=== PATIENT | male | born 1950 | race African-American/Black ===

== ENCOUNTER 2017-03-19 19:44 | Inpatient (IN) | payer MEDICARE, MEDICAID ==
[~2017-03-19] VITALS: Ht 185.4 cm; Wt 70.6 kg
[~2017-03-19 19:44] MED LIST: ASPI-498 OR; B-CO-5 OR; CARV6.25 PO; CINA60TA PO; CLON0.1T PO; CLON0.3T PO; CLOP75TA41 PO; CYCL25CA7 PO; FURO40TA4 PO; LOS50T PO; MYCO180T PO; NIFE10CA3 PO; NIFEDIPINE ER PO; OMEP20CA74 PO; SEVE800T8 PO; SIMV-8 PO; SPIR25TA89 PO
[2017-03-19 21:15] LABS: Basophils # (auto) 0.1 uL; Basophils % (auto) 1.1 % (0.0-2.0); Eosinophils # (auto) 0.2 uL; Eosinophils % (auto) 2.2 % (0.0-7.0); Hematocrit 33.4 % (41.0-53.0); Hemoglobin 11.1 g/dL (13.5-17.5); Lymphocytes # (auto) 1.1 uL; Mean Corpuscular Hemoglobin 30.2 pg (28.0-32.0); Mean Corpuscular Hgb Conc. 33.1 g/dL (32.0-36.0); Mean Corpuscular Volume 91.1 fL (80.0-100.0); Monocytes # (auto) 0.9 uL; Neutrophils # (auto) 7.6 uL; Neutrophils % (auto) 76.7 % (37.0-80.0); Platelet Count (auto) 142 10^3/uL (140-450); Red Blood Cells 3.67 10^6/uL (4.5-5.90); Red Cell Distribution Width 13.4 % (11.8-14.3); White Blood Cell 9.9 10^3/uL (4.4-10.8)
[2017-03-19 21:26] LABS: Alanine Aminotransferase 10 U/L (16-61); Albumin 3.1 g/dL (3.4-5.0); Alkaline Phosphatase 244 U/L (45-117); Anion Gap 13 (5-15); Aspartate Aminotransferase 6 U/L (15-37); Bilirubin, Total 0.4 mg/dL (0.2-1.0); Blood Urea Nitrogen 24 mg/dL (7-18); Calcium 8.2 mg/dL (8.5-10.1); Carbon Dioxide 30 mmol/L (21-32); Chloride 95 mmol/L (98-107); GFR African American 9 mL/min; GFR Non-African American 7 mL/min; Glucose 93 mg/dL (74-106); Potassium 4.1 mmol/L (3.5-5.1); Sodium 138 mmol/L (136-145); Total Protein 9.3 g/dL (6.4-8.2)
[2017-03-20] VITALS (9 sets, daily range): BP systolic 145–195; BP diastolic 72–86
[2017-03-20] MEDS ORDERED: ONDANSETRON HCL 4 MG/2 ML VIAL IV PRN (00:30)
[2017-03-20] MEDS ORDERED: ACETAMINOPHEN 500 MG TAB PO PRN (00:30)
[2017-03-20] MEDS: HYDROcodone-ACET 5/325MG TAB PO PRN ×2 (01:29→05:30)
[2017-03-20] MEDS ORDERED: cefTRIAXone 1GM/10ml IVPUSH 10 ML IV ONE (02:15)
[2017-03-20] MEDS ORDERED: CLINDAMYCIN 600MG IV 50 ML IV ONE (03:00)
[2017-03-20] MEDS: cloNIDine HCL 0.1 MG TAB PO SCH ×3 (05:29→21:11)
[2017-03-20] MEDS: MORPHINE SULFATE 4 MG/ML SYR/VIAL IV PRN ×2 (06:44→18:24)
[2017-03-20 08:59] LABS: Basophils # (auto) 0.1 uL; Basophils % (auto) 0.6 % (0.0-2.0); Eosinophils # (auto) 0.2 uL; Hematocrit 32.1 % (41.0-53.0); Hemoglobin 10.6 g/dL (13.5-17.5); Lymphocytes # (auto) 1.5 uL; Neutrophils # (auto) 6.6 uL; Neutrophils % (auto) 70.4 % (37.0-80.0); Nucleated Red Blood Cells % 0.1 %; Platelet Count (auto) 132 10^3/uL (140-450); Red Blood Cells 3.53 10^6/uL (4.5-5.90); Red Cell Distribution Width 13.8 % (11.8-14.3); White Blood Cell 9.4 10^3/uL (4.4-10.8)
[2017-03-20 09:08] LABS: BUN/Creatinine Ratio 2.8; Calcium 7.8 mg/dL (8.5-10.1); Potassium 4.3 mmol/L (3.5-5.1)
[2017-03-20] MEDS: SEVELAMER 800 MG TAB PO SCH ×3 (09:18→17:54)
[2017-03-20] MEDS ORDERED: CLOPIDOGREL BISULFATE 75 MG TAB PO SCH (10:00)
[2017-03-20] MEDS: CARVEDILOL 12.5 MG TAB PO SCH ×2 (10:23→21:12)
[2017-03-20] MEDS: ASPirin-EC 81 mg tab PO SCH (10:24)
[2017-03-20] MEDS ORDERED: LACTULOSE 20Gm/30ML SOLN PO ONE (13:00)
[2017-03-20] MEDS: CLINDAMYCIN HCL 150 MG CAP PO SCH ×2 (13:30→21:10)
[2017-03-20] MEDS ORDERED: CLINDAMYCIN 600MG IV 50 ML IV SCH (14:00)
[2017-03-20] MEDS ORDERED: NIFEdipine ER 30 MG TAB PO ONE (17:45)
[2017-03-20] MEDS: ATORVASTATIN 20 MG TAB PO SCH (21:12)
[2017-03-20] MEDS: LACTULOSE 20Gm/30ML SOLN PO SCH (21:24)
[2017-03-20] MEDS ORDERED: cefTRIAXone 1GM/10ml IVPUSH 10 ML IV SCH (22:00)
[2017-03-21] MEDS: HYDROcodone-ACET 5/325MG TAB PO PRN ×2 (02:53→22:39)
[2017-03-21] MEDS: CLINDAMYCIN HCL 150 MG CAP PO SCH ×3 (05:19→22:34)
[2017-03-21] MEDS: cloNIDine HCL 0.1 MG TAB PO SCH ×3 (05:20→22:33)
[2017-03-21 05:39] VITALS: BP 137/70
[2017-03-21 07:07] LABS: Basophils # (auto) 0.1 uL; Basophils % (auto) 0.8 % (0.0-2.0); Eosinophils # (auto) 0.3 uL; Eosinophils % (auto) 3.6 % (0.0-7.0); Hemoglobin 10.1 g/dL (13.5-17.5); Lymphocytes # (auto) 1.3 uL; Lymphocytes % (auto) 17.5 % (10.0-50.0); Mean Corpuscular Hemoglobin 30.8 pg (28.0-32.0); Mean Corpuscular Hgb Conc. 33.6 g/dL (32.0-36.0); Mean Corpuscular Volume 91.5 fL (80.0-100.0); Monocytes % (auto) 13.2 % (0.0-12.0); Neutrophils # (auto) 4.9 uL; Neutrophils % (auto) 64.9 % (37.0-80.0); Nucleated Red Blood Cells % 0.1 %; Platelet Count (auto) 122 10^3/uL (140-450); Red Blood Cells 3.28 10^6/uL (4.5-5.90); Red Cell Distribution Width 13.3 % (11.8-14.3); White Blood Cell 7.5 10^3/uL (4.4-10.8)
[2017-03-21 07:12] LABS: Calcium 8.2 mg/dL (8.5-10.1); Potassium 4.7 mmol/L (3.5-5.1)
[2017-03-21 07:21] LABS: BUN/Creatinine Ratio 3.1
[2017-03-21] MEDS: SEVELAMER 800 MG TAB PO SCH ×3 (08:20→17:13)
[2017-03-21 09:00] VITALS: BP 128/67
[2017-03-21] MEDS: MORPHINE SULFATE 4 MG/ML SYR/VIAL IV PRN ×2 (09:02→18:16)
[2017-03-21] MEDS: LACTULOSE 20Gm/30ML SOLN PO SCH ×2 (09:42→22:36)
[2017-03-21] MEDS: ASPirin-EC 81 mg tab PO SCH (09:44)
[2017-03-21] MEDS: CARVEDILOL 12.5 MG TAB PO SCH ×2 (09:44→22:35)
[2017-03-21] MEDS: NIFEdipine ER 30 MG TAB PO SCH (09:44)
[2017-03-21] MEDS ORDERED: CLOPIDOGREL BISULFATE 75 MG TAB PO SCH (10:00)
[2017-03-21] MEDS ORDERED: EPOETIN ALFA 10,000 UNIT/1 ML VIAL IV ONE (11:15)
[2017-03-21] MEDS ORDERED: SODIUM CHL 0.9% 1000 ML BAG XX ONE (11:15)
[2017-03-21 13:00] VITALS: BP 140/72
[2017-03-21] MEDS ORDERED: LABETALOL HCL 5 MG/ML ML 20ML VIAL IV PRN (15:45)
[2017-03-21 17:00] VITALS: BP 156/71
[2017-03-21] MEDS: Novasource Renal 8 Ounces PO SCH (17:13)
[2017-03-21] MEDS ORDERED: IOHEXOL 300 MG/ML 100ML BOTTLE IJ ONE (17:22)
[2017-03-21 22:00] VITALS: BP 150/72
[2017-03-21 22:24] VITALS: BP 170/78
[2017-03-21] MEDS: ATORVASTATIN 20 MG TAB PO SCH (22:33)
[2017-03-22 05:18] VITALS: BP 150/77
[2017-03-22] MEDS: CLINDAMYCIN HCL 150 MG CAP PO SCH (05:28)
[2017-03-22] MEDS: cloNIDine HCL 0.1 MG TAB PO SCH ×3 (05:29→22:40)
[2017-03-22 05:35] LABS: INR 1.09 (0.9-1.15); Partial Thromboplastin Time 34.5 sec (22.64-33.71); Prothrombin Time 11.9 sec (9.37-12.3)
[2017-03-22] MEDS: SEVELAMER 800 MG TAB PO SCH ×3 (08:00→17:53)
[2017-03-22] MEDS: Novasource Renal 8 Ounces PO SCH ×5 (08:00→22:41)
[2017-03-22 08:49] VITALS: BP 140/71
[2017-03-22] MEDS ORDERED: VANCOMYCIN PER PHARMACY 0 MG IV SCH (09:15)
[2017-03-22] MEDS: LACTULOSE 20Gm/30ML SOLN PO SCH ×2 (10:00→22:00)
[2017-03-22] MEDS: ASPirin-EC 81 mg tab PO SCH (10:00)
[2017-03-22] MEDS: ASCORBIC ACID 500 MG TAB PO SCH ×2 (10:00→22:41)
[2017-03-22] MEDS ORDERED: B-COMPLEX W/ C & FOLIC ACID(NEPHROVITE TAB) PO SCH (10:00)
[2017-03-22 11:36] LABS: BUN/Creatinine Ratio 2.3; Calcium 8.1 mg/dL (8.5-10.1)
[2017-03-22 11:38] LABS: Bilirubin, Total 0.4 mg/dL (0.2-1.0)
[2017-03-22] MEDS ORDERED: VANCOMYCIN 1GM/250ML 250 ML IV ONE (12:00)
[2017-03-22] MEDS: CARVEDILOL 12.5 MG TAB PO SCH ×2 (12:37→22:40)
[2017-03-22] MEDS: NIFEdipine ER 30 MG TAB PO SCH (12:38)
[2017-03-22] MEDS: PIPERACILLIN-TAZOB 2.25GM 50 ML IV SCH ×2 (12:40→22:39)
[2017-03-22 13:00] VITALS: BP 168/84
[2017-03-22] MEDS ORDERED: SODIUM CHL 0.9% 1000 ML BAG XX ONE (13:15)
[2017-03-22] MEDS ORDERED: MIDAZOLAM HCL 1MG/1ML-2 ML VIAL ONE (14:15)
[2017-03-22] MEDS ORDERED: fentaNYL CITRATE 100 MCG/2 ML VL ONE (14:16)
[2017-03-22 17:08] VITALS: BP 130/67
[2017-03-22] MEDS: HYDROcodone-ACET 5/325MG TAB PO PRN (18:44)
[2017-03-22 22:00] VITALS: BP 140/68
[2017-03-22 22:09] VITALS: BP 140/68
[2017-03-22] MEDS: ATORVASTATIN 20 MG TAB PO SCH (22:41)
[2017-03-22] MEDS: MORPHINE SULFATE 4 MG/ML SYR/VIAL IV PRN (22:57)
[2017-03-23 05:32] VITALS: BP 121/63
[2017-03-23 05:43] LABS: Hematocrit 28.8 % (41.0-53.0); Hemoglobin 9.6 g/dL (13.5-17.5); Mean Corpuscular Hemoglobin 30.4 pg (28.0-32.0); Mean Corpuscular Hgb Conc. 33.2 g/dL (32.0-36.0); Mean Corpuscular Volume 91.7 fL (80.0-100.0); Platelet Count (auto) 109 10^3/uL (140-450); Red Blood Cells 3.14 10^6/uL (4.5-5.90); Red Cell Distribution Width 13.8 % (11.8-14.3); White Blood Cell 11.8 10^3/uL (4.4-10.8)
[2017-03-23] MEDS: cloNIDine HCL 0.1 MG TAB PO SCH (05:43)
[2017-03-23 05:51] LABS: Calcium 8.3 mg/dL (8.5-10.1); Potassium 5.4 mmol/L (3.5-5.1)
[2017-03-23 05:57] LABS: Band Neutrophils % (manual) 0; Basophils % (manual) 0 (0.0-2.0); Metamyelocytes % 0; Myelocytes % 0; Promyelocytes % 0; Reactive Lymphocytes 0
[2017-03-23 05:58] LABS: Blast Cells 0
[2017-03-23 06:04] LABS: Albumin 2.8 g/dL (3.4-5.0); BUN/Creatinine Ratio 3.3; Bilirubin, Total 0.5 mg/dL (0.2-1.0); Total Protein 8.2 g/dL (6.4-8.2)
[2017-03-23] MEDS: SEVELAMER 800 MG TAB PO SCH (07:53)
[2017-03-23 09:18] VITALS: BP 135/64
[2017-03-23] MEDS: HYDROcodone-ACET 5/325MG TAB PO PRN ×2 (10:18→18:40)
[2017-03-23 12:11] LABS: Eosinophils % (manual) 1 (0-7); Lymphocytes % (manual) 11 (10.0-50.0); Monocytes % (manual) 7 (0-12)
[2017-03-23 12:18] VITALS: BP 125/68
[2017-03-23] MEDS: MORPHINE SULFATE 4 MG/ML SYR/VIAL IV PRN (14:37)
[2017-03-23 15:05] VITALS: BP 149/73
[2017-03-23 15:48] VITALS: BP 125/68
[2017-03-23] MEDS ORDERED: VANCOMYCIN 1GM/250ML 250 ML IV ONE (18:00)
== END 2017-03-23 18:50 | disposition home health service (06) | DRG 579 ==
LOC: ER 19:44 → EDBD 19:44 → TELE 19:45 → TELE-WESTW 03-20 02:10 → WEST WING 03-23 13:47
PROVIDERS: ADMIT Nurse Practitioner Family; ATTEND Internal Medicine
PROC: 0WBF3ZX Excision of Abdominal Wall, Percutaneous Approach, Diagnostic (ICD-10-PCS; principal; 2017-03-22)
PROC: 0W9G3ZZ Drainage of Peritoneal Cavity, Percutaneous Approach (ICD-10-PCS; 2017-03-22)
DX: S30.1XXA Contusion of abdominal wall, initial encounter (principal); J96.90 Respiratory failure, unspecified, unspecified whether with hypoxia or hypercapnia; N17.9 Acute kidney failure, unspecified; I13.2 Hypertensive heart and chronic kidney disease with heart failure and with stage 5 chronic kidney disease, or end stage renal disease; A41.9 Sepsis, unspecified organism; T86.11 Kidney transplant rejection; N18.6 End stage renal disease; L02.211 Cutaneous abscess of abdominal wall; Z94.0 Kidney transplant status; T86.12 Kidney transplant failure; C76.2 Malignant neoplasm of abdomen; Z99.2 Dependence on renal dialysis; K22.2 Esophageal obstruction; K21.9 Gastro-esophageal reflux disease without esophagitis; I50.9 Heart failure, unspecified; E03.9 Hypothyroidism, unspecified; E78.5 Hyperlipidemia, unspecified; B19.20 Unspecified viral hepatitis C without hepatic coma; M10.9 Gout, unspecified; I25.10 Atherosclerotic heart disease of native coronary artery without angina pectoris; D63.8 Anemia in other chronic diseases classified elsewhere; R19.09 Other intra-abdominal and pelvic swelling, mass and lump; K59.00 Constipation, unspecified; R20.0 Anesthesia of skin; R79.1 Abnormal coagulation profile; Z79.899 Other long term (current) drug therapy; Z82.0 Family history of epilepsy and other diseases of the nervous system; Z82.3 Family history of stroke; Z82.49 Family history of ischemic heart disease and other diseases of the circulatory system; Z86.73 Personal history of transient ischemic attack (TIA), and cerebral infarction without residual deficits; Z95.5 Presence of coronary angioplasty implant and graft; Z90.5 Acquired absence of kidney; I25.2 Old myocardial infarction; Z79.82 Long term (current) use of aspirin; Z88.1 Allergy status to other antibiotic agents; Z88.8 Allergy status to other drugs, medicaments and biological substances; Z71.3 Dietary counseling and surveillance
CPT/HCPCS: 10022; 36415; 72193; 74176; 76942; 80048; 80053; 80202; 82378; 84100; 84484; 85007; 85025; 85027; 85379; 85610; 85730; 87040; 87081; 87205; 90935; 93930; 93971; 94761; C1729; J0885; J1642; J2250; J2543; J3490

== ENCOUNTER 2017-04-15 14:35 | Inpatient (IN) | payer MEDICARE, MEDICAID ==
[~2017-04-15] VITALS: Ht 175.3 cm; Wt 61.1 kg
[~2017-04-15 14:35] MED LIST changes: -CLOP75TA41 PO
[2017-04-15 16:21] LABS: Basophils # (auto) 0.1 uL; Basophils % (auto) 1.2 % (0.0-2.0); Eosinophils # (auto) 0.2 uL; Eosinophils % (auto) 2.5 % (0.0-7.0); Hematocrit 26.8 % (41.0-53.0); Hemoglobin 8.9 g/dL (13.5-17.5); Lymphocytes # (auto) 1.2 uL; Lymphocytes % (auto) 18.7 % (10.0-50.0); Mean Corpuscular Hemoglobin 30.3 pg (28.0-32.0); Mean Corpuscular Hgb Conc. 33.2 g/dL (32.0-36.0); Mean Corpuscular Volume 91.2 fL (80.0-100.0); Monocytes # (auto) 0.6 uL; Monocytes % (auto) 8.7 % (0.0-12.0); Neutrophils # (auto) 4.4 uL; Neutrophils % (auto) 68.9 % (37.0-80.0); Nucleated Red Blood Cells % 0.1 %; Platelet Count (auto) 150 10^3/uL (140-450); Red Blood Cells 2.94 10^6/uL (4.5-5.90); Red Cell Distribution Width 13.7 % (11.8-14.3); White Blood Cell 6.4 10^3/uL (4.4-10.8)
[2017-04-15 16:48] LABS: Alanine Aminotransferase 9 U/L (16-61); Albumin 3.4 g/dL (3.4-5.0); Alkaline Phosphatase 222 U/L (45-117); Anion Gap 12 (5-15); Aspartate Aminotransferase 15 U/L (15-37); BUN/Creatinine Ratio 4.2; Bilirubin, Total 0.5 mg/dL (0.2-1.0); Blood Urea Nitrogen 38 mg/dL (7-18); Calcium 7.8 mg/dL (8.5-10.1); Carbon Dioxide 28 mmol/L (21-32); Chloride 94 mmol/L (98-107); GFR African American 8 mL/min; GFR Non-African American 6 mL/min; Glucose 138 mg/dL (74-106); Magnesium 2.5 mg/dL (1.6-2.6); Potassium 3.7 mmol/L (3.5-5.1); Sodium 134 mmol/L (136-145); Total Protein 10.1 g/dL (6.4-8.2)
[2017-04-15 16:55] LABS: INR 1.05 (0.9-1.15); Partial Thromboplastin Time 32.9 sec (22.64-33.71); Prothrombin Time 11.4 sec (9.37-12.3)
[2017-04-15] MEDS ORDERED: cefTRIAXone 1GM/10ml IVPUSH 10 ML IV ONE ×2 (20:05→20:15)
[2017-04-15] MEDS ORDERED: ACETAMINOPHEN 650 mg PER 20 mL UD PO ONE (21:30)
[2017-04-15] MEDS ORDERED: MORPHINE SULFATE 4 MG/ML SYR/VIAL IV PRN (22:15)
[2017-04-15] MEDS ORDERED: HYDROcodone-ACET 5/325MG TAB PO PRN (22:15)
[2017-04-15] MEDS ORDERED: ACETAMINOPHEN 325 MG TAB PO PRN (22:15)
[2017-04-15] MEDS ORDERED: ONDANSETRON HCL 4 MG/2 ML VIAL IV PRN (22:15)
[2017-04-15] MEDS ORDERED: NITROGLYCERIN 0.4 MG SL TAB SL PRN (22:15)
[2017-04-15 23:00] VITALS: BP 156/83
[2017-04-15 23:15] VITALS: BP 156/83
[2017-04-16] VITALS (8 sets, daily range): BP systolic 134–179; BP diastolic 64–78
[2017-04-16] MEDS ORDERED: CLOP75TA41 PO (04:03)
[2017-04-16] MEDS ORDERED: METO5TAB56 PO (04:03)
[2017-04-16] MEDS ORDERED: SODI650T PO (04:03)
[2017-04-16] MEDS ORDERED: NIFE60TA59 PO (04:03)
[2017-04-16] MEDS: cloNIDine HCL 0.1 MG TAB PO SCH ×3 (04:21→22:11)
[2017-04-16 06:35] LABS: Basophils # (auto) 0.1 uL; Eosinophils # (auto) 0.2 uL; Hematocrit 19.8 % (41.0-53.0); Mean Corpuscular Volume 90.2 fL (80.0-100.0); Monocytes # (auto) 0.8 uL
[2017-04-16 06:38] LABS: Eosinophils % (auto) 2.3 % (0.0-7.0); Lymphocytes # (auto) 1.3 uL; Lymphocytes % (auto) 18.7 % (10.0-50.0); Mean Corpuscular Hemoglobin 30.4 pg (28.0-32.0); Mean Corpuscular Hgb Conc. 33.7 g/dL (32.0-36.0); Monocytes % (auto) 11.8 % (0.0-12.0); Neutrophils # (auto) 4.5 uL; Neutrophils % (auto) 66.2 % (37.0-80.0); Nucleated Red Blood Cells % 0.1 %; Platelet Count (auto) 113 10^3/uL (140-450); Red Blood Cells 2.19 10^6/uL (4.5-5.90); Red Cell Distribution Width 13.6 % (11.8-14.3); White Blood Cell 6.8 10^3/uL (4.4-10.8)
[2017-04-16 06:48] LABS: Hemoglobin 6.7 g/dL (13.5-17.5)
[2017-04-16 06:52] LABS: Albumin 2.8 g/dL (3.4-5.0); Calcium 7.4 mg/dL (8.5-10.1); Potassium 4.1 mmol/L (3.5-5.1)
[2017-04-16 07:00] LABS: BUN/Creatinine Ratio 4.6; Bilirubin, Total 0.4 mg/dL (0.2-1.0)
[2017-04-16] MEDS: SPIRONOLACTONE 25 MG TAB PO SCH (10:00)
[2017-04-16] MEDS: ASPirin 81 mg TAB PO SCH (10:00)
[2017-04-16] MEDS: LOSARTAN POTASSIUM 50 MG TAB PO SCH (10:00)
[2017-04-16] MEDS: MYCOPHENOLATE 500 MG TAB PO SCH ×2 (10:00→22:00)
[2017-04-16] MEDS: ENOXAPARIN SOD 30 MG/0.3 ML SYRINGE SC SCH (10:00)
[2017-04-16] MEDS: CARVEDILOL 3.125 MG TAB PO SCH ×2 (10:00→23:11)
[2017-04-16] MEDS: SEVELAMER 800 MG TAB PO SCH ×3 (10:31→18:39)
[2017-04-16] MEDS: NIFEdipine ER 30 MG TAB PO SCH (10:34)
[2017-04-16] MEDS ORDERED: cloNIDine HCL 0.1 MG TAB PO ONE ×2 (11:30→13:30)
[2017-04-16] MEDS ORDERED: NITROGLYCERIN 0.4 MG SL TAB SL ONE (13:30)
[2017-04-16] MEDS: DOXYCYCLINE 100 MG TAB/CAP PO SCH ×2 (13:57→22:13)
[2017-04-16] MEDS: PRO-STAT 64 30ML PO SCH (18:39)
[2017-04-16] MEDS: Novasource Renal 8 Ounces PO SCH (18:39)
[2017-04-16] MEDS ORDERED: cefTRIAXone 1GM/10ml IVPUSH 10 ML IV SCH (22:00)
[2017-04-16] MEDS: ATORVASTATIN 20 MG TAB PO SCH (22:10)
[2017-04-16] MEDS: ASCORBIC ACID 500 MG TAB PO SCH (22:12)
[2017-04-17] VITALS (10 sets, daily range): BP systolic 141–158; BP diastolic 67–79
[2017-04-17] MEDS: TEMAZEPAM 15 MG CAP PO PRN (00:36)
[2017-04-17] MEDS: cloNIDine HCL 0.1 MG TAB PO SCH ×3 (06:00→22:30)
[2017-04-17 07:03] LABS: Basophils # (auto) 0.1 uL; Basophils % (auto) 1.1 % (0.0-2.0); Eosinophils # (auto) 0.2 uL; Eosinophils % (auto) 3.1 % (0.0-7.0); Lymphocytes # (auto) 1.3 uL; Monocytes # (auto) 0.7 uL; Red Blood Cells 2.46 10^6/uL (4.5-5.90); Red Cell Distribution Width 13.8 % (11.8-14.3)
[2017-04-17 07:06] LABS: Hematocrit 22.1 % (41.0-53.0); Hemoglobin 7.5 g/dL (13.5-17.5); Lymphocytes % (auto) 19.8 % (10.0-50.0); Mean Corpuscular Hemoglobin 30.6 pg (28.0-32.0); Mean Corpuscular Volume 89.8 fL (80.0-100.0); Neutrophils # (auto) 4.3 uL; Platelet Count (auto) 121 10^3/uL (140-450); White Blood Cell 6.6 10^3/uL (4.4-10.8)
[2017-04-17 07:21] LABS: BUN/Creatinine Ratio 4.6; Calcium 7.8 mg/dL (8.5-10.1); Magnesium 2.1 mg/dL (1.6-2.6); Potassium 4.1 mmol/L (3.5-5.1)
[2017-04-17] MEDS: SEVELAMER 800 MG TAB PO SCH ×3 (08:00→18:02)
[2017-04-17] MEDS: PRO-STAT 64 30ML PO SCH ×2 (08:00→18:02)
[2017-04-17] MEDS: Novasource Renal 8 Ounces PO SCH ×2 (08:00→18:02)
[2017-04-17] MEDS ORDERED: EPOETIN ALFA 10,000 UNIT/1 ML VIAL IV ONE (08:15)
[2017-04-17] MEDS ORDERED: LACTULOSE 20Gm/30ML SOLN PO PRN (09:15)
[2017-04-17] MEDS: ASPirin 81 mg TAB PO SCH (10:00)
[2017-04-17] MEDS: SPIRONOLACTONE 25 MG TAB PO SCH (10:00)
[2017-04-17] MEDS: LOSARTAN POTASSIUM 50 MG TAB PO SCH (10:00)
[2017-04-17] MEDS: MYCOPHENOLATE 500 MG TAB PO SCH ×2 (10:00→22:00)
[2017-04-17] MEDS: ENOXAPARIN SOD 30 MG/0.3 ML SYRINGE SC SCH (10:00)
[2017-04-17] MEDS ORDERED: ADENOSINE 59 MG in GIVE UN-DILUTED 0 ML IV STA (11:27)
[2017-04-17] MEDS: B-COMPLEX W/ C & FOLIC ACID(NEPHROVITE TAB) PO SCH (12:39)
[2017-04-17] MEDS: CARVEDILOL 3.125 MG TAB PO SCH ×2 (12:39→22:30)
[2017-04-17] MEDS: NIFEdipine ER 30 MG TAB PO SCH (12:41)
[2017-04-17] MEDS: ASCORBIC ACID 500 MG TAB PO SCH ×2 (12:41→22:28)
[2017-04-17] MEDS: DOXYCYCLINE 100 MG TAB/CAP PO SCH ×2 (12:41→22:28)
[2017-04-17] MEDS ORDERED: SENNA 8.6 MG TAB PO SCH (22:00)
[2017-04-17] MEDS: ATORVASTATIN 20 MG TAB PO SCH (22:28)
[2017-04-18] MEDS: TEMAZEPAM 15 MG CAP PO PRN (02:18)
[2017-04-18 05:00] VITALS: BP 142/73
[2017-04-18] MEDS: cloNIDine HCL 0.1 MG TAB PO SCH (06:00)
[2017-04-18 06:27] LABS: Basophils # (auto) 0.1 uL; Eosinophils # (auto) 0.2 uL; Eosinophils % (auto) 2.4 % (0.0-7.0); Hematocrit 26.5 % (41.0-53.0); Hemoglobin 8.8 g/dL (13.5-17.5); Lymphocytes # (auto) 1.3 uL; Lymphocytes % (auto) 18.6 % (10.0-50.0); Mean Corpuscular Hemoglobin 30.3 pg (28.0-32.0); Mean Corpuscular Hgb Conc. 33.4 g/dL (32.0-36.0); Mean Corpuscular Volume 90.7 fL (80.0-100.0); Monocytes # (auto) 0.8 uL; Monocytes % (auto) 12.1 % (0.0-12.0); Neutrophils # (auto) 4.5 uL; Neutrophils % (auto) 65.9 % (37.0-80.0); Nucleated Red Blood Cells % 0.1 %; Platelet Count (auto) 132 10^3/uL (140-450); Red Blood Cells 2.92 10^6/uL (4.5-5.90); Red Cell Distribution Width 13.8 % (11.8-14.3); White Blood Cell 6.8 10^3/uL (4.4-10.8)
[2017-04-18 07:00] LABS: BUN/Creatinine Ratio 4.6; Magnesium 2.5 mg/dL (1.6-2.6); Potassium 4.9 mmol/L (3.5-5.1)
[2017-04-18 08:00] VITALS: BP 142/73
[2017-04-18] MEDS: ENOXAPARIN SOD 30 MG/0.3 ML SYRINGE SC SCH (09:16)
[2017-04-18] MEDS: DOXYCYCLINE 100 MG TAB/CAP PO SCH (09:17)
[2017-04-18] MEDS: B-COMPLEX W/ C & FOLIC ACID(NEPHROVITE TAB) PO SCH (09:17)
[2017-04-18] MEDS: LOSARTAN POTASSIUM 50 MG TAB PO SCH (09:17)
[2017-04-18] MEDS: PRO-STAT 64 30ML PO SCH (09:18)
[2017-04-18 09:19] VITALS: BP 127/63
[2017-04-18] MEDS: NIFEdipine ER 30 MG TAB PO SCH (09:19)
[2017-04-18] MEDS: ASCORBIC ACID 500 MG TAB PO SCH (09:19)
[2017-04-18] MEDS: ASPirin 81 mg TAB PO SCH (09:20)
[2017-04-18] MEDS: CARVEDILOL 3.125 MG TAB PO SCH (09:20)
[2017-04-18] MEDS: SPIRONOLACTONE 25 MG TAB PO SCH (09:21)
[2017-04-18] MEDS: MYCOPHENOLATE 500 MG TAB PO SCH (09:21)
[2017-04-18] MEDS: Novasource Renal 8 Ounces PO SCH (09:21)
[2017-04-18] MEDS: SEVELAMER 800 MG TAB PO SCH (09:21)
[2017-04-18 12:00] VITALS: BP 148/65
== END 2017-04-18 12:30 | disposition home or self-care (01) | DRG 862 ==
LOC: EDBD 14:35 → ER 14:35 → TELE 14:36 → TELE-EAST 23:20
PROVIDERS: ADMIT Nurse Practitioner; ATTEND Internal Medicine
PROC: 5A1D70Z Performance of Urinary Filtration, Intermittent, Less than 6 Hours Per Day (ICD-10-PCS; principal; 2017-04-17)
PROC: 30233N1 Transfusion of Nonautologous Red Blood Cells into Peripheral Vein, Percutaneous Approach (ICD-10-PCS; 2017-04-17)
DX: T81.4XXA Infection following a procedure, initial encounter (principal); I50.43 Acute on chronic combined systolic (congestive) and diastolic (congestive) heart failure; I13.2 Hypertensive heart and chronic kidney disease with heart failure and with stage 5 chronic kidney disease, or end stage renal disease; Z76.82 Awaiting organ transplant status; N18.6 End stage renal disease; L02.211 Cutaneous abscess of abdominal wall; Z94.0 Kidney transplant status; K22.2 Esophageal obstruction; D63.8 Anemia in other chronic diseases classified elsewhere; E03.9 Hypothyroidism, unspecified; E78.5 Hyperlipidemia, unspecified; I25.10 Atherosclerotic heart disease of native coronary artery without angina pectoris; I35.1 Nonrheumatic aortic (valve) insufficiency; Y83.0 Surgical operation with transplant of whole organ as the cause of abnormal reaction of the patient, or of later complication, without mention of misadventure at the time of the procedure; G47.00 Insomnia, unspecified; M10.9 Gout, unspecified; K21.9 Gastro-esophageal reflux disease without esophagitis; Z82.0 Family history of epilepsy and other diseases of the nervous system; Z82.3 Family history of stroke; Z82.49 Family history of ischemic heart disease and other diseases of the circulatory system; Z86.73 Personal history of transient ischemic attack (TIA), and cerebral infarction without residual deficits; I25.2 Old myocardial infarction; Z99.2 Dependence on renal dialysis; Z99.81 Dependence on supplemental oxygen; Z88.1 Allergy status to other antibiotic agents; Z79.899 Other long term (current) drug therapy; Z88.2 Allergy status to sulfonamides; Z88.8 Allergy status to other drugs, medicaments and biological substances; Z71.3 Dietary counseling and surveillance; Y92.89 Other specified places as the place of occurrence of the external cause
CPT/HCPCS: 36415; 71045; 76705; 80048; 80053; 83605; 83735; 83880; 84484; 85025; 85610; 85730; 86850; 86900; 86901; 86920; 87040; 87081; 90935; 93005; 93306; 94761; 96374; J0153; J0885; J7517

== ENCOUNTER 2018-04-04 18:42 | Emergency (ER) | payer MEDICARE, MEDICAID ==
[~2018-04-04] VITALS: Ht 175.3 cm; Wt 61.2 kg
[~2018-04-04 18:42] MED LIST changes: -CINA60TA PO; -CLON0.3T PO; +CLOP75TA41 PO; -CYCL25CA7 PO; -FURO40TA4 PO; -LOS50T PO; +METO5TAB56 PO; -MYCO180T PO; -NIFE10CA3 PO; +NIFE60TA59 PO; -NIFEDIPINE ER PO; -OMEP20CA74 PO; +SODI650T PO; -SPIR25TA89 PO
[2018-04-04 19:46] LABS: Basophils # (auto) 0.1 uL; Basophils % (auto) 1.2 % (0.0-2.0); Eosinophils # (auto) 0.2 uL; Hematocrit 37.4 % (41.0-53.0); Hemoglobin 12.2 g/dL (13.5-17.5); Lymphocytes # (auto) 1.2 uL; Mean Corpuscular Hgb Conc. 32.6 g/dL (32.0-36.0); Mean Corpuscular Volume 89.1 fL (80.0-100.0); Monocytes # (auto) 0.9 uL; Monocytes % (auto) 15.7 % (0.0-12.0); Neutrophils # (auto) 3.1 uL; Neutrophils % (auto) 57.1 % (37.0-80.0); Nucleated Red Blood Cells % 0.1 %; Platelet Count (auto) 119 10^3/uL (140-450); Red Cell Distribution Width 17.3 % (11.8-14.3); White Blood Cell 5.4 10^3/uL (4.4-10.8)
[2018-04-04 20:02] LABS: Albumin 3.6 g/dL (3.4-5.0); Calcium 9.1 mg/dL (8.5-10.1); Potassium 4.3 mmol/L (3.5-5.1)
[2018-04-04 20:06] LABS: BUN/Creatinine Ratio 3.4; Bilirubin, Total 0.4 mg/dL (0.2-1.0)
[2018-04-05 01:17] VITALS: BP 145/67
== END 2018-04-05 01:24 | disposition home or self-care (01) ==
LOC: ER 18:51
DX: K66.8 Other specified disorders of peritoneum (principal); I25.10 Atherosclerotic heart disease of native coronary artery without angina pectoris; E78.5 Hyperlipidemia, unspecified; I25.2 Old myocardial infarction; I13.2 Hypertensive heart and chronic kidney disease with heart failure and with stage 5 chronic kidney disease, or end stage renal disease; N18.6 End stage renal disease; I50.9 Heart failure, unspecified; Z87.891 Personal history of nicotine dependence; Z88.2 Allergy status to sulfonamides; Z88.1 Allergy status to other antibiotic agents; Z79.01 Long term (current) use of anticoagulants; Z79.82 Long term (current) use of aspirin; Z79.899 Other long term (current) drug therapy
CPT/HCPCS: 36415; 80053; 85025; 87040

== ENCOUNTER 2018-04-18 18:07 | Emergency (ER) | payer MEDICARE, MEDICAID ==
[~2018-04-18] VITALS: Ht 188 cm; Wt 86.2 kg
[2018-04-18] MEDS ORDERED: cloNIDine HCL 0.1 MG TAB PO ONE ×2 (18:45→21:30)
[2018-04-18] MEDS ORDERED: ONDANSETRON HCL 4 MG/2 ML VIAL IV ONE (19:30)
[2018-04-18] MEDS ORDERED: MORPHINE SULFATE 4 MG/ML SYR/VIAL IV ONE (19:30)
[2018-04-18 22:29] VITALS: BP 227/104
== END 2018-04-18 22:37 | disposition home or self-care (01) ==
LOC: EDBD 18:07 → ER 18:07
DX: I16.0 Hypertensive urgency (principal); I13.2 Hypertensive heart and chronic kidney disease with heart failure and with stage 5 chronic kidney disease, or end stage renal disease; N18.6 End stage renal disease; I50.9 Heart failure, unspecified; I25.10 Atherosclerotic heart disease of native coronary artery without angina pectoris; E78.5 Hyperlipidemia, unspecified; I25.2 Old myocardial infarction; Z86.73 Personal history of transient ischemic attack (TIA), and cerebral infarction without residual deficits; Z87.891 Personal history of nicotine dependence
CPT/HCPCS: 70450; 96374; 96375; 99284; J2270; J2405

== ENCOUNTER → 2018-04-22 | Outpatient (CLI) | payer MEDICARE, MEDICAID | END | disposition home or self-care (01) | LOC: LAB 08:34 | PROVIDERS: ATTEND Surgery | DX: N50.1 Vascular disorders of male genital organs (principal) | CPT/HCPCS: 36415; 82565; 84520 ==

== ENCOUNTER 2019-05-31 10:43 | Inpatient (IN) | payer MEDICARE, MEDICAID ==
[~2019-05-31] VITALS: Ht 175.3 cm; Wt 65.1 kg
[~2019-05-31 10:43] MED LIST changes: +NIFE1TAB30 PO; -NIFE60TA59 PO
[2019-05-31] MEDS ORDERED: SODIUM CHLORIDE 0.9% 1,000 ML IV ONE (10:55)
[2019-05-31 11:21] LABS: Basophils # (auto) 0.1 10 ^3/uL (0-0.2); Eosinophils # (auto) 0.2 10 ^3/uL (0-0.8); Eosinophils % (auto) 1.6 % (0.0-7.0); Lymphocytes # (auto) 0.8 10 ^3/uL (0.4-5.4); Mean Corpuscular Hgb Conc. 32.9 g/dL (32.0-36.0); Monocytes # (auto) 0.7 10 ^3/uL (0-1.3); Platelet Count (auto) 205 10^3/uL (140-450)
[2019-05-31 11:22] LABS: Basophils % (auto) 0.9 % (0.0-2.0); Hematocrit 24.4 % (41.0-53.0); Hemoglobin 8.1 g/dL (13.5-17.5); Lymphocytes % (auto) 9.1 % (10.0-50.0); Mean Corpuscular Hemoglobin 28.3 pg (28.0-32.0); Mean Corpuscular Volume 85.9 fL (80.0-100.0); Monocytes % (auto) 7.1 % (0.0-12.0); Neutrophils # (auto) 7.5 10 ^3/uL (1.6-8.6); Neutrophils % (auto) 81.3 % (37.0-80.0); Nucleated Red Blood Cells % 0.1 %; Red Blood Cells 2.85 10^6/uL (4.5-5.90); Red Cell Distribution Width 14.8 % (11.8-14.3); White Blood Cell 9.2 10^3/uL (4.4-10.8)
[2019-05-31 11:35] LABS: Albumin 3.2 g/dL (3.4-5.0); Calcium 8.9 mg/dL (8.5-10.1)
[2019-05-31 11:39] LABS: BUN/Creatinine Ratio 2.8; Bilirubin, Total 0.6 mg/dL (0.2-1.0)
[2019-05-31 11:46] LABS: Potassium 3.7 mmol/L (3.5-5.1)
[2019-05-31 11:56] LABS: Magnesium 2.2 mg/dL (1.6-2.6)
[2019-05-31] MEDS ORDERED: FUROSEMIDE 40 MG/4 ML VIAL IV ONE (12:45)
[2019-05-31] MEDS ORDERED: FUROSEMIDE 100 MG/10ML VIAL IV ONE (13:15)
[2019-05-31] MEDS ORDERED: MORPHINE SULF INJ 2 MG/ML SYRINGE 1ML IV PRN (14:00)
[2019-05-31] MEDS ORDERED: NITROGLYCERIN 0.4 MG SL TAB SL PRN (14:00)
[2019-05-31] MEDS ORDERED: ONDANSETRON HCL 4 MG/2 ML VIAL IV PRN (14:00)
--- NOTE | 2019-05-31 15:10 | NUR ---
PATIENT ARRIVED TO ROOM FROM ER. PATIENT ORIENTED TO ROOM, CALL LIGHT BEDSIDE, BED IN LOCKED AND LOWEST POSITION AND 2X SIDE RAILS UP. NO COMPLAINTS OF PAIN/DISCOMFORT FROM PATIENT. VS 134/67, 98.9, 68HR, 95%RA, 18RR. WILL CONTINUE TO MONITOR Q1HR AND PRN
[2019-05-31 16:00] VITALS: BP 132/67
--- NOTE | 2019-05-31 16:30 | NUR ---
eMAR shows order for 30 ml/hr of NS started in ER. Per patient, he does not want any fluids administered
[2019-05-31 17:32] VITALS: BP 148/69
[2019-05-31] MEDS: SEVELAMER 800 MG TAB PO SCH (17:54)
[2019-05-31] MEDS ORDERED: PANT40TA2 PO (19:03)
[2019-05-31] MEDS ORDERED: DOCU-94 PO (19:03)
--- NOTE | 2019-05-31 19:10 | NUR ---
OPENING SHIFT NOTE: ASSUMED CARE OF PATIENT. PATIENT IS AWAKE, ALERT AND ORIENTED X4. NO S/S OF SOB OR DISTRESS AND PATIENT DENIES PAIN. BED IS LOW, LOCKED, TWO SIDE RAILS RAISED AND CALL ALANIS IS WITHIN REACH. PATIENT CONNECTED TO CONTINUOUS TELEMETRY MONITORING #74 AND CURRENT READING IS 72 BPM. INSTRUCTED PATIENT ON POC AND ENCOURAGED TO USE CALL LIGHT, PATIENT VERBALIZES UNDERSTANDING. WILL CONTINUE TO MONITOR FOR CHANGES Q1 HR AND PRN.
[2019-05-31 20:00] VITALS: BP 161/76
[2019-05-31] MEDS: ATORVASTATIN 20 MG TAB PO SCH (21:40)
[2019-05-31] MEDS: CARVEDILOL 12.5 MG TAB PO SCH (21:41)
[2019-05-31 22:00] VITALS: BP 161/76
[2019-05-31] MEDS ORDERED: CARVEDILOL 12.5 MG PO SCH (22:00)
[2019-06-01] VITALS (7 sets, daily range): BP systolic 143–182; BP diastolic 66–89
[2019-06-01] MEDS: TEMAZEPAM 15 MG CAP PO PRN ×2 (00:36→21:40)
[2019-06-01] MEDS: hydrALAZINE HCL 20 MG/ML VL IV PRN (05:19)
[2019-06-01 05:29] LABS: Basophils # (auto) 0.1 10 ^3/uL (0-0.2); Eosinophils # (auto) 0.2 10 ^3/uL (0-0.8); Hematocrit 23.7 % (41.0-53.0); Hemoglobin 7.8 g/dL (13.5-17.5); Mean Corpuscular Hgb Conc. 32.8 g/dL (32.0-36.0)
[2019-06-01 05:32] LABS: Basophils % (auto) 0.7 % (0.0-2.0); Eosinophils % (auto) 1.9 % (0.0-7.0); Lymphocytes % (auto) 8.4 % (10.0-50.0); Mean Corpuscular Hemoglobin 28.5 pg (28.0-32.0); Mean Corpuscular Volume 86.8 fL (80.0-100.0); Monocytes % (auto) 8.6 % (0.0-12.0); Neutrophils # (auto) 9.3 10 ^3/uL (1.6-8.6); Neutrophils % (auto) 80.4 % (37.0-80.0); Platelet Count (auto) 170 10^3/uL (140-450); Red Blood Cells 2.72 10^6/uL (4.5-5.90); Red Cell Distribution Width 14.9 % (11.8-14.3); White Blood Cell 11.6 10^3/uL (4.4-10.8)
[2019-06-01 05:44] LABS: Albumin 2.5 g/dL (3.4-5.0); BUN/Creatinine Ratio 3.3; Calcium 8.2 mg/dL (8.5-10.1); Potassium 4.2 mmol/L (3.5-5.1)
[2019-06-01 05:46] LABS: Bilirubin, Total 0.5 mg/dL (0.2-1.0); Total Protein 7.8 g/dL (6.4-8.2)
--- NOTE | 2019-06-01 06:30 | NUR ---
PATIENT BLOOD PRESSURE 160/70 AFTER 10 MG IV HYDRALAZINE. PATIENT IS CONCERNED BECAUSE HE STATES HE TAKES CLONIDINE 0.1 MG TID AT HOME AND IS NOT RECEIVING THE SAME MEDICATIONS AT THE HOSPITAL. PATIENT REQUESTS THAT I CALL A DOCTOR TO HAVE HIS CLONIDINE RESUMED WHILE IN THE HOSPITAL. WILL PAGE HOSPITALIST.
--- NOTE | 2019-06-01 06:40 | NUR ---
SPOKE WITH HOSPITALIST MD ECHEVARRIA, RECEIVED ORDER TO RESUME HOME MEDICATION OF CLONIDINE 0.1 MG TID, SEE EMAR FOR DETAILS.
[2019-06-01] MEDS: cloNIDine HCL 0.1 MG TAB PO SCH ×3 (06:48→21:42)
[2019-06-01] MEDS: SEVELAMER 800 MG TAB PO SCH ×3 (08:06→17:52)
[2019-06-01] MEDS: CLOPIDOGREL BISULFATE 75 MG TAB PO SCH (09:12)
[2019-06-01] MEDS: ASPirin-EC 81 mg tab PO SCH (09:12)
[2019-06-01] MEDS: FAMOTIDINE 20 MG TAB PO SCH (09:12)
[2019-06-01] MEDS: CARVEDILOL 12.5 MG TAB PO SCH ×2 (09:12→21:42)
[2019-06-01] MEDS: NIFEdipine ER 30 MG TAB PO SCH (09:13)
[2019-06-01] MEDS: LISINOPRIL 10 MG TAB PO SCH (09:14)
[2019-06-01] MEDS ORDERED: SODIUM CHL 0.9% 1000 ML BAG XX ONE (09:45)
[2019-06-01] MEDS ORDERED: metOLazone 5 MG TAB PO SCH (10:00)
[2019-06-01] MEDS ORDERED: PATIENTS OWN MEDICATION (Nifedipine (Nifedipine Er) 1 TAB) PO SCH (10:00)
--- NOTE | 2019-06-01 12:15 | NUR ---
DR BLACKMAN ON UNIT
--- NOTE | 2019-06-01 13:25 | NUR ---
DR FINCH BEDSIDE WITH PATIENT DISCUSSING PLAN OF CARE. ORDERS RECEIVED AND CARRIED OUT
--- NOTE | 2019-06-01 17:53 | NUR ---
DIALYSIS COMPLETE 4 LITERS REMOVED. PATIENT RESTING IN BED COMFORTABLY. BP 158/73. WILL CONTINUE TO MONITOR Q1H AND PRN
--- NOTE | 2019-06-01 19:10 | NUR ---
OPENING SHIFT NOTE: ASSUMED CARE OF PATIENT. PATIENT IS AWAKE, ALERT AND ORIENTED X4. NO S/S OF SOB OR DISTRESS AND PATIENT DENIES PAIN AT THIS TIME. BED IS LOW, LOCKED, TWO SIDE RAILS RAISED, AND CALL ALANIS IS WITHIN REACH. INSTRUCTED ON POC AND ENCOURAGED PATIENT TO CALL FOR ASSISTANCE, PATIENT VERBALIZED UNDERSTANDING. WILL CONTINUE TO MONITOR FOR CHANGES Q1 HR AND PRN.
[2019-06-01] MEDS ORDERED: EPOETIN ALFA 10,000 UNIT/1 ML VIAL SC ONE (21:00)
[2019-06-01] MEDS: ATORVASTATIN 20 MG TAB PO SCH (21:40)
--- NOTE | 2019-06-01 21:55 | NUR ---
PATIENT COMPLAINS OF PAIN IN BACK, 7/10, WILL MEDICATE FOR PAIN.
[2019-06-01] MEDS: HYDROcodone-ACET 5/325MG TAB PO PRN (21:57)
[2019-06-02 05:00] VITALS: BP 149/74
[2019-06-02] MEDS: ACETAMINOPHEN 500 MG TAB PO PRN ×2 (05:14→23:09)
--- NOTE | 2019-06-02 05:15 | NUR ---
TEMPERATURE OF 101.0, COOLING MEASURES IMPLEMENTED AND TYLENOL GIVEN. WILL CONTINUE TO MONITOR.
[2019-06-02 05:42] LABS: Basophils % (auto) 0.4 % (0.0-2.0); Eosinophils # (auto) 0.1 10 ^3/uL (0-0.8); Eosinophils % (auto) 0.7 % (0.0-7.0); Hemoglobin 7.5 g/dL (13.5-17.5); Lymphocytes # (auto) 0.6 10 ^3/uL (0.4-5.4); Mean Corpuscular Volume 84.9 fL (80.0-100.0); Red Cell Distribution Width 14.7 % (11.8-14.3)
[2019-06-02 05:44] LABS: Basophils # (auto) 0 10 ^3/uL (0-0.2); Hematocrit 22.8 % (41.0-53.0); Mean Corpuscular Hemoglobin 28.1 pg (28.0-32.0); Mean Corpuscular Hgb Conc. 33.1 g/dL (32.0-36.0); Monocytes # (auto) 0.9 10 ^3/uL (0-1.3); Neutrophils # (auto) 10.5 10 ^3/uL (1.6-8.6); Neutrophils % (auto) 86.9 % (37.0-80.0); Platelet Count (auto) 193 10^3/uL (140-450); Red Blood Cells 2.68 10^6/uL (4.5-5.90); White Blood Cell 12.1 10^3/uL (4.4-10.8)
[2019-06-02 05:57] LABS: Calcium 8.6 mg/dL (8.5-10.1); Potassium 4.5 mmol/L (3.5-5.1)
[2019-06-02 06:03] LABS: BUN/Creatinine Ratio 3.2
--- NOTE | 2019-06-02 06:03 | NUR ---
TEMPERATURE IS NOW 98.2. WILL CONTINUE TO MONITOR.
[2019-06-02] MEDS: cloNIDine HCL 0.1 MG TAB PO SCH ×3 (06:11→21:53)
--- NOTE | 2019-06-02 07:30 | NUR ---
Opening Shift Note Assumed care of patient, awake and alert, resting in bed. No S/S of distress/SOB or pain. Updated on POC and instructed to call for assistance PRN, patient verbalized understanding. Bed locked in lowest position, side rails up x2, call light within reach. Will continue to monitor for changes Q1hr and PRN.
[2019-06-02] MEDS: SEVELAMER 800 MG TAB PO SCH ×3 (08:32→17:40)
[2019-06-02 09:11] VITALS: BP 150/62
[2019-06-02] MEDS: NIFEdipine ER 30 MG TAB PO SCH (10:14)
[2019-06-02] MEDS: CLOPIDOGREL BISULFATE 75 MG TAB PO SCH (10:14)
[2019-06-02] MEDS: ASPirin-EC 81 mg tab PO SCH (10:14)
[2019-06-02] MEDS: CARVEDILOL 12.5 MG TAB PO SCH ×2 (10:15→21:53)
[2019-06-02] MEDS: LISINOPRIL 10 MG TAB PO SCH (10:15)
[2019-06-02] MEDS: FAMOTIDINE 20 MG TAB PO SCH (10:15)
[2019-06-02 12:30] VITALS: BP 146/68
--- NOTE | 2019-06-02 16:01 | NUR ---
assessment re: consult for independent living Patient is a 68 year old male who is alert and oriented. Patients cognitive abilities are intact. Prior to admission patient lived home with family and functioned independently. Patient informed me he is able to care for his own ADLs. Per patient he will return home to his prior living arrangements post discharge and family will transport him home. Patient has a fww and a cane for home use, but does not need to use them. Patient informed me his PCP is Dr Parish Azul. I informed patient of consult for independent living resources. Patient wanted to know about local apartment for the future. Patient stated he does not need anything at this time. I informed patient he has a right to speak to a social work professor regarding all care. I informed patient he has a right to participate in any and all discharge planning. Patient does not have a POA and advanced directive. I have offered patient information on POA and advanced directives. I informed the patient the advantages and benefits of having an Advanced Directive. Patient verbalized understanding and agreed to discharge plan. Addendum: 06/02/19 at 1611 by Rebeca Huerta Amended: Links added.
[2019-06-02 17:08] VITALS: BP 122/57
[2019-06-02 18:07] LABS: Hematocrit 24.2 % (41.0-53.0); Hemoglobin 7.9 g/dL (13.5-17.5)
--- NOTE | 2019-06-02 19:50 | NUR ---
Opening Shift Note Assumed care of patient, awake and alert. No S/S of distress/SOB or pain. Instructed on POC and to call for assist PRN, will continue to monitor for changes Q1hr and PRN. Patient stated to be cold, warm measuring taken.
[2019-06-02 20:00] VITALS: BP 139/67
--- NOTE | 2019-06-02 20:30 | NUR ---
Temperature Patient's temperature of 100.1, patients to have to pain but is extremely cold. Cooling measures taken.
[2019-06-02 21:48] VITALS: BP 139/67
[2019-06-02] MEDS: ATORVASTATIN 20 MG TAB PO SCH (21:53)
[2019-06-02] MEDS: TEMAZEPAM 15 MG CAP PO PRN (23:03)
--- NOTE | 2019-06-02 23:11 | NUR ---
Temperature Patient temperature of 102.7, cooling measures taken and Tylenol given.
[2019-06-03] VITALS (9 sets, daily range): BP systolic 133–172; BP diastolic 66–78
--- NOTE | 2019-06-03 00:10 | NUR ---
RE Temperature Temperature reassess 99.5 Patient complains of signs of pain or SOB.
[2019-06-03] MEDS: cloNIDine HCL 0.1 MG TAB PO SCH ×3 (05:38→21:35)
[2019-06-03 06:26] LABS: Basophils # (auto) 0.1 10 ^3/uL (0-0.2); Eosinophils # (auto) 0.1 10 ^3/uL (0-0.8); Lymphocytes # (auto) 0.9 10 ^3/uL (0.4-5.4); Monocytes # (auto) 0.8 10 ^3/uL (0-1.3); Neutrophils % (auto) 83.2 % (37.0-80.0)
[2019-06-03 06:30] LABS: Basophils % (auto) 0.8 % (0.0-2.0); Eosinophils % (auto) 1.1 % (0.0-7.0); Hematocrit 21.4 % (41.0-53.0); Hemoglobin 7.2 g/dL (13.5-17.5); Lymphocytes % (auto) 7.7 % (10.0-50.0); Mean Corpuscular Hemoglobin 28.5 pg (28.0-32.0); Mean Corpuscular Hgb Conc. 33.4 g/dL (32.0-36.0); Mean Corpuscular Volume 85.3 fL (80.0-100.0); Monocytes % (auto) 7.2 % (0.0-12.0); Neutrophils # (auto) 9.3 10 ^3/uL (1.6-8.6); Platelet Count (auto) 174 10^3/uL (140-450); Red Blood Cells 2.51 10^6/uL (4.5-5.90); Red Cell Distribution Width 14.7 % (11.8-14.3); White Blood Cell 11.2 10^3/uL (4.4-10.8)
[2019-06-03 06:49] LABS: Calcium 8.4 mg/dL (8.5-10.1); Potassium 4.9 mmol/L (3.5-5.1)
[2019-06-03 06:56] LABS: BUN/Creatinine Ratio 3.9
--- NOTE | 2019-06-03 06:58 | NUR ---
Critical Lab Creatine 10.40H. Patient is a dialysis patient and will have dialysis today. Page hospitalist, waiting to call back.
--- NOTE | 2019-06-03 07:02 | NUR ---
Patient aware of critical lab, no new orders given, will continue to monitor.
--- NOTE | 2019-06-03 07:04 | NUR ---
Closing Note Endorse care to dayshift nurse, nurse aware of critical lab.
--- NOTE | 2019-06-03 07:20 | NUR ---
Opening Shift Note Assumed care, patient is resting with eyes closed. No S/S of distress/SOB or pain. Bed locked in lowest position, side rails up x2, call light within reach. Will continue to monitor for changes Q1hr and PRN.
[2019-06-03] MEDS: SEVELAMER 800 MG TAB PO SCH ×3 (08:32→17:37)
[2019-06-03] MEDS: cefTRIAXone 1GM/50ML D5W 50 ML IV SCH ×2 (08:38→21:00)
[2019-06-03] MEDS: CLOPIDOGREL BISULFATE 75 MG TAB PO SCH (08:53)
[2019-06-03] MEDS: ASPirin-EC 81 mg tab PO SCH (08:53)
[2019-06-03] MEDS: FAMOTIDINE 20 MG TAB PO SCH (08:53)
[2019-06-03] MEDS: CARVEDILOL 12.5 MG TAB PO SCH ×2 (08:54→21:36)
[2019-06-03] MEDS: NIFEdipine ER 30 MG TAB PO SCH (08:54)
[2019-06-03] MEDS: LISINOPRIL 10 MG TAB PO SCH (08:54)
--- NOTE | 2019-06-03 09:09 | NUR ---
BLOOD PRESSURE MEDICATIONS PATIENT STATES HE DOES NOT TAKE BLOOD PRESSURE MEDICATIONS BEFORE DIALYSIS.
[2019-06-03] MEDS: LACTULOSE 20Gm/30ML SOLN PO SCH ×8 (10:21→23:20)
--- NOTE | 2019-06-03 10:21 | NUR ---
SPOKE WITH DR BLACKMAN RECEIVED NEW ORDERS FOR 2U PRBC TO BE GIVEN BY CARPENTRY TEACHER. ALSO, ADMINISTER LACTULOSE Q2 HOURS UNTIL PATIENT HAS BOWEL MOVEMENT. PATIENT TO PROVIDE STOOL OCCULT TO BE SENT TO LAB.
--- NOTE | 2019-06-03 12:00 | NUR ---
STEWARDESS SUPERVISOR AT BEDSIDE INFORMED RN THAT BLOOD PRODUCTS ARE READY AND ARE TO BE TRANSFUSED DURING DIALYSIS. WILL NOTIFY PRIMARY RN WHEN READY FOR BLOOD TO BE PICKED UP FROM LAB.
--- NOTE | 2019-06-03 12:47 | NUR ---
BLOOD TRANSFUSION BEGUN WITH HEALTH AND SAFETY CONSULTANT.
--- NOTE | 2019-06-03 13:30 | NUR ---
BLOOD TRANSFUSION COMPLETED. 500ML TRANSFUSED. VITALS STABLE. NO REACTION. PATIENT TOLERATED WELL.
--- NOTE | 2019-06-03 14:03 | NUR ---
2ND UNIT OF BLOOD STARTED BY GARBAGE WORKER. SEE TRANSFUSION LOG FOR VITALS.
--- NOTE | 2019-06-03 14:20 | NUR ---
2ND UNIT BLOOD TRANSFUSION COMPLETED. 500ML TRANSFUSED. VITALS STABLE PER INSURANCE REPRESENTATIVE. NO REACTION. PATIENT TOLERATED WELL.
--- NOTE | 2019-06-03 15:42 | NUR ---
DIALYSIS COMPLETED PER ARBORIST, PATIENT TOLERATED WELL, VITALS STABLE. 1.5L REMOVED. WILL CONTINUE CARE.
--- NOTE | 2019-06-03 20:00 | NUR ---
Opening Shift Note Assumed care of patient, awake and alert. No S/S of distress/SOB or pain. Instructed on POC and to call for assist PRN, will continue to monitor for changes Q1hr and PRN.
--- NOTE | 2019-06-03 20:30 | NUR ---
PT HAD BOWEL MOVEMENT PT'S STOOL SAMPLE SENT TO LAB. PATIENT ALSO STATED HAVING HEMORRHOIDS. NO PRIOR INFORMATION PROVIDED REGARDING THAT HISTORY. HISTORY UPDATED. WILL CONTINUE TO MONITOR. Addendum: 06/03/19 at 2051 by CLINT GARCIA RN HISTORY IN CHART.
[2019-06-03] MEDS: ATORVASTATIN 20 MG TAB PO SCH (21:36)
--- NOTE | 2019-06-03 22:00 | NUR ---
HOSPITALIST PAGED LAB CALLED. PATIENT'S BLOOD CULTURE SHOWED GRAM POSITIVE COCCI IN CHAINS. WILL AWAIT CALL BACK OR ORDERS.
[2019-06-03] MEDS ORDERED: VANCOMYCIN PER PHARMACY 0 MG IV SCH (22:15)
[2019-06-03] MEDS ORDERED: VANCOMYCIN 1GM/250ML 250 ML IV ONE (22:15)
--- NOTE | 2019-06-03 22:45 | NUR ---
IV insertion IV access obtained, via clean sterile technique by inserting 22 gauge catheter at RIGHT FOREARM after 2 attempt(s). IV secured properly. No trauma to site. Patient tolerated well. NOTE: []
--- NOTE | 2019-06-03 23:00 | NUR ---
BP MEDICATION REFUSED PATIENT'S RECHECK FOR BP WAS 156/76. MEDICATION ORDERED PRN FOR BP OVER 150. PATIENT AT THIS TIME REFUSING STATING THAT IT DOESN'T HELP AND THAT THEY WANT TO WAIT UNTIL MORNING. PATIENT INFORMED OF RISKS AND PATIENT VERBALIZED UNDERSTANDING. WILL CONTINUE TO MONITOR.
[2019-06-04] MEDS: TEMAZEPAM 15 MG CAP PO PRN ×2 (01:01→22:11)
[2019-06-04] MEDS: LACTULOSE 20Gm/30ML SOLN PO SCH ×11 (01:24→22:00)
[2019-06-04 05:00] VITALS: BP 159/75
[2019-06-04] MEDS: cloNIDine HCL 0.1 MG TAB PO SCH ×3 (05:15→22:04)
[2019-06-04] MEDS: hydrALAZINE HCL 20 MG/ML VL IV PRN (06:52)
[2019-06-04] MEDS ORDERED: SODIUM CHL 0.9% 1000 ML BAG XX ONE (07:00)
--- NOTE | 2019-06-04 07:30 | NUR ---
Opening shift note Care of patient assumed from NOC RN. Patient is AOx4, no s/s of sob, pain, or distress noted at this time. I updated patient on plan of care and patient verbalized understanding. Bed is in lowest locked position, side rails up x2, and call light within reach. I will continue to monitor Q1hr and PRN.
[2019-06-04 09:00] VITALS: BP 156/73
[2019-06-04] MEDS: SEVELAMER 800 MG TAB PO SCH ×3 (10:49→17:43)
[2019-06-04] MEDS: CLOPIDOGREL BISULFATE 75 MG TAB PO SCH (10:49)
[2019-06-04] MEDS: ASPirin-EC 81 mg tab PO SCH (10:49)
[2019-06-04] MEDS: NIFEdipine ER 30 MG TAB PO SCH (10:49)
[2019-06-04] MEDS: FAMOTIDINE 20 MG TAB PO SCH (10:49)
[2019-06-04] MEDS: cefTRIAXone 1GM/50ML D5W 50 ML IV SCH ×2 (10:50→22:02)
[2019-06-04] MEDS: CARVEDILOL 12.5 MG TAB PO SCH ×2 (10:50→22:03)
[2019-06-04] MEDS: LISINOPRIL 10 MG TAB PO SCH (10:50)
--- NOTE | 2019-06-04 10:55 | NUR ---
Physician rounding Dr. Severino at bedside. Updated him on patient status. No new orders at this time.
[2019-06-04 11:40] LABS: Basophils # (auto) 0.1 10 ^3/uL (0-0.2); Basophils % (auto) 0.8 % (0.0-2.0); Eosinophils # (auto) 0.1 10 ^3/uL (0-0.8); Eosinophils % (auto) 1.2 % (0.0-7.0); Hematocrit 25.9 % (41.0-53.0); Hemoglobin 8.7 g/dL (13.5-17.5); Lymphocytes # (auto) 0.9 10 ^3/uL (0.4-5.4); Lymphocytes % (auto) 8.1 % (10.0-50.0); Mean Corpuscular Hemoglobin 28.7 pg (28.0-32.0); Mean Corpuscular Hgb Conc. 33.5 g/dL (32.0-36.0); Mean Corpuscular Volume 85.8 fL (80.0-100.0); Monocytes # (auto) 1.2 10 ^3/uL (0-1.3); Monocytes % (auto) 11.1 % (0.0-12.0); Neutrophils # (auto) 8.3 10 ^3/uL (1.6-8.6); Neutrophils % (auto) 78.8 % (37.0-80.0); Nucleated Red Blood Cells % 0.1 %; Platelet Count (auto) 178 10^3/uL (140-450); Red Blood Cells 3.02 10^6/uL (4.5-5.90); Red Cell Distribution Width 14.8 % (11.8-14.3); White Blood Cell 10.6 10^3/uL (4.4-10.8)
[2019-06-04 13:00] VITALS: BP 135/73
--- NOTE | 2019-06-04 13:20 | NUR ---
Called pharmacy Spoke with Clarence regarding patients vancomycin order, per Tein the patients vanco trough level is too elevated to give the medication. Per Tein pharmacy is monitoring the patient and it is most likely patient will receive vancomycin tomorrow once dialysis is done.
--- NOTE | 2019-06-04 13:40 | NUR ---
assessed B/P and patient refusing 1400 BP Patients B/p is currently 135/73, HR is 67 bpm. patient stated " My blood pressure is fine, i do not want my blood pressure medication right now, if i take it i know it will drop." Educated patient about medication, patient verbalized understanding. No s/s of distress noted.
[2019-06-04 17:00] VITALS: BP 134/59
--- NOTE | 2019-06-04 19:10 | NUR ---
end of shift note care of patient endorsed to NOC PRIMO Kamara. no s/s of distress noted at this time.
[2019-06-04] MEDS ORDERED: EPOETIN ALFA 10,000 UNIT/1 ML VIAL SC ONE (21:00)
[2019-06-04 22:00] VITALS: BP 150/65
[2019-06-04] MEDS: ATORVASTATIN 20 MG TAB PO SCH (22:03)
[2019-06-05] MEDS: LACTULOSE 20Gm/30ML SOLN PO SCH ×10 (02:00→18:00)
[2019-06-05 05:00] VITALS: BP 138/73
[2019-06-05] MEDS: cloNIDine HCL 0.1 MG TAB PO SCH ×4 (06:00→21:46)
[2019-06-05] MEDS ORDERED: SODIUM CHL 0.9% 1000 ML BAG XX ONE (07:00)
--- NOTE | 2019-06-05 07:25 | NUR ---
Opening shift note Assumed care from NOC RN Anh. Patient is AOx4 no s/s of distress noted at this time. Bed is in lowest locked position, call light is with in reach. Updated patient on plan of care, they verbalized understanding. I will continue to monitor Q 1HR and PRN.
[2019-06-05] MEDS: SEVELAMER 800 MG TAB PO SCH ×3 (08:27→18:03)
[2019-06-05 09:00] VITALS: BP 149/69
[2019-06-05] MEDS: cefTRIAXone 1GM/50ML D5W 50 ML IV SCH ×2 (09:00→21:00)
[2019-06-05] MEDS: CLOPIDOGREL BISULFATE 75 MG TAB PO SCH (10:00)
[2019-06-05] MEDS: LISINOPRIL 10 MG TAB PO SCH (10:00)
[2019-06-05] MEDS: ASPirin-EC 81 mg tab PO SCH (10:00)
[2019-06-05] MEDS: NIFEdipine ER 30 MG TAB PO SCH (10:00)
[2019-06-05] MEDS: FAMOTIDINE 20 MG TAB PO SCH (10:00)
[2019-06-05] MEDS: CARVEDILOL 12.5 MG TAB PO SCH ×2 (10:00→21:46)
--- NOTE | 2019-06-05 10:44 | NUR ---
called Dialysis center to get dialysis time for the patient, awaiting call back.
--- NOTE | 2019-06-05 10:50 | NUR ---
Dialysis nurse at bedside. Per nurse hold AM medications.
[2019-06-05 13:00] VITALS: BP 160/82
--- NOTE | 2019-06-05 14:47 | NUR ---
Dialysis complete per dialysis nurse 3 L were removed and patient tolerated procedure well. Current B/P is 154/79. I will give PRN B/P medications are ordered.
[2019-06-05 16:55] VITALS: BP 135/57
[2019-06-05] MEDS ORDERED: VANCOMYCIN 1GM/250ML 250 ML IV ONE (17:30)
--- NOTE | 2019-06-05 19:14 | NUR ---
end of shift note care of patient endorsed to noc geoff britton. no s/s of distress noted at this time.
[2019-06-05] MEDS ORDERED: LACTULOSE 20Gm/30ML SOLN PO PRN (20:00)
[2019-06-05] MEDS ORDERED: EPOETIN ALFA 10,000 UNIT/1 ML VIAL SC ONE (21:00)
[2019-06-05] MEDS: TEMAZEPAM 15 MG CAP PO PRN (21:45)
[2019-06-05] MEDS: ATORVASTATIN 20 MG TAB PO SCH (21:45)
[2019-06-05 21:52] VITALS: BP 264/71
[2019-06-06 04:59] VITALS: BP 141/81
[2019-06-06] MEDS: cloNIDine HCL 0.1 MG TAB PO SCH ×3 (06:33→21:28)
[2019-06-06 09:00] VITALS: BP 159/73
[2019-06-06] MEDS: cefTRIAXone 1GM/50ML D5W 50 ML IV SCH ×2 (09:41→21:33)
[2019-06-06] MEDS: FAMOTIDINE 20 MG TAB PO SCH (09:44)
[2019-06-06] MEDS: SEVELAMER 800 MG TAB PO SCH ×3 (09:45→16:59)
[2019-06-06] MEDS: CARVEDILOL 12.5 MG TAB PO SCH ×2 (09:45→21:33)
[2019-06-06] MEDS: NIFEdipine ER 30 MG TAB PO SCH (09:45)
[2019-06-06] MEDS: CLOPIDOGREL BISULFATE 75 MG TAB PO SCH (09:46)
[2019-06-06] MEDS: ASPirin-EC 81 mg tab PO SCH (09:46)
[2019-06-06] MEDS: LISINOPRIL 10 MG TAB PO SCH (09:46)
--- NOTE | 2019-06-06 11:22 | NUR ---
DR DOZIER SAW PATIENT AND DISCUSSED POC. REPORTS HE IS WAITING ON BLOOD CULTURES AND PT MAY POSSIBLY DC TOMORROW.
--- NOTE | 2019-06-06 12:57 | NUR ---
PT BP154/73, HR 62. WENT TO GIVE IV APRESOLINE PRN, PT REPORTS HE DOES NOT WANT IT, PT REPORTS,"IT DOESN'T WORK. AND IT'S ALMOST TIME FOR MY CATAPRES." HYDRALAZINE WASTED.
[2019-06-06 13:00] VITALS: BP 154/73
[2019-06-06 17:00] VITALS: BP 121/67
[2019-06-06] MEDS: ATORVASTATIN 20 MG TAB PO SCH (21:33)
[2019-06-06] MEDS: TEMAZEPAM 15 MG CAP PO PRN (21:34)
[2019-06-06 22:53] VITALS: BP 129/59
[2019-06-07] MEDS: MORPHINE SULF INJ 2 MG/ML SYRINGE 1ML IV PRN ×2 (01:34→04:27)
--- NOTE | 2019-06-07 01:35 | NUR ---
CHESTPAIN PATIENT C/O 4/10 LEFT UPPER CHEST PAIN NONRADIATING. PATIENT BP 138/65 HR 66. ADMINISTERED MORPHINE 2MG IV PRESCRIBED. WILL CONTINUE TO MONITOR PATIENT.
--- NOTE | 2019-06-07 03:23 | NUR ---
CHESTPAIN PATIENT C/O CHEST PAIN 8/10 LEFT UPPER RADIATION TO BACK. PATIENT VITALS TEMP 98.1 HR 63 RR 20 BP 147/70 O2 99%. OBTAINED EKG SR. REPORTED PATIENT CONDITION DR. VELASCO RECEIVED ORDER TO ADD TROPONIN TO AM LABS [facility].
--- NOTE | 2019-06-07 04:28 | NUR ---
CHESTPAIN PATIENT C/O 10 LEFT UPPER CHEST PAIN NONRADIATING. ADMINISTERED MORPHINE 2MG IV PRESCRIBED. WILL CONTINUE TO MONITOR PATIENT.
[2019-06-07 05:00] VITALS: BP 154/73
[2019-06-07] MEDS: cloNIDine HCL 0.1 MG TAB PO SCH ×2 (05:36→12:25)
[2019-06-07] MEDS: HYDROcodone-ACET 5/325MG TAB PO PRN (05:37)
[2019-06-07 06:12] LABS: Basophils # (auto) 0.1 10 ^3/uL (0-0.2); Eosinophils # (auto) 0.3 10 ^3/uL (0-0.8); Hematocrit 28.5 % (41.0-53.0); Hemoglobin 9.5 g/dL (13.5-17.5); Lymphocytes % (auto) 10.5 % (10.0-50.0); Mean Corpuscular Hemoglobin 28.6 pg (28.0-32.0); Mean Corpuscular Hgb Conc. 33.4 g/dL (32.0-36.0); Mean Corpuscular Volume 85.6 fL (80.0-100.0); Monocytes # (auto) 1.2 10 ^3/uL (0-1.3); Monocytes % (auto) 13.5 % (0.0-12.0); Neutrophils # (auto) 6.6 10 ^3/uL (1.6-8.6); Platelet Count (auto) 193 10^3/uL (140-450); Red Blood Cells 3.33 10^6/uL (4.5-5.90); Red Cell Distribution Width 14.8 % (11.8-14.3); White Blood Cell 9.2 10^3/uL (4.4-10.8)
[2019-06-07 06:23] LABS: Calcium 8.7 mg/dL (8.5-10.1)
[2019-06-07 09:00] VITALS: BP 159/74
[2019-06-07] MEDS: cefTRIAXone 1GM/50ML D5W 50 ML IV SCH (09:33)
[2019-06-07] MEDS: FAMOTIDINE 20 MG TAB PO SCH (09:36)
[2019-06-07] MEDS: LISINOPRIL 10 MG TAB PO SCH (09:37)
[2019-06-07] MEDS: CLOPIDOGREL BISULFATE 75 MG TAB PO SCH (09:37)
[2019-06-07] MEDS: ASPirin-EC 81 mg tab PO SCH (09:38)
[2019-06-07] MEDS: SEVELAMER 800 MG TAB PO SCH ×2 (09:38→12:25)
[2019-06-07] MEDS: NIFEdipine ER 30 MG TAB PO SCH (09:38)
[2019-06-07] MEDS: CARVEDILOL 12.5 MG TAB PO SCH (09:39)
--- NOTE | 2019-06-07 10:18 | NUR ---
DR DOZIER SAW PATIENT AND DISCUSSED POC. MD REPORTS HE WILL CHECK WITH DR BLACKMAN TO SEE IF PATIENT CAN DC OR IF HE NEEDS DIALYSIS FIRST, NO ORDERS FOR DIALYSIS PLACED TODAY. MD REPORTS BLOOD CULTURES NEGATIVE. PT AWARE. NOTIFIED DR DOZIER PT BP HAS BEEN IN THE 150'S AND PT DOES NOT WANT HYDRALAZINE, MD AWARE. NOTIFIED MD PT HAS CRITICAL CREATINE OF 10.20 AND HAD CHEST PAIN LAST NIGHT. MD AWARE, NO NEW ORDERS.
--- NOTE | 2019-06-07 10:21 | NUR ---
CALLED DR CROSS OFFICE, LEFT MESSAGE WITH STAFF REQUESTING CALL BACK.
[2019-06-07] MEDS ORDERED: SODIUM CHL 0.9% 1000 ML BAG XX ONE (11:15)
[2019-06-07 13:00] VITALS: BP 147/65
--- NOTE | 2019-06-07 13:44 | NUR ---
DIALYSIS NURSE HERE, SHE REPORTS SHE IS ABOUT TO DIALYZE PATIENT.
[2019-06-07 14:32] VITALS: BP 159/74
--- NOTE | 2019-06-07 16:11 | NUR ---
PT REPORTS HE NEEDS ASSISTANCE WITH A RIDE HOME. CALLED [facility]DE[employer] [employer]FF[employer] SERVICES ASSISTANT, SHE REPORTS SHE WILL COME BRING TAXI VOUCHER.
[2019-06-07 17:00] VITALS: BP 127/68
--- NOTE | 2019-06-07 17:36 | NUR ---
CALLED [facility], THEY REPORT THEY WILL BE HERE IN 10 TO 15 MINUTES. PT O2 ON ROOM AIR IS 98% WHILE AMBULATING IN HALLWAYS.
--- NOTE | 2019-06-07 17:50 | NUR ---
Discharge instructions given as ordered. Encourage to follow up with PMD Dr Azul as instructed. All questions and concerns addressed. Patient verbalized understanding. Medication reconciliation form completed and copy given to patient. Home medications held in Pharmacy returned to patient. IV's removed with catheters intact, pressure dressings applied. Telemetry unit returned to ICU. Patient taken to taxi via wheelchair with all personal belongings, accompanied by staff. No distress noted at time of departure.
--- NOTE | 2019-06-07 18:34 | NUR ---
PT DIALYSIS OUTPUT 3L REPORTED BY DIALYSIS NURSE. Addendum: 06/07/19 at 1836 by ZEUS SNYDER RN LAST BP 135/67, HR 72.
[2019-06-07] MEDS ORDERED: EPOETIN ALFA 10,000 UNIT/1 ML VIAL SC ONE (21:00)
== END 2019-06-07 18:00 | disposition home or self-care (01) | DRG 280 ==
LOC: EDBD 10:43 → ER 10:43 → EDUNIT# 10:43 → TELE 10:44 → TELE-WESTW 15:04
PROVIDERS: ADMIT Nurse Practitioner Acute Care; ATTEND Family Medicine
PROC: 5A1D70Z Performance of Urinary Filtration, Intermittent, Less than 6 Hours Per Day (ICD-10-PCS; principal; 2019-06-01)
PROC: 5A1D70Z Performance of Urinary Filtration, Intermittent, Less than 6 Hours Per Day (ICD-10-PCS; 2019-06-03)
PROC: 30233N1 Transfusion of Nonautologous Red Blood Cells into Peripheral Vein, Percutaneous Approach (ICD-10-PCS; 2019-06-03)
PROC: 5A1D70Z Performance of Urinary Filtration, Intermittent, Less than 6 Hours Per Day (ICD-10-PCS; 2019-06-05)
PROC: 5A1D70Z Performance of Urinary Filtration, Intermittent, Less than 6 Hours Per Day (ICD-10-PCS; 2019-06-07)
DX: I13.2 Hypertensive heart and chronic kidney disease with heart failure and with stage 5 chronic kidney disease, or end stage renal disease (principal); I50.43 Acute on chronic combined systolic (congestive) and diastolic (congestive) heart failure; I21.A1 Myocardial infarction type 2; N18.6 End stage renal disease; E44.0 Moderate protein-calorie malnutrition; E87.1 Hypo-osmolality and hyponatremia; J91.8 Pleural effusion in other conditions classified elsewhere; R78.81 Bacteremia; D63.1 Anemia in chronic kidney disease; I16.0 Hypertensive urgency; R79.89 Other specified abnormal findings of blood chemistry; I25.10 Atherosclerotic heart disease of native coronary artery without angina pectoris; R06.03 Acute respiratory distress; M10.9 Gout, unspecified; E78.5 Hyperlipidemia, unspecified; K59.00 Constipation, unspecified; Y83.0 Surgical operation with transplant of whole organ as the cause of abnormal reaction of the patient, or of later complication, without mention of misadventure at the time of the procedure; Z79.02 Long term (current) use of antithrombotics/antiplatelets; Z79.899 Other long term (current) drug therapy; I25.2 Old myocardial infarction; Z86.73 Personal history of transient ischemic attack (TIA), and cerebral infarction without residual deficits; Z99.2 Dependence on renal dialysis; Z82.0 Family history of epilepsy and other diseases of the nervous system; Z82.49 Family history of ischemic heart disease and other diseases of the circulatory system; Z95.5 Presence of coronary angioplasty implant and graft; Z90.5 Acquired absence of kidney; Z82.3 Family history of stroke; Z68.21 Body mass index [BMI] 21.0-21.9, adult; B95.4 Other streptococcus as the cause of diseases classified elsewhere
CPT/HCPCS: 36415; 71045; 71046; 80048; 80053; 80202; 82270; 82306; 82565; 83735; 83880; 83970; 84100; 84443; 84484; 85014; 85018; 85025; 86141; 86850; 86900; 86901; 86920; 87040; 87077; 87081; 87186; 90935; 93005; 96361; 96374; G0378; J0696; J0885; J1642; J2405

== ENCOUNTER 2020-03-14 21:54 | Inpatient (IN) | payer MEDICARE, MEDICAID ==
[~2020-03-14] VITALS: Ht 175.3 cm; Wt 69.0 kg
[~2020-03-14 21:54] MED LIST changes: -CLOP75TA41 PO; +CLOP75TA70 PO; +DOCU-94 PO; +PANT40TA2 PO
[2020-03-14 22:59] LABS: Basophils # (auto) 0.1 10 ^3/uL (0-0.2); Eosinophils # (auto) 0.3 10 ^3/uL (0-0.8); Eosinophils % (auto) 4.9 % (0.0-7.0); Hematocrit 35.8 % (41.0-53.0); Hemoglobin 11.9 g/dL (13.5-17.5); Lymphocytes # (auto) 1.5 10 ^3/uL (0.4-5.4); Lymphocytes % (auto) 27.1 % (10.0-50.0); Mean Corpuscular Hemoglobin 29.6 pg (28.0-32.0); Mean Corpuscular Hgb Conc. 33.1 g/dL (32.0-36.0); Mean Corpuscular Volume 89.6 fL (80.0-100.0); Monocytes # (auto) 0.7 10 ^3/uL (0-1.3); Monocytes % (auto) 13.5 % (0.0-12.0); Neutrophils # (auto) 2.9 10 ^3/uL (1.6-8.6); Neutrophils % (auto) 53.5 % (37.0-80.0); Platelet Count (auto) 103 10^3/uL (140-450); Red Cell Distribution Width 14.1 % (11.8-14.3); White Blood Cell 5.4 10^3/uL (4.4-10.8)
[2020-03-14 23:22] LABS: INR 1.08 (0.9-1.15); Partial Thromboplastin Time 31.8 sec (23.0-31.2)
[2020-03-14 23:29] LABS: Albumin 3.6 g/dL (3.4-5.0); Calcium 7.8 mg/dL (8.5-10.1); Potassium 4.3 mmol/L (3.5-5.1)
[2020-03-14 23:33] LABS: BUN/Creatinine Ratio 4.3; Magnesium 2.1 mg/dL (1.6-2.6)
[2020-03-14 23:38] LABS: Bilirubin, Total 0.3 mg/dL (0.2-1.0); Total Protein 8.1 g/dL (6.4-8.2)
[2020-03-15] MEDS ORDERED: ENOXAPARIN SOD 60 MG/0.6 ML SYRINGE SC ONE (01:00)
[2020-03-15] MEDS ORDERED: ACETAMINOPHEN 325 MG TAB PO PRN (01:45)
[2020-03-15] MEDS ORDERED: NITROGLYCERIN 0.4 MG SL TAB SL PRN ×2 (01:45)
[2020-03-15] MEDS ORDERED: MORPHINE SULF INJ 2 MG/ML SYRINGE 1ML IV PRN (01:45)
[2020-03-15] MEDS ORDERED: SODIUM CHLORIDE 0.9% 1,000 ML IV SCH (01:45)
[2020-03-15 04:27] LABS: Calcium 7.4 mg/dL (8.5-10.1); Potassium 4.6 mmol/L (3.5-5.1)
[2020-03-15 04:35] LABS: BUN/Creatinine Ratio 4.4
[2020-03-15 06:51] LABS: Basophils # (auto) 0.1 10 ^3/uL (0-0.2); Basophils % (auto) 1.2 % (0.0-2.0); Eosinophils # (auto) 0.3 10 ^3/uL (0-0.8); Eosinophils % (auto) 5.3 % (0.0-7.0); Hematocrit 32.7 % (41.0-53.0); Lymphocytes # (auto) 1.5 10 ^3/uL (0.4-5.4); Lymphocytes % (auto) 28.7 % (10.0-50.0); Mean Corpuscular Hemoglobin 30.2 pg (28.0-32.0); Mean Corpuscular Hgb Conc. 33.7 g/dL (32.0-36.0); Mean Corpuscular Volume 89.6 fL (80.0-100.0); Monocytes # (auto) 0.7 10 ^3/uL (0-1.3); Monocytes % (auto) 13.5 % (0.0-12.0); Neutrophils # (auto) 2.6 10 ^3/uL (1.6-8.6); Neutrophils % (auto) 51.3 % (37.0-80.0); Nucleated Red Blood Cells % 0.1 %; Platelet Count (auto) 94 10^3/uL (140-450); Red Blood Cells 3.65 10^6/uL (4.5-5.90); Red Cell Distribution Width 14.3 % (11.8-14.3); White Blood Cell 5.1 10^3/uL (4.4-10.8)
[2020-03-15 09:11] VITALS: BP 176/70
[2020-03-15] MEDS ORDERED: LISINOPRIL 5 MG TAB PO SCH (10:00)
[2020-03-15] MEDS: ASPirin 81 mg TAB PO SCH ×2 (10:00→11:44)
[2020-03-15] MEDS ORDERED: CARVEDILOL 3.125 MG TAB PO SCH (10:00)
[2020-03-15] MEDS ORDERED: NIFE90TA49 PO (10:48)
[2020-03-15] MEDS ORDERED: ASPI-498 PO (10:48)
[2020-03-15] MEDS ORDERED: MULT-647 PO (10:48)
[2020-03-15] MEDS: CLOPIDOGREL BISULFATE 75 MG TAB PO SCH (11:44)
[2020-03-15] MEDS ORDERED: cloNIDine HCL 0.1 MG TAB PO ONE (11:45)
[2020-03-15] MEDS ORDERED: PANTOPRAZOLE 40 MG TAB PO ONE (11:45)
[2020-03-15] MEDS ORDERED: CARVEDILOL 12.5 MG TAB PO ONE (11:45)
[2020-03-15] MEDS: SEVELAMER 800 MG TAB PO SCH ×2 (11:48→18:05)
[2020-03-15] MEDS: cloNIDine HCL 0.1 MG TAB PO SCH ×2 (15:24→21:56)
[2020-03-15 16:00] VITALS: BP 186/70
[2020-03-15] MEDS ORDERED: hydrALAZINE HCL 20 MG/ML VL IV PRN (18:15)
[2020-03-15] MEDS ORDERED: NIFEdipine ER 30 MG TAB PO ONE (18:15)
[2020-03-15 20:00] VITALS: BP 163/66
[2020-03-15] MEDS: ATORVASTATIN 20 MG TAB PO SCH (21:57)
[2020-03-15] MEDS: CARVEDILOL 12.5 MG TAB PO SCH (21:57)
[2020-03-15 22:00] VITALS: BP 163/66
[2020-03-16] MEDS: ENOXAPARIN SOD 60 MG/0.6 ML SYRINGE SC SCH (01:00)
[2020-03-16 05:50] VITALS: BP 120/58
[2020-03-16] MEDS: cloNIDine HCL 0.1 MG TAB PO SCH ×3 (06:01→22:00)
[2020-03-16] MEDS ORDERED: SODIUM CHL 0.9% 1000 ML BAG XX ONE (07:00)
[2020-03-16 08:00] VITALS: BP 137/61
[2020-03-16 08:00] LABS: Basophils # (auto) 0.1 10 ^3/uL (0-0.2); Basophils % (auto) 1.2 % (0.0-2.0); Eosinophils # (auto) 0.2 10 ^3/uL (0-0.8); Eosinophils % (auto) 4.5 % (0.0-7.0); Hematocrit 32.6 % (41.0-53.0); Hemoglobin 10.9 g/dL (13.5-17.5); Lymphocytes # (auto) 0.9 10 ^3/uL (0.4-5.4); Lymphocytes % (auto) 18.6 % (10.0-50.0); Mean Corpuscular Hgb Conc. 33.6 g/dL (32.0-36.0); Mean Corpuscular Volume 89.4 fL (80.0-100.0); Monocytes # (auto) 0.7 10 ^3/uL (0-1.3); Monocytes % (auto) 13.4 % (0.0-12.0); Neutrophils # (auto) 3.1 10 ^3/uL (1.6-8.6); Neutrophils % (auto) 62.3 % (37.0-80.0); Platelet Count (auto) 95 10^3/uL (140-450); Red Blood Cells 3.64 10^6/uL (4.5-5.90); Red Cell Distribution Width 14.3 % (11.8-14.3)
[2020-03-16 08:30] VITALS: BP 137/61
[2020-03-16] MEDS: SEVELAMER 800 MG TAB PO SCH ×3 (08:30→17:53)
[2020-03-16 08:32] LABS: Calcium 7.8 mg/dL (8.5-10.1); Potassium 5.1 mmol/L (3.5-5.1)
[2020-03-16 08:34] LABS: BUN/Creatinine Ratio 4.4
[2020-03-16] MEDS: ASPirin 81 mg TAB PO SCH (09:19)
[2020-03-16] MEDS: CARVEDILOL 12.5 MG TAB PO SCH ×2 (09:19→22:29)
[2020-03-16] MEDS: CLOPIDOGREL BISULFATE 75 MG TAB PO SCH (09:19)
[2020-03-16] MEDS: PANTOPRAZOLE 40 MG TAB PO SCH (09:19)
[2020-03-16 09:20] VITALS: BP 137/61
[2020-03-16 13:00] VITALS: BP 158/68
[2020-03-16 17:43] VITALS: BP 124/57
[2020-03-16] MEDS: ATORVASTATIN 20 MG TAB PO SCH (22:27)
[2020-03-17] VITALS (12 sets, daily range): BP systolic 126–161; BP diastolic 57–70
[2020-03-17] MEDS: ENOXAPARIN SOD 60 MG/0.6 ML SYRINGE SC SCH (00:23)
[2020-03-17] MEDS: cloNIDine HCL 0.1 MG TAB PO SCH ×3 (05:32→20:41)
[2020-03-17] MEDS: ASPirin 81 mg TAB PO SCH (08:56)
[2020-03-17] MEDS: CLOPIDOGREL BISULFATE 75 MG TAB PO SCH (08:56)
[2020-03-17] MEDS: SEVELAMER 800 MG TAB PO SCH ×3 (08:57→18:46)
[2020-03-17] MEDS: PANTOPRAZOLE 40 MG TAB PO SCH ×2 (08:57→13:00)
[2020-03-17] MEDS: CARVEDILOL 12.5 MG TAB PO SCH ×3 (08:57→20:43)
[2020-03-17] MEDS ORDERED: ANGIOMAX 250 MG VIAL IV ONE (09:19)
[2020-03-17] MEDS ORDERED: fentaNYL CITRATE 100 MCG/2 ML VL ONE (09:19)
[2020-03-17] MEDS ORDERED: SODIUM CHL 0.9% 50 ML ONE (09:19)
[2020-03-17] MEDS ORDERED: MIDAZOLAM HCL 1MG/1ML-2 ML VIAL ONE (09:19)
[2020-03-17] MEDS ORDERED: IODIXANOL 320MG/ML 100ML BTL IV ONE ×2 (09:25→10:18)
[2020-03-17] MEDS ORDERED: LIDOCAINE 2%HCL (LOCAL ANESTH.) INJ 20ML MDV ONE (09:25)
[2020-03-17] MEDS ORDERED: hydrALAZINE HCL 20 MG/ML VL ONE (10:37)
[2020-03-17] MEDS ORDERED: NITROGLYCERIN 0.4MG/DOSE SPRAY 4.9GM ONE (10:40)
[2020-03-17] MEDS ORDERED: ASPirin 81 mg TAB ONE (10:43)
[2020-03-17] MEDS ORDERED: CLOPIDOGREL BISULFATE 75 MG TAB ONE (10:43)
[2020-03-17] MEDS: MORPHINE SULFATE 4 MG/ML SYR/VIAL IV PRN ×2 (13:01→18:55)
[2020-03-17] MEDS ORDERED: HYDROmorphone HCL 2 MG/ML VL IV PRN (20:00)
[2020-03-17] MEDS: ATORVASTATIN 20 MG TAB PO SCH (20:39)
[2020-03-18] MEDS: cloNIDine HCL 0.1 MG TAB PO PRN ×3 (00:12→16:12)
[2020-03-18 05:00] VITALS: BP 169/72
[2020-03-18] MEDS: cloNIDine HCL 0.1 MG TAB PO SCH ×2 (05:27→14:11)
[2020-03-18 06:25] LABS: Basophils # (auto) 0.1 10 ^3/uL (0-0.2); Basophils % (auto) 0.9 % (0.0-2.0); Eosinophils # (auto) 0.2 10 ^3/uL (0-0.8); Eosinophils % (auto) 2.9 % (0.0-7.0); Hematocrit 33.2 % (41.0-53.0); Hemoglobin 11.3 g/dL (13.5-17.5); Lymphocytes % (auto) 18.4 % (10.0-50.0); Mean Corpuscular Hemoglobin 30.3 pg (28.0-32.0); Mean Corpuscular Volume 89.2 fL (80.0-100.0); Monocytes # (auto) 0.8 10 ^3/uL (0-1.3); Monocytes % (auto) 15.1 % (0.0-12.0); Neutrophils # (auto) 3.5 10 ^3/uL (1.6-8.6); Neutrophils % (auto) 62.7 % (37.0-80.0); Platelet Count (auto) 91 10^3/uL (140-450); Red Blood Cells 3.72 10^6/uL (4.5-5.90); White Blood Cell 5.5 10^3/uL (4.4-10.8)
[2020-03-18 06:37] LABS: Calcium 8.3 mg/dL (8.5-10.1); Potassium 5.2 mmol/L (3.5-5.1)
[2020-03-18 06:40] LABS: BUN/Creatinine Ratio 3.8
[2020-03-18] MEDS ORDERED: SODIUM CHL 0.9% 1000 ML BAG XX ONE (07:00)
[2020-03-18] MEDS: SEVELAMER 800 MG TAB PO SCH ×3 (07:59→18:49)
[2020-03-18 08:00] VITALS: BP 153/68
[2020-03-18 08:57] VITALS: BP 153/68
[2020-03-18] MEDS: PANTOPRAZOLE 40 MG TAB PO SCH (10:43)
[2020-03-18] MEDS: CLOPIDOGREL BISULFATE 75 MG TAB PO SCH (10:44)
[2020-03-18] MEDS: ASPirin 81 mg TAB PO SCH (10:44)
[2020-03-18] MEDS: CARVEDILOL 12.5 MG TAB PO SCH (10:44)
[2020-03-18 12:55] VITALS: BP 151/66
[2020-03-18 15:25] VITALS: BP 159/68
[2020-03-18 16:38] VITALS: BP 184/71
== END 2020-03-18 19:37 | disposition home or self-care (01) | DRG 250 ==
LOC: EDUNIT# 21:54 → EDBD 21:54 → ER 21:56 → TELE 21:57 → TELE-EAST 03-15 08:22
PROVIDERS: ADMIT Hospitalist; ATTEND Internal Medicine
PROC: 5A1D70Z Performance of Urinary Filtration, Intermittent, Less than 6 Hours Per Day (ICD-10-PCS; 2020-03-16)
PROC: 4A023N7 Measurement of Cardiac Sampling and Pressure, Left Heart, Percutaneous Approach (ICD-10-PCS; principal; 2020-03-17)
PROC: 02C03ZZ Extirpation of Matter from Coronary Artery, One Artery, Percutaneous Approach (ICD-10-PCS; 2020-03-17)
PROC: 02713ZZ Dilation of Coronary Artery, Two Arteries, Percutaneous Approach (ICD-10-PCS; 2020-03-17)
PROC: B211YZZ Fluoroscopy of Multiple Coronary Arteries using Other Contrast (ICD-10-PCS; 2020-03-17)
PROC: B215YZZ Fluoroscopy of Left Heart using Other Contrast (ICD-10-PCS; 2020-03-17)
PROC: B41CYZZ Fluoroscopy of Pelvic Arteries using Other Contrast (ICD-10-PCS; 2020-03-17)
PROC: 5A1D70Z Performance of Urinary Filtration, Intermittent, Less than 6 Hours Per Day (ICD-10-PCS; 2020-03-18)
DX: I21.4 Non-ST elevation (NSTEMI) myocardial infarction (principal); N18.6 End stage renal disease; I50.31 Acute diastolic (congestive) heart failure; I13.2 Hypertensive heart and chronic kidney disease with heart failure and with stage 5 chronic kidney disease, or end stage renal disease; M10.9 Gout, unspecified; D63.1 Anemia in chronic kidney disease; Z20.822 Contact with and (suspected) exposure to COVID-19; E78.5 Hyperlipidemia, unspecified; I25.10 Atherosclerotic heart disease of native coronary artery without angina pectoris; Z79.02 Long term (current) use of antithrombotics/antiplatelets; Z79.82 Long term (current) use of aspirin; Z95.5 Presence of coronary angioplasty implant and graft; I25.2 Old myocardial infarction; Z82.0 Family history of epilepsy and other diseases of the nervous system; Z82.3 Family history of stroke; Z99.2 Dependence on renal dialysis; Z82.49 Family history of ischemic heart disease and other diseases of the circulatory system; Z86.73 Personal history of transient ischemic attack (TIA), and cerebral infarction without residual deficits
CPT/HCPCS: 36415; 71045; 80048; 80053; 80061; 83735; 83880; 84443; 84484; 85025; 85379; 85610; 85730; 86850; 86900; 86901; 87040; 87081; 87426; 90935; 93005; 93306; 96360; 99152; 99153; G0378; J2250; Q9967

== ENCOUNTER 2020-03-20 17:26 | Emergency (ER) | payer MEDICARE, MEDICAID ==
[~2020-03-20] VITALS: Ht 175.3 cm; Wt 59.0 kg
[~2020-03-20 17:26] MED LIST changes: -ASPI-498 OR; +ASPI-498 PO; -B-CO-5 OR; -METO5TAB56 PO; +MULT-647 PO; -NIFE1TAB30 PO; +NIFE90TA49 PO; -SODI650T PO
[2020-03-20 17:42] VITALS: BP 129/76
[2020-03-20 18:20] LABS: Basophils # (auto) 0.1 10 ^3/uL (0-0.2); Basophils % (auto) 0.9 % (0.0-2.0); Eosinophils # (auto) 0.2 10 ^3/uL (0-0.8); Eosinophils % (auto) 3.9 % (0.0-7.0); Hematocrit 35.1 % (41.0-53.0); Hemoglobin 11.6 g/dL (13.5-17.5); Lymphocytes # (auto) 1.1 10 ^3/uL (0.4-5.4); Lymphocytes % (auto) 16.8 % (10.0-50.0); Mean Corpuscular Hemoglobin 29.7 pg (28.0-32.0); Mean Corpuscular Hgb Conc. 33.1 g/dL (32.0-36.0); Mean Corpuscular Volume 89.8 fL (80.0-100.0); Monocytes % (auto) 16.3 % (0.0-12.0); Neutrophils # (auto) 3.9 10 ^3/uL (1.6-8.6); Neutrophils % (auto) 62.1 % (37.0-80.0); Red Blood Cells 3.91 10^6/uL (4.5-5.90); Red Cell Distribution Width 14.1 % (11.8-14.3); White Blood Cell 6.3 10^3/uL (4.4-10.8)
[2020-03-20 18:55] LABS: Albumin 3.5 g/dL (3.4-5.0); Calcium 8.5 mg/dL (8.5-10.1); Potassium 4.8 mmol/L (3.5-5.1)
[2020-03-20 18:57] LABS: BUN/Creatinine Ratio 3.7
[2020-03-20 19:02] LABS: Bilirubin, Total 0.3 mg/dL (0.2-1.0); Total Protein 8.2 g/dL (6.4-8.2)
[2020-03-20 19:26] LABS: INR 1.08 (0.9-1.15)
== END 2020-03-20 20:51 | disposition left against medical advice (07) ==
LOC: EDBD 17:26 → EDUNIT# 17:26 → ER 17:30
DX: R42 Dizziness and giddiness (principal); R53.1 Weakness; I13.2 Hypertensive heart and chronic kidney disease with heart failure and with stage 5 chronic kidney disease, or end stage renal disease; I50.9 Heart failure, unspecified; N18.6 End stage renal disease; E78.5 Hyperlipidemia, unspecified; Z87.891 Personal history of nicotine dependence; Z79.899 Other long term (current) drug therapy
CPT/HCPCS: 36415; 71045; 80053; 83880; 84443; 84484; 85025; 85379; 85610; 85730; 93005

== ENCOUNTER 2020-03-22 02:46 | Inpatient (IN) | payer MEDICARE, MEDICAID ==
[~2020-03-22] VITALS: Ht 172.7 cm; Wt 148.9 kg
[2020-03-22] MEDS ORDERED: PROMETHAZINE HCL 25 MG/ML 1ML IV ONE (03:15)
[2020-03-22 03:56] LABS: Basophils # (auto) 0 10 ^3/uL (0-0.2); Basophils % (auto) 0.4 % (0.0-2.0); Eosinophils # (auto) 0.2 10 ^3/uL (0-0.8); Eosinophils % (auto) 2.5 % (0.0-7.0); Hematocrit 37.2 % (41.0-53.0); Hemoglobin 12.5 g/dL (13.5-17.5); Lymphocytes # (auto) 0.6 10 ^3/uL (0.4-5.4); Lymphocytes % (auto) 6.4 % (10.0-50.0); Mean Corpuscular Hemoglobin 29.9 pg (28.0-32.0); Mean Corpuscular Hgb Conc. 33.6 g/dL (32.0-36.0); Mean Corpuscular Volume 89.1 fL (80.0-100.0); Monocytes # (auto) 1.4 10 ^3/uL (0-1.3); Monocytes % (auto) 13.9 % (0.0-12.0); Neutrophils # (auto) 7.5 10 ^3/uL (1.6-8.6); Neutrophils % (auto) 76.8 % (37.0-80.0); Platelet Count (auto) 120 10^3/uL (140-450); Red Blood Cells 4.17 10^6/uL (4.5-5.90); Red Cell Distribution Width 14.2 % (11.8-14.3); White Blood Cell 9.7 10^3/uL (4.4-10.8)
[2020-03-22 04:08] LABS: INR 1.08 (0.9-1.15)
[2020-03-22 04:17] LABS: Albumin 3.9 g/dL (3.4-5.0); Calcium 8.9 mg/dL (8.5-10.1)
[2020-03-22 04:18] LABS: Lactic Acid w/Reflex 2.1 mmol/L (0.4-2.0)
[2020-03-22 04:19] LABS: BUN/Creatinine Ratio 3.7
[2020-03-22 04:21] LABS: Potassium 6.1 mmol/L (3.5-5.1)
[2020-03-22 04:24] LABS: Bilirubin, Total 0.4 mg/dL (0.2-1.0); Total Protein 9.1 g/dL (6.4-8.2)
[2020-03-22] MEDS ORDERED: ALBUTEROL SULF 2.5 MG/0.5ML(0.5%) NEB SOLN NEB ONE ×2 (05:30→11:45)
[2020-03-22] MEDS ORDERED: VANCOMYCIN 1GM/250ML 250 ML IV ONE (05:30)
[2020-03-22] MEDS ORDERED: InsuLIN REG 1unit/0.01ml Soln (100units/ml) IV ONE ×2 (05:30→11:45)
[2020-03-22] MEDS ORDERED: PIPERACILLIN-TAZOB 3.375GM 100 ML IV ONE (05:30)
[2020-03-22] MEDS ORDERED: SODIUM BICARBONATE 8.4% INJ 50ML SYRINGE IV ONE (05:30)
[2020-03-22] MEDS ORDERED: DEXTROSE (50%) 50ML SYRG IV ONE ×2 (05:30→11:45)
[2020-03-22] MEDS ORDERED: TEMAZEPAM 15 MG CAP PO PRN (07:30)
[2020-03-22] MEDS ORDERED: ACETAMINOPHEN 325 MG TAB PO PRN (07:30)
[2020-03-22] MEDS ORDERED: NITROGLYCERIN 0.4 MG SL TAB SL PRN (07:30)
[2020-03-22] MEDS: SEVELAMER 800 MG TAB PO SCH ×3 (08:00→18:42)
[2020-03-22] MEDS ORDERED: cefTRIAXone 1GM/50ML D5W 50 ML IV SCH (09:00)
[2020-03-22] MEDS: MORPHINE SULF INJ 2 MG/ML SYRINGE 1ML IV PRN ×2 (09:31→14:29)
[2020-03-22] MEDS: ONDANSETRON HCL 4 MG/2 ML VIAL IV PRN (09:32)
[2020-03-22] MEDS: CARVEDILOL 12.5 MG TAB PO SCH ×3 (10:00→22:00)
[2020-03-22] MEDS: PANTOPRAZOLE 40 MG TAB PO SCH (10:00)
[2020-03-22] MEDS: NIFEdipine ER 30 MG TAB PO SCH (10:00)
[2020-03-22] MEDS: CLOPIDOGREL BISULFATE 75 MG TAB PO SCH (10:00)
[2020-03-22] MEDS: ASPirin 81 mg TAB PO SCH (10:00)
[2020-03-22 10:53] LABS: Potassium 7.1 mmol/L (3.5-5.1)
[2020-03-22] MEDS ORDERED: SODIUM CHL 0.9% 1000 ML BAG XX ONE (11:30)
[2020-03-22] MEDS ORDERED: SODIUM ZIRCONIUM CYCL 10 GM PAK PO ONE (11:45)
[2020-03-22] MEDS ORDERED: CALCIUM GLUC 4.65meq/50ml D5AE 50 ML IV ONE (12:45)
[2020-03-22] MEDS ORDERED: CARV12.544 PO (13:13)
[2020-03-22] MEDS ORDERED: MULT-647 PO (13:22)
[2020-03-22] MEDS ORDERED: metroNIDAZOLE 500MG/100ML 100 ML IV SCH (14:00)
[2020-03-22] MEDS ORDERED: EPOETIN ALFA 10,000 UNIT/1 ML VIAL SC ONE (21:00)
[2020-03-22 22:00] VITALS: BP 129/65
[2020-03-22] MEDS: ATORVASTATIN 20 MG TAB PO SCH (22:16)
[2020-03-23] MEDS ORDERED: HYDROmorphone HCL 2 MG/ML VL IV PRN ×2 (01:45→10:15)
[2020-03-23 05:00] VITALS: BP 139/72
[2020-03-23 06:24] LABS: Basophils # (auto) 0 10 ^3/uL (0-0.2); Basophils % (auto) 0.5 % (0.0-2.0); Eosinophils # (auto) 0.2 10 ^3/uL (0-0.8); Eosinophils % (auto) 2.9 % (0.0-7.0); Hematocrit 34.7 % (41.0-53.0); Lymphocytes % (auto) 11.7 % (10.0-50.0); Mean Corpuscular Hemoglobin 30.3 pg (28.0-32.0); Mean Corpuscular Hgb Conc. 34.5 g/dL (32.0-36.0); Mean Corpuscular Volume 87.9 fL (80.0-100.0); Monocytes # (auto) 1.4 10 ^3/uL (0-1.3); Monocytes % (auto) 16.6 % (0.0-12.0); Neutrophils # (auto) 5.7 10 ^3/uL (1.6-8.6); Neutrophils % (auto) 68.3 % (37.0-80.0); Nucleated Red Blood Cells % 0.1 %; Platelet Count (auto) 120 10^3/uL (140-450); Red Blood Cells 3.95 10^6/uL (4.5-5.90); Red Cell Distribution Width 14.3 % (11.8-14.3); White Blood Cell 8.3 10^3/uL (4.4-10.8)
[2020-03-23 06:36] LABS: Albumin 3.5 g/dL (3.4-5.0); Calcium 8.4 mg/dL (8.5-10.1); Potassium 4.9 mmol/L (3.5-5.1)
[2020-03-23 06:39] LABS: BUN/Creatinine Ratio 3.4; Bilirubin, Total 0.4 mg/dL (0.2-1.0)
[2020-03-23] MEDS: SEVELAMER 800 MG TAB PO SCH ×3 (08:48→18:21)
[2020-03-23] MEDS: PANTOPRAZOLE 40 MG TAB PO SCH (08:57)
[2020-03-23] MEDS: CARVEDILOL 12.5 MG TAB PO SCH ×2 (08:57→21:57)
[2020-03-23] MEDS: NIFEdipine ER 30 MG TAB PO SCH (08:58)
[2020-03-23] MEDS: CLOPIDOGREL BISULFATE 75 MG TAB PO SCH (08:58)
[2020-03-23 09:00] VITALS: BP 146/68
[2020-03-23] MEDS: ASPirin 81 mg TAB PO SCH (09:01)
[2020-03-23] MEDS ORDERED: traMADol HCL 50 MG TAB PO PRN (10:15)
[2020-03-23 13:00] VITALS: BP 143/70
[2020-03-23] MEDS: cloNIDine HCL 0.1 MG TAB PO SCH ×2 (15:16→21:56)
[2020-03-23 17:00] VITALS: BP 136/65
[2020-03-23] MEDS: ATORVASTATIN 20 MG TAB PO SCH (21:56)
[2020-03-23 22:00] VITALS: BP 157/69
[2020-03-24 05:00] VITALS: BP 161/67
[2020-03-24 05:27] VITALS: BP 143/63
[2020-03-24 06:57] LABS: Hematocrit 32.1 % (41.0-53.0)
[2020-03-24] MEDS ORDERED: SODIUM CHL 0.9% 1000 ML BAG XX ONE ×2 (07:00)
[2020-03-24] MEDS: cloNIDine HCL 0.1 MG TAB PO SCH ×3 (07:13→23:10)
[2020-03-24 07:18] LABS: Calcium 8.3 mg/dL (8.5-10.1)
[2020-03-24 07:20] LABS: % Iron Saturation 42.3 % (20-55)
[2020-03-24 07:21] LABS: BUN/Creatinine Ratio 3.5
[2020-03-24 07:43] LABS: Potassium 5.6 mmol/L (3.5-5.1)
[2020-03-24] MEDS: SEVELAMER 800 MG TAB PO SCH ×3 (08:00→18:00)
[2020-03-24 09:00] VITALS: BP 142/74
[2020-03-24] MEDS ORDERED: SODIUM CHL 0.9% 50 ML ONE (09:06)
[2020-03-24] MEDS ORDERED: fentaNYL CITRATE 100 MCG/2 ML VL ONE (09:06)
[2020-03-24] MEDS ORDERED: ANGIOMAX 250 MG VIAL IV ONE (09:06)
[2020-03-24] MEDS ORDERED: MIDAZOLAM HCL 1MG/1ML-2 ML VIAL ONE (09:06)
[2020-03-24] MEDS ORDERED: IODIXANOL 320MG/ML 100ML BTL IV ONE (09:07)
[2020-03-24] MEDS ORDERED: LIDOCAINE 2%HCL (LOCAL ANESTH.) INJ 20ML MDV ONE (09:07)
[2020-03-24] MEDS ORDERED: DEXTROSE (50%) 50ML SYRG IV ONE (09:15)
[2020-03-24] MEDS ORDERED: ALBUTEROL SULF 2.5 MG/0.5ML(0.5%) NEB SOLN NEB ONE (09:15)
[2020-03-24] MEDS ORDERED: SODIUM ZIRCONIUM CYCL 10 GM PAK PO ONE (09:15)
[2020-03-24] MEDS ORDERED: InsuLIN REG 1unit/0.01ml Soln (100units/ml) IV ONE (09:15)
[2020-03-24] MEDS ORDERED: diphenhdrAMINE HCL 50 MG/1 ML VL ONE (09:22)
[2020-03-24] MEDS ORDERED: SODIUM CHLORIDE 0.9 % NEB SOLN 3ML NEB ONE (09:27)
[2020-03-24] MEDS: CARVEDILOL 12.5 MG TAB PO SCH ×2 (10:00→23:10)
[2020-03-24] MEDS: ASPirin 81 mg TAB PO SCH (10:30)
[2020-03-24] MEDS: CLOPIDOGREL BISULFATE 75 MG TAB PO SCH (10:30)
[2020-03-24] MEDS ORDERED: ASPirin 81 mg TAB ONE (10:33)
[2020-03-24] MEDS ORDERED: CLOPIDOGREL BISULFATE 75 MG TAB ONE (10:33)
[2020-03-24] MEDS ORDERED: LABETALOL HCL 5 MG/ML ML 20ML VIAL IV ONE (10:34)
[2020-03-24] MEDS ORDERED: hydrALAZINE HCL 20 MG/ML VL ONE (10:44)
[2020-03-24] MEDS: PANTOPRAZOLE 40 MG TAB PO SCH (13:17)
[2020-03-24] MEDS: ONDANSETRON HCL 4 MG/2 ML VIAL IV PRN (16:40)
[2020-03-24 17:00] VITALS: BP 98/50
[2020-03-24 17:29] LABS: Anion Gap 13 (5-15); BUN/Creatinine Ratio 3.2; Blood Urea Nitrogen 34 mg/dL (7-18); Calcium 8.9 mg/dL (8.5-10.1); Carbon Dioxide 25 mmol/L (21-32); Chloride 96 mmol/L (98-107); GFR African American 6 mL/min; GFR Non-African American 5 mL/min; Glucose 86 mg/dL (74-106); Potassium 4.4 mmol/L (3.5-5.1); Sodium 134 mmol/L (136-145)
[2020-03-24 19:40] VITALS: BP 132/60
[2020-03-24] MEDS: ATORVASTATIN 20 MG TAB PO SCH (21:31)
[2020-03-24 22:00] VITALS: BP 137/69
[2020-03-25 05:00] VITALS: BP 152/69
[2020-03-25] MEDS: cloNIDine HCL 0.1 MG TAB PO SCH ×2 (05:39→14:00)
[2020-03-25 07:04] LABS: BUN/Creatinine Ratio 3.2; Calcium 8.3 mg/dL (8.5-10.1); Potassium 5.4 mmol/L (3.5-5.1)
[2020-03-25] MEDS: SEVELAMER 800 MG TAB PO SCH ×2 (07:58→12:04)
[2020-03-25 08:30] VITALS: BP 165/67
[2020-03-25] MEDS: CARVEDILOL 12.5 MG TAB PO SCH (10:12)
[2020-03-25] MEDS: CLOPIDOGREL BISULFATE 75 MG TAB PO SCH (10:12)
[2020-03-25] MEDS: PANTOPRAZOLE 40 MG TAB PO SCH (10:12)
[2020-03-25] MEDS: ASPirin 81 mg TAB PO SCH (10:12)
[2020-03-25] MEDS: SODIUM ZIRCONIUM CYCL 10 GM PAK PO SCH ×2 (12:51→16:33)
[2020-03-25 13:30] VITALS: BP 116/60
[2020-03-25 16:05] VITALS: BP 116/60
[2020-03-25 16:25] VITALS: BP 135/79
== END 2020-03-25 17:30 | disposition home or self-care (01) | DRG 246 ==
LOC: EDBD 02:46 → ER 02:51 → TELE 02:52 → TELE-CENTR 17:07
PROVIDERS: ADMIT Nurse Practitioner; ATTEND Internal Medicine
PROC: 5A1D70Z Performance of Urinary Filtration, Intermittent, Less than 6 Hours Per Day (ICD-10-PCS; 2020-03-22)
PROC: 027034Z Dilation of Coronary Artery, One Artery with Drug-eluting Intraluminal Device, Percutaneous Approach (ICD-10-PCS; principal; 2020-03-24)
PROC: 02703ZZ Dilation of Coronary Artery, One Artery, Percutaneous Approach (ICD-10-PCS; 2020-03-24)
PROC: B210YZZ Fluoroscopy of Single Coronary Artery using Other Contrast (ICD-10-PCS; 2020-03-24)
PROC: B241ZZ3 Ultrasonography of Multiple Coronary Arteries, Intravascular (ICD-10-PCS; 2020-03-24)
PROC: B41CYZZ Fluoroscopy of Pelvic Arteries using Other Contrast (ICD-10-PCS; 2020-03-24)
PROC: 5A1D70Z Performance of Urinary Filtration, Intermittent, Less than 6 Hours Per Day (ICD-10-PCS; 2020-03-24)
DX: T82.855A Stenosis of coronary artery stent, initial encounter (principal); I21.4 Non-ST elevation (NSTEMI) myocardial infarction; N18.6 End stage renal disease; K56.600 Partial intestinal obstruction, unspecified as to cause; I16.1 Hypertensive emergency; I13.2 Hypertensive heart and chronic kidney disease with heart failure and with stage 5 chronic kidney disease, or end stage renal disease; I50.32 Chronic diastolic (congestive) heart failure; Z20.822 Contact with and (suspected) exposure to COVID-19; K52.9 Noninfective gastroenteritis and colitis, unspecified; E87.5 Hyperkalemia; E78.5 Hyperlipidemia, unspecified; I25.10 Atherosclerotic heart disease of native coronary artery without angina pectoris; M10.9 Gout, unspecified; Y83.1 Surgical operation with implant of artificial internal device as the cause of abnormal reaction of the patient, or of later complication, without mention of misadventure at the time of the procedure; Z82.0 Family history of epilepsy and other diseases of the nervous system; Z82.49 Family history of ischemic heart disease and other diseases of the circulatory system; Z99.2 Dependence on renal dialysis; Z82.3 Family history of stroke; Z86.73 Personal history of transient ischemic attack (TIA), and cerebral infarction without residual deficits; Z98.61 Coronary angioplasty status; Y92.89 Other specified places as the place of occurrence of the external cause; Z91.15 Patient's noncompliance with renal dialysis; Z88.1 Allergy status to other antibiotic agents; Z88.8 Allergy status to other drugs, medicaments and biological substances
CPT/HCPCS: 36415; 71045; 71250; 74176; 80048; 80053; 82728; 82962; 83540; 83550; 83605; 83880; 84132; 84443; 84484; 85014; 85018; 85025; 85379; 85610; 85730; 86850; 86900; 86901; 87040; 87081; 87426; 90935; 93005; 94640; 94644; 96365; 96366; 96368; 96375; 96376; 99152; 99153; C1874; G0378; J0610; J0696; J1642; J1815; J2250; J2405; J2543; Q9967

== ENCOUNTER 2022-10-16 15:10 | Inpatient (IN) | payer MEDICARE, MEDICAID ==
[~2022-10-16] VITALS: Ht 175.3 cm; Wt 65.5 kg
[~2022-10-16 15:10] MED LIST changes: +CARV12.544 PO; -CARV6.25 PO; -NIFE90TA49 PO; +NIFE90TA75 PO; -SIMV-8 PO; +SIMV20TA20 PO
[2022-10-16] MEDS ORDERED: cloNIDine HCL 0.1 MG TAB PO ONE (19:00)
[2022-10-16 19:37] LABS: Basophils # (auto) 0.1 10 ^3/uL (0-0.2); Basophils % (auto) 1.4 % (0.0-2.0); Eosinophils # (auto) 0.1 10 ^3/uL (0-0.8); Eosinophils % (auto) 2.4 % (0.0-7.0); Hematocrit 36.4 % (41.0-53.0); Hemoglobin 11.7 g/dL (13.5-17.5); Lymphocytes # (auto) 1.4 10 ^3/uL (0.4-5.4); Lymphocytes % (auto) 27.8 % (10.0-50.0); Mean Corpuscular Hemoglobin 29.7 pg (28.0-32.0); Mean Corpuscular Hgb Conc. 32.2 g/dL (32.0-36.0); Mean Corpuscular Volume 92.3 fL (80.0-100.0); Monocytes # (auto) 0.6 10 ^3/uL (0-1.3); Monocytes % (auto) 12.2 % (0.0-12.0); Neutrophils # (auto) 2.9 10 ^3/uL (1.6-8.6); Neutrophils % (auto) 56.2 % (37.0-80.0); Nucleated Red Blood Cells % 0.1 %; Red Blood Cells 3.95 10^6/uL (4.5-5.90); Red Cell Distribution Width 18.4 % (11.8-14.3); White Blood Cell 5.1 10^3/uL (4.4-10.8)
[2022-10-16 19:51] LABS: Alanine Aminotransferase 13 U/L (7-40); Chloride 100 mmol/L (98-107); Potassium 4.2 mmol/L (3.5-5.1); Sodium 138 mmol/L (136-145)
[2022-10-16 19:52] LABS: Bilirubin, Total 0.6 mg/dL (0.2-1.0); Total Protein 8.6 g/dL (5.7-8.2)
[2022-10-16 19:54] VITALS: PULSE 70; RESP 20; O2SAT 97
[2022-10-16 19:54] LABS: Anion Gap 8.9 (5-15); Calcium 9.2 mg/dL (8.7-10.4); Carbon Dioxide 29.1 mmol/L (20-30)
[2022-10-16 19:59] LABS: BUN/Creatinine Ratio 3.7 (10.0-20.0); Blood Urea Nitrogen 19 mg/dL (9-23); Glucose 98 mg/dL (74-106); Lipase 64 U/L (12-53)
[2022-10-16 20:00] LABS: Alkaline Phosphatase 116 U/L (46-116)
[2022-10-16 20:01] LABS: Aspartate Aminotransferase 27 U/L (13-40)
[2022-10-16 20:11] LABS: INR 1.11 (0.9-1.15); Partial Thromboplastin Time 32.7 SEC (24.5-34.5); Prothrombin Time 11.6 sec (9.3-11.8)
[2022-10-16 21:10] LABS: COVID19 ANTIGEN SOFIA FIA NEGATIVE (NEGATIVE)
[2022-10-16] MEDS ORDERED: NITROGLYCERIN 0.4 MG SL TAB SL PRN (22:45)
[2022-10-16] MEDS ORDERED: MORPHINE SULFATE INJ 2 MG/ml SYRG IV PRN (22:45)
[2022-10-16] MEDS ORDERED: CLON0.2T PO (22:45)
[2022-10-17] MEDS ORDERED: hydrALAZINE HCL 20 MG/ML VL IV ONE ×2 (03:45→19:15)
[2022-10-17] MEDS ORDERED: cloNIDine HCL 0.1 MG TAB PO ONE ×2 (04:45→06:00)
[2022-10-17] MEDS ORDERED: LORazepam 2MG/ML-1ML VIAL IV ONE (07:15)
[2022-10-17] MEDS: SEVELAMER 800 MG TAB PO SCH ×3 (07:58→18:25)
[2022-10-17] MEDS: ASPirin-EC 81 mg tab PO SCH (07:59)
[2022-10-17] MEDS: NIFEdipine ER 30 MG TAB PO SCH (07:59)
[2022-10-17] MEDS: MULTIPLE VITAMINS W/ MINERALS TAB PO SCH (07:59)
[2022-10-17] MEDS: DOCUSATE SOD 100 MG CAP PO SCH (07:59)
[2022-10-17] MEDS ORDERED: PATIENTS OWN MEDICATION (Sevelamer Carbonate (Renvela) 3 TAB) PO SCH (08:00)
[2022-10-17] MEDS: PANTOPRAZOLE 40 MG TAB PO SCH (08:00)
[2022-10-17] MEDS: CARVEDILOL 12.5 MG TAB PO SCH ×2 (08:00→21:10)
[2022-10-17] MEDS: cloNIDine HCL 0.1 MG TAB PO SCH ×2 (08:04→21:08)
[2022-10-17] MEDS ORDERED: PATIENTS OWN MEDICATION (Clonidine Hydrochloride (Clonidine Hcl) 1 TAB) PO SCH (10:00)
[2022-10-17] MEDS ORDERED: PATIENTS OWN MEDICATION (Nifedipine (Nifedipine Er) 90 MG) PO SCH (10:00)
[2022-10-17 10:34] LABS: Basophils # (auto) 0 10 ^3/uL (0-0.2); Basophils % (auto) 0.9 % (0.0-2.0); Eosinophils # (auto) 0 10 ^3/uL (0-0.8); Eosinophils % (auto) 1.1 % (0.0-7.0); Hematocrit 31.6 % (41.0-53.0); Hemoglobin 10.2 g/dL (13.5-17.5); Lymphocytes # (auto) 1.3 10 ^3/uL (0.4-5.4); Mean Corpuscular Hgb Conc. 32.3 g/dL (32.0-36.0); Mean Corpuscular Volume 92.9 fL (80.0-100.0); Monocytes # (auto) 0.6 10 ^3/uL (0-1.3); Monocytes % (auto) 12.9 % (0.0-12.0); Neutrophils # (auto) 2.5 10 ^3/uL (1.6-8.6); Neutrophils % (auto) 56.1 % (37.0-80.0); Nucleated Red Blood Cells % 0.1 %; White Blood Cell 4.5 10^3/uL (4.4-10.8)
[2022-10-17 11:06] LABS: Alanine Aminotransferase 12 U/L (7-40); Albumin 3.5 g/dL (3.2-4.8); Alkaline Phosphatase 71 U/L (46-116); Aspartate Aminotransferase 26 U/L (13-40); BUN/Creatinine Ratio 3.8 (10.0-20.0); Bilirubin, Total 0.5 mg/dL (0.2-1.0); Blood Urea Nitrogen 25 mg/dL (9-23); Chloride 100 mmol/L (98-107); Glucose 195 mg/dL (74-106); Potassium 4.4 mmol/L (3.5-5.1); Sodium 137 mmol/L (136-145); Total Protein 7.6 g/dL (5.7-8.2)
[2022-10-17] MEDS: hydrALAZINE HCL 25 MG TAB PO PRN (16:26)
[2022-10-17] MEDS ORDERED: amLODIPine BESYLATE 5 MG TAB PO ONE (17:00)
[2022-10-17 17:45] VITALS: BP 197/82; PULSE 67; PULSE 68; RESP 18; TEMP 97.6; O2SAT 98
[2022-10-17 18:01] VITALS: PULSE 68; RESP 18; O2SAT 95
[2022-10-17 20:00] VITALS: PULSE 77; RESP 18; O2SAT 100
[2022-10-17 22:00] VITALS: BP 164/68; PULSE 80; RESP 19; TEMP 98.1; O2SAT 100
[2022-10-18] VITALS (7 sets, daily range): BP systolic 160–195; BP diastolic 70–89; PULSE 64–72; RESP 16–20; TEMP 96.8–98; O2SAT 97–100
[2022-10-18 05:12] LABS: Basophils # (auto) 0.1 10 ^3/uL (0-0.2); Basophils % (auto) 1.1 % (0.0-2.0); Eosinophils # (auto) 0.1 10 ^3/uL (0-0.8); Eosinophils % (auto) 2.3 % (0.0-7.0); Hematocrit 31.6 % (41.0-53.0); Hemoglobin 10.3 g/dL (13.5-17.5); Lymphocytes # (auto) 1.9 10 ^3/uL (0.4-5.4); Lymphocytes % (auto) 30.4 % (10.0-50.0); Mean Corpuscular Hemoglobin 29.9 pg (28.0-32.0); Mean Corpuscular Hgb Conc. 32.6 g/dL (32.0-36.0); Mean Corpuscular Volume 91.5 fL (80.0-100.0); Monocytes # (auto) 0.8 10 ^3/uL (0-1.3); Monocytes % (auto) 12.9 % (0.0-12.0); Neutrophils # (auto) 3.4 10 ^3/uL (1.6-8.6); Neutrophils % (auto) 53.3 % (37.0-80.0); Red Blood Cells 3.46 10^6/uL (4.5-5.90); Red Cell Distribution Width 17.9 % (11.8-14.3); White Blood Cell 6.3 10^3/uL (4.4-10.8)
[2022-10-18 05:46] LABS: Anion Gap 8.9 (5-15); Carbon Dioxide 29.1 mmol/L (20-30); Chloride 99 mmol/L (98-107); Potassium 4.1 mmol/L (3.5-5.1); Sodium 137 mmol/L (136-145)
[2022-10-18 05:47] LABS: Calcium 9.2 mg/dL (8.7-10.4)
[2022-10-18 05:52] LABS: BUN/Creatinine Ratio 4.2 (10.0-20.0); Blood Urea Nitrogen 34 mg/dL (9-23); Glucose 85 mg/dL (74-106)
[2022-10-18] MEDS ORDERED: ceFAZolin 1GM/50ML 100 ML IV ONE (07:08)
[2022-10-18] MEDS ORDERED: LIDOCAINE 1%-Mpf/Epinephrine 1:200,000 30ml VIAL ONE (07:16)
[2022-10-18] MEDS ORDERED: BUPIVACAINE 0.25% INJ 50ML VIAL ONE (07:16)
[2022-10-18] MEDS ORDERED: fentaNYL CITRATE 100 MCG/2 ML VL ONE (07:45)
[2022-10-18] MEDS ORDERED: MEPERIDINE HCL (25 MG/ML) 1ML VIAL ONE (07:45)
[2022-10-18] MEDS ORDERED: MIDAZOLAM HCL 2MG/2ML 2ml VIAL (1mg/ml) ONE (07:45)
[2022-10-18] MEDS: SEVELAMER 800 MG TAB PO SCH ×3 (08:00→17:17)
[2022-10-18] MEDS ORDERED: LIDOCAINE 1% HCL (LOCAL ANESTH.) INJ 20ML MDV ONE (08:07)
[2022-10-18 08:50] LABS: Albumin 3.5 g/dL (3.2-4.8); Bilirubin, Direct 0.3 mg/dL (<0.3); Bilirubin, Total 0.5 mg/dL (0.2-1.0); Total Protein 7.7 g/dL (5.7-8.2)
[2022-10-18] MEDS ORDERED: ONDANSETRON HCL 4 MG/2 ML VIAL ONE (08:50)
[2022-10-18] MEDS ORDERED: PROPOFOL 10 MG/ML 20 ML IV ONE (08:50)
[2022-10-18] MEDS ORDERED: DexAMETHasone SOD PHOS 10MG/1ML VIAL INJ ONE (08:50)
[2022-10-18] MEDS ORDERED: SODIUM CHL 0.9% 1000 ML BAG XX ONE (09:00)
[2022-10-18] MEDS ORDERED: ceFAZolin 1GM VL ONE (09:06)
[2022-10-18] MEDS ORDERED: GELATIN 1 SPONGE SIZE 50 TOP ONE (09:34)
[2022-10-18] MEDS ORDERED: THROMBIN (BOVINE) 5000 UNIT SOL VIAL ONE (09:35)
[2022-10-18] MEDS ORDERED: ONDANSETRON HCL 4 MG/2 ML VIAL IV PRN (10:30)
[2022-10-18] MEDS ORDERED: MIDAZOLAM HCL 2MG/2ML 2ml VIAL (1mg/ml) IV PRN (10:30)
[2022-10-18] MEDS ORDERED: fentaNYL CITRATE 100 MCG/2 ML VL IV PRN (10:30)
[2022-10-18] MEDS ORDERED: ePHEDrine SULFATE 50 MG/ML AMP IV PRN (10:30)
[2022-10-18] MEDS ORDERED: LABETALOL HCL 5 MG/ML 4ML SYRINGE IV PRN (10:30)
[2022-10-18] MEDS: cloNIDine HCL 0.1 MG TAB PO SCH ×2 (13:16→21:03)
[2022-10-18] MEDS: DOCUSATE SOD 100 MG CAP PO SCH (13:17)
[2022-10-18] MEDS: NIFEdipine ER 30 MG TAB PO SCH (13:17)
[2022-10-18] MEDS: amLODIPine BESYLATE 5 MG TAB PO SCH (13:18)
[2022-10-18] MEDS: ASPirin-EC 81 mg tab PO SCH (13:18)
[2022-10-18] MEDS: CARVEDILOL 12.5 MG TAB PO SCH ×2 (13:19→21:03)
[2022-10-18] MEDS: PANTOPRAZOLE 40 MG TAB PO SCH (13:19)
[2022-10-18] MEDS: MULTIPLE VITAMINS W/ MINERALS TAB PO SCH (13:19)
[2022-10-18] MEDS: ACETAMINOPHEN 325 MG TAB PO PRN ×2 (13:20→19:50)
[2022-10-18] MEDS ORDERED: ETOMIDATE (2MG/ML) 20ML VIAL IV ONE (14:32)
[2022-10-18] MEDS ORDERED: DexAMETHasone SOD PHOS 10MG/1ML VIAL INJ IV ONE (14:32)
[2022-10-18] MEDS ORDERED: VANCOMYCIN 1GM/250ML 250 ML IV ONE (18:15)
[2022-10-18] MEDS ORDERED: EPOETIN ALFA-EPBX 4,000 UNIT/ML VIAL SC ONE (21:00)
[2022-10-18] MEDS: HYDROcodone-ACET 5/325MG TAB PO PRN (21:33)
[2022-10-19] MEDS: HYDROcodone-ACET 5/325MG TAB PO PRN ×2 (03:39→12:54)
[2022-10-19 05:00] VITALS: BP 129/75; PULSE 67; RESP 22; TEMP 97.7; O2SAT 99
[2022-10-19 06:56] LABS: Basophils # (auto) 0 10 ^3/uL (0-0.2); Basophils % (auto) 0.7 % (0.0-2.0); Eosinophils # (auto) 0.1 10 ^3/uL (0-0.8); Eosinophils % (auto) 0.9 % (0.0-7.0); Hematocrit 28.6 % (41.0-53.0); Hemoglobin 9.6 g/dL (13.5-17.5); Lymphocytes # (auto) 1.8 10 ^3/uL (0.4-5.4); Lymphocytes % (auto) 27.1 % (10.0-50.0); Mean Corpuscular Hemoglobin 30.3 pg (28.0-32.0); Mean Corpuscular Hgb Conc. 33.7 g/dL (32.0-36.0); Mean Corpuscular Volume 90.1 fL (80.0-100.0); Monocytes # (auto) 0.7 10 ^3/uL (0-1.3); Monocytes % (auto) 10.4 % (0.0-12.0); Neutrophils % (auto) 60.9 % (37.0-80.0); Red Blood Cells 3.18 10^6/uL (4.5-5.90); Red Cell Distribution Width 17.9 % (11.8-14.3); White Blood Cell 6.5 10^3/uL (4.4-10.8)
[2022-10-19 07:59] LABS: Albumin 3.3 g/dL (3.2-4.8); Alkaline Phosphatase 59 U/L (46-116); Anion Gap 9 (5-15); Aspartate Aminotransferase 24 U/L (13-40); Bilirubin, Total 0.4 mg/dL (0.2-1.0); Blood Urea Nitrogen 35 mg/dL (9-23); Carbon Dioxide 27 mmol/L (20-30); Chloride 98 mmol/L (98-107); Glucose 80 mg/dL (74-106); Potassium 5.1 mmol/L (3.5-5.1); Sodium 134 mmol/L (136-145); Total Protein 7.2 g/dL (5.7-8.2)
[2022-10-19] MEDS: SEVELAMER 800 MG TAB PO SCH ×3 (08:00→17:36)
[2022-10-19 08:01] VITALS: PULSE 72; RESP 18; O2SAT 95
[2022-10-19 08:01] LABS: Alanine Aminotransferase < 9 U/L (7-40)
[2022-10-19 08:32] LABS: BUN/Creatinine Ratio 3.8 (10.0-20.0)
[2022-10-19 09:00] VITALS: BP 139/64; PULSE 66; RESP 16; TEMP 98.2; O2SAT 99
[2022-10-19] MEDS: NIFEdipine ER 30 MG TAB PO SCH (10:00)
[2022-10-19] MEDS: PANTOPRAZOLE 40 MG TAB PO SCH (10:00)
[2022-10-19] MEDS: MULTIPLE VITAMINS W/ MINERALS TAB PO SCH (10:00)
[2022-10-19] MEDS: CARVEDILOL 12.5 MG TAB PO SCH ×2 (10:00→20:55)
[2022-10-19] MEDS: amLODIPine BESYLATE 5 MG TAB PO SCH (10:00)
[2022-10-19] MEDS: ASPirin-EC 81 mg tab PO SCH (10:00)
[2022-10-19] MEDS: cloNIDine HCL 0.1 MG TAB PO SCH ×2 (10:00→20:54)
[2022-10-19] MEDS: DOCUSATE SOD 100 MG CAP PO SCH (10:00)
[2022-10-19 13:00] VITALS: BP 157/74; PULSE 69; RESP 16; TEMP 97.8; O2SAT 99
[2022-10-19 15:02] LABS: Hepatitis B Surface Antibody Positive (Negative)
[2022-10-19 15:12] LABS: Hepatitis B Surface Antigen Negative (Negative)
[2022-10-19 15:34] LABS: Hepatitis B Core IgM Negative
[2022-10-19] MEDS ORDERED: EPOETIN ALFA-EPBX 4,000 UNIT/ML VIAL SC ONE (18:00)
[2022-10-19 20:00] VITALS: PULSE 72
[2022-10-19 22:00] VITALS: BP 141/70; PULSE 72; RESP 14; TEMP 98.4; O2SAT 100
[2022-10-20] VITALS (11 sets, daily range): BP systolic 150–191; BP diastolic 59–97; PULSE 66–77; RESP 14–21; TEMP 97.9–98.5; O2SAT 93–100
[2022-10-20] MEDS ORDERED: fentaNYL CITRATE 100 MCG/2 ML VL ONE (07:58)
[2022-10-20] MEDS ORDERED: HEPARIN SODIUM (PORCINE) 5000 UNITS/ML 1ML VIAL ONE (07:58)
[2022-10-20] MEDS ORDERED: MIDAZOLAM HCL 2MG/2ML 2ml VIAL (1mg/ml) ONE (07:58)
[2022-10-20] MEDS: SEVELAMER 800 MG TAB PO SCH ×3 (08:00→19:03)
[2022-10-20] MEDS ORDERED: LIDOCAINE 2%HCL (LOCAL ANESTH.) INJ 20ML MDV ONE (08:09)
[2022-10-20] MEDS ORDERED: IODIXANOL 320MG/ML 100ML BTL IV ONE (08:09)
[2022-10-20 08:12] LABS: INR 1.15 (0.9-1.15); Partial Thromboplastin Time 29.3 SEC (24.5-34.5)
[2022-10-20] MEDS ORDERED: ceFAZolin 1GM/50ML 50 ML IV ONE (08:15)
[2022-10-20] MEDS: amLODIPine BESYLATE 5 MG TAB PO SCH (10:00)
[2022-10-20] MEDS: ASPirin-EC 81 mg tab PO SCH (10:00)
[2022-10-20] MEDS: NIFEdipine ER 30 MG TAB PO SCH (10:00)
[2022-10-20] MEDS: cloNIDine HCL 0.1 MG TAB PO SCH ×2 (10:00→20:59)
[2022-10-20] MEDS: CARVEDILOL 12.5 MG TAB PO SCH ×2 (10:00→20:58)
[2022-10-20] MEDS: HYDROcodone-ACET 5/325MG TAB PO PRN ×2 (11:59→20:58)
[2022-10-20] MEDS ORDERED: SODIUM CHL 0.9% 1000 ML BAG XX ONE (12:00)
[2022-10-20] MEDS: PANTOPRAZOLE 40 MG TAB PO SCH (12:03)
[2022-10-20] MEDS: MULTIPLE VITAMINS W/ MINERALS TAB PO SCH (12:03)
[2022-10-20] MEDS: DOCUSATE SOD 100 MG CAP PO SCH (12:04)
[2022-10-20] MEDS ORDERED: EPOETIN ALFA-EPBX 4,000 UNIT/ML VIAL SC ONE (21:00)
[2022-10-20] MEDS ORDERED: EPOETIN ALFA-EPBX 10,000 UNIT/1ML VIAL SC ONE (21:00)
[2022-10-20] MEDS: hydrALAZINE HCL 25 MG TAB PO PRN (22:31)
[2022-10-21] VITALS (7 sets, daily range): BP systolic 116–187; BP diastolic 47–80; PULSE 67–82; RESP 16–20; TEMP 97.5–98.7; O2SAT 92–98
[2022-10-21 02:27] LABS: Hematocrit 28.3 % (41.0-53.0); Hemoglobin 9.2 g/dL (13.5-17.5)
[2022-10-21] MEDS: HYDROcodone-ACET 5/325MG TAB PO PRN (04:34)
[2022-10-21 05:25] LABS: Basophils # (auto) 0.1 10 ^3/uL (0-0.2); Basophils % (auto) 1.4 % (0.0-2.0); Eosinophils # (auto) 0.2 10 ^3/uL (0-0.8); Eosinophils % (auto) 3.4 % (0.0-7.0); Hematocrit 29.1 % (41.0-53.0); Hemoglobin 9.5 g/dL (13.5-17.5); Lymphocytes # (auto) 1.5 10 ^3/uL (0.4-5.4); Lymphocytes % (auto) 22.7 % (10.0-50.0); Mean Corpuscular Hemoglobin 29.9 pg (28.0-32.0); Mean Corpuscular Hgb Conc. 32.6 g/dL (32.0-36.0); Mean Corpuscular Volume 91.9 fL (80.0-100.0); Monocytes # (auto) 0.7 10 ^3/uL (0-1.3); Monocytes % (auto) 10.5 % (0.0-12.0); Neutrophils # (auto) 4.1 10 ^3/uL (1.6-8.6); Nucleated Red Blood Cells % 0.1 %; Red Blood Cells 3.17 10^6/uL (4.5-5.90); Red Cell Distribution Width 17.3 % (11.8-14.3); White Blood Cell 6.6 10^3/uL (4.4-10.8)
[2022-10-21 05:34] LABS: Anion Gap 10 (5-15); Carbon Dioxide 26 mmol/L (20-30); Chloride 98 mmol/L (98-107); Sodium 134 mmol/L (136-145)
[2022-10-21 05:35] LABS: Calcium 9.4 mg/dL (8.7-10.4)
[2022-10-21 05:37] LABS: Potassium 5.8 mmol/L (3.5-5.1)
[2022-10-21 05:40] LABS: BUN/Creatinine Ratio 3.9 (10.0-20.0); Glucose 96 mg/dL (74-106)
[2022-10-21 05:47] LABS: Blood Urea Nitrogen 53 mg/dL (9-23)
[2022-10-21] MEDS: hydrALAZINE HCL 25 MG TAB PO PRN (06:49)
[2022-10-21] MEDS: SEVELAMER 800 MG TAB PO SCH ×3 (08:00→17:48)
[2022-10-21] MEDS: ASPirin-EC 81 mg tab PO SCH (10:00)
[2022-10-21] MEDS: MULTIPLE VITAMINS W/ MINERALS TAB PO SCH (10:32)
[2022-10-21] MEDS: DOCUSATE SOD 100 MG CAP PO SCH (10:32)
[2022-10-21] MEDS: cloNIDine HCL 0.1 MG TAB PO SCH ×2 (10:33→22:19)
[2022-10-21] MEDS: PANTOPRAZOLE 40 MG TAB PO SCH (10:33)
[2022-10-21] MEDS: CARVEDILOL 12.5 MG TAB PO SCH ×2 (10:33→22:20)
[2022-10-21] MEDS: amLODIPine BESYLATE 5 MG TAB PO SCH (10:33)
[2022-10-21] MEDS: NIFEdipine ER 30 MG TAB PO SCH (10:34)
[2022-10-22] VITALS (7 sets, daily range): BP systolic 112–160; BP diastolic 59–86; PULSE 70–80; RESP 16–18; TEMP 97.4–98.4; O2SAT 96–98
[2022-10-22] MEDS: cloNIDine HCL 0.1 MG TAB PO SCH ×2 (08:28→22:19)
[2022-10-22] MEDS: SEVELAMER 800 MG TAB PO SCH ×3 (08:28→17:25)
[2022-10-22] MEDS: amLODIPine BESYLATE 5 MG TAB PO SCH (08:29)
[2022-10-22] MEDS: PANTOPRAZOLE 40 MG TAB PO SCH (08:30)
[2022-10-22] MEDS: CARVEDILOL 12.5 MG TAB PO SCH ×2 (08:30→22:20)
[2022-10-22] MEDS: DOCUSATE SOD 100 MG CAP PO SCH (08:31)
[2022-10-22] MEDS: NIFEdipine ER 30 MG TAB PO SCH (08:31)
[2022-10-22] MEDS: MULTIPLE VITAMINS W/ MINERALS TAB PO SCH (08:31)
[2022-10-22] MEDS: ASPirin-EC 81 mg tab PO SCH (10:00)
[2022-10-23] VITALS (8 sets, daily range): BP systolic 119–160; BP diastolic 71–81; PULSE 70–88; RESP 16–78; TEMP 97.8–98.9; O2SAT 96–97
[2022-10-23] MEDS ORDERED: SODIUM CHL 0.9% 1000 ML BAG XX ONE (07:00)
[2022-10-23] MEDS: SEVELAMER 800 MG TAB PO SCH ×3 (08:32→17:53)
[2022-10-23] MEDS: MULTIPLE VITAMINS W/ MINERALS TAB PO SCH (09:20)
[2022-10-23] MEDS: PANTOPRAZOLE 40 MG TAB PO SCH (09:20)
[2022-10-23] MEDS: DOCUSATE SOD 100 MG CAP PO SCH (09:20)
[2022-10-23] MEDS: CARVEDILOL 12.5 MG TAB PO SCH ×2 (12:00→22:13)
[2022-10-23] MEDS: cloNIDine HCL 0.1 MG TAB PO SCH ×2 (12:00→22:12)
[2022-10-23 13:41] LABS: Calcium 9.3 mg/dL (8.5-10.1); Carbon Dioxide 27 mmol/L (20-30)
[2022-10-23 13:46] LABS: BUN/Creatinine Ratio 3.2 (10.0-20.0); Blood Urea Nitrogen 37 mg/dL (9-23); Glucose 105 mg/dL (74-106)
[2022-10-23 14:34] LABS: Anion Gap 9 (5-15); Chloride 97 mmol/L (98-107); Potassium 5.1 mmol/L (3.5-5.1); Sodium 133 mmol/L (136-145)
[2022-10-23] MEDS: NIFEdipine ER 30 MG TAB PO SCH (17:52)
[2022-10-23] MEDS: ASPirin-EC 81 mg tab PO SCH (17:53)
[2022-10-23] MEDS: amLODIPine BESYLATE 5 MG TAB PO SCH (17:53)
[2022-10-23] MEDS ORDERED: EPOETIN ALFA-EPBX 10,000 UNIT/1ML VIAL SC ONE (21:00)
[2022-10-24 05:00] VITALS: BP 124/54; PULSE 75; RESP 17; TEMP 98.4; O2SAT 97
[2022-10-24 06:37] LABS: Anion Gap 8 (5-15); Carbon Dioxide 27 mmol/L (20-30); Chloride 97 mmol/L (98-107); Potassium 5.5 mmol/L (3.5-5.1); Sodium 132 mmol/L (136-145)
[2022-10-24 06:38] LABS: Calcium 9.4 mg/dL (8.7-10.4)
[2022-10-24 06:43] LABS: BUN/Creatinine Ratio 3.3 (10.0-20.0); Blood Urea Nitrogen 44 mg/dL (9-23); Glucose 97 mg/dL (74-106)
[2022-10-24 08:00] VITALS: PULSE 71; PULSE 86; RESP 18
[2022-10-24 09:12] VITALS: BP 134/75; PULSE 72; RESP 18; TEMP 98.3; O2SAT 96
[2022-10-24] MEDS: PANTOPRAZOLE 40 MG TAB PO SCH (09:14)
[2022-10-24] MEDS: SEVELAMER 800 MG TAB PO SCH ×2 (09:14→12:20)
[2022-10-24] MEDS: DOCUSATE SOD 100 MG CAP PO SCH (09:14)
[2022-10-24] MEDS: MULTIPLE VITAMINS W/ MINERALS TAB PO SCH (09:14)
[2022-10-24] MEDS: ASPirin-EC 81 mg tab PO SCH (12:20)
[2022-10-24] MEDS: amLODIPine BESYLATE 5 MG TAB PO SCH (12:20)
[2022-10-24] MEDS: NIFEdipine ER 30 MG TAB PO SCH (12:21)
[2022-10-24] MEDS: CARVEDILOL 12.5 MG TAB PO SCH (12:21)
[2022-10-24] MEDS: cloNIDine HCL 0.1 MG TAB PO SCH (12:22)
[2022-10-24 12:31] VITALS: BP 158/78; PULSE 74; RESP 18; TEMP 97.5; O2SAT 98
[2022-10-24 12:43] VITALS: BP 177/71; PULSE 74; RESP 18; TEMP 97.5; O2SAT 98
== END 2022-10-24 14:33 | disposition home health service (06) | DRG 252 ==
LOC: ER 15:10 → EDBD 15:10 → TELE 22:42 → TELE-WESTW 10-17 17:21
PROVIDERS: ADMIT Nurse Practitioner Family; ATTEND Internal Medicine
PROC: 03WY3JZ Revision of Synthetic Substitute in Upper Artery, Percutaneous Approach (ICD-10-PCS; principal; 2022-10-18 07:57)
PROC: 0JH63XZ Insertion of Tunneled Vascular Access Device into Chest Subcutaneous Tissue and Fascia, Percutaneous Approach (ICD-10-PCS; 2022-10-20)
PROC: 02HV33Z Insertion of Infusion Device into Superior Vena Cava, Percutaneous Approach (ICD-10-PCS; 2022-10-20)
PROC: B518YZA Fluoroscopy of Superior Vena Cava using Other Contrast, Guidance (ICD-10-PCS; 2022-10-20)
PROC: B548ZZA Ultrasonography of Superior Vena Cava, Guidance (ICD-10-PCS; 2022-10-20)
PROC: 5A1D70Z Performance of Urinary Filtration, Intermittent, Less than 6 Hours Per Day (ICD-10-PCS; 2022-10-21)
PROC: 5A1D70Z Performance of Urinary Filtration, Intermittent, Less than 6 Hours Per Day (ICD-10-PCS; 2022-10-24)
DX: T82.868A Thrombosis due to vascular prosthetic devices, implants and grafts, initial encounter (principal); N18.6 End stage renal disease; I13.2 Hypertensive heart and chronic kidney disease with heart failure and with stage 5 chronic kidney disease, or end stage renal disease; Z94.0 Kidney transplant status; T82.838A Hemorrhage due to vascular prosthetic devices, implants and grafts, initial encounter; I25.10 Atherosclerotic heart disease of native coronary artery without angina pectoris; I50.9 Heart failure, unspecified; I16.0 Hypertensive urgency; M10.9 Gout, unspecified; E78.5 Hyperlipidemia, unspecified; D64.9 Anemia, unspecified; Y83.2 Surgical operation with anastomosis, bypass or graft as the cause of abnormal reaction of the patient, or of later complication, without mention of misadventure at the time of the procedure; Y84.1 Kidney dialysis as the cause of abnormal reaction of the patient, or of later complication, without mention of misadventure at the time of the procedure; Y92.89 Other specified places as the place of occurrence of the external cause; Z20.822 Contact with and (suspected) exposure to COVID-19; Z82.0 Family history of epilepsy and other diseases of the nervous system; I25.2 Old myocardial infarction; Z86.73 Personal history of transient ischemic attack (TIA), and cerebral infarction without residual deficits; Z99.2 Dependence on renal dialysis; Z82.3 Family history of stroke; Z82.49 Family history of ischemic heart disease and other diseases of the circulatory system; Z88.1 Allergy status to other antibiotic agents; Z88.3 Allergy status to other anti-infective agents; Z95.2 Presence of prosthetic heart valve
CPT/HCPCS: 36415; 36558; 71045; 77001; 80048; 80053; 80076; 83605; 83690; 83735; 84443; 84484; 85014; 85018; 85025; 85610; 85730; 86705; 86706; 86850; 86900; 86901; 87340; 87426; 90935; 99152; C1768; C1894; G0378; J0690; J1100; J1642; J2001; J2250; J2405; J2704; J3490; Q9967

== ENCOUNTER 2022-10-29 20:05 | Inpatient (IN) | payer MEDICARE, MEDICAID ==
[~2022-10-29] VITALS: Ht 185.4 cm; Wt 62.4 kg
[~2022-10-29 20:05] MED LIST changes: +CLON0.2T PO
[2022-10-29] MEDS ORDERED: ACETAMINOPHEN 500 MG TAB PO ONE (21:00)
[2022-10-29 21:25] VITALS: PULSE 81; RESP 18; O2SAT 96
[2022-10-29 21:30] LABS: COVID19 ANTIGEN SOFIA FIA NEGATIVE (NEGATIVE); Rapid Influenza A Negative (Negative); Rapid Influenza B Negative (Negative)
[2022-10-29] MEDS ORDERED: PANTOPRAZOLE 40 MG/10 ML VIAL INJ IV ONE (21:45)
[2022-10-29] MEDS ORDERED: SODIUM CHLORIDE 0.9% 2,200 ML IV ONE (21:45)
[2022-10-29] MEDS ORDERED: VANCOMYCIN PER PHARMACY 1,000 MG IV SCH (21:45)
[2022-10-29] MEDS ORDERED: ACETAMINOPHEN 325 MG TAB PO PRN (21:45)
[2022-10-29] MEDS ORDERED: IBUPROFEN 600 MG TAB PO ONE (21:45)
[2022-10-29 21:50] LABS: Basophils # (auto) 0 10 ^3/uL (0-0.2); Basophils % (auto) 0.2 % (0.0-2.0); Eosinophils # (auto) 0 10 ^3/uL (0-0.8); Eosinophils % (auto) 0.2 % (0.0-7.0); Hematocrit 23.4 % (41.0-53.0); Hemoglobin 7.7 g/dL (13.5-17.5); Lymphocytes # (auto) 1.1 10 ^3/uL (0.4-5.4); Lymphocytes % (auto) 8.3 % (10.0-50.0); Mean Corpuscular Hemoglobin 28.4 pg (28.0-32.0); Mean Corpuscular Volume 86.1 fL (80.0-100.0); Monocytes # (auto) 1.3 10 ^3/uL (0-1.3); Monocytes % (auto) 9.8 % (0.0-12.0); Neutrophils # (auto) 11.1 10 ^3/uL (1.6-8.6); Neutrophils % (auto) 81.5 % (37.0-80.0); Red Blood Cells 2.72 10^6/uL (4.5-5.90); Red Cell Distribution Width 17.4 % (11.8-14.3); White Blood Cell 13.7 10^3/uL (4.4-10.8)
[2022-10-29 22:02] LABS: Alkaline Phosphatase 86 U/L (46-116); Calcium 9.4 mg/dL (8.7-10.4); Carbon Dioxide 25 mmol/L (20-30); Chloride 94 mmol/L (98-107); Glucose 104 mg/dL (74-106); Magnesium 1.6 mg/dL (1.6-2.6); Potassium 4.7 mmol/L (3.5-5.1)
[2022-10-29 22:03] LABS: Albumin 3.5 g/dL (3.2-4.8); Anion Gap 9 (5-15); Aspartate Aminotransferase 28 U/L (13-40); BUN/Creatinine Ratio 5.1 (10.0-20.0); Bilirubin, Total 0.6 mg/dL (0.2-1.0); Blood Urea Nitrogen 46 mg/dL (9-23); Sodium 128 mmol/L (136-145); Total Protein 7.7 g/dL (5.7-8.2)
[2022-10-29 22:10] LABS: Alanine Aminotransferase < 9 U/L (7-40)
[2022-10-29] MEDS ORDERED: VANCOMYCIN 1GM/250ML 250 ML IV ONE (22:15)
[2022-10-29 22:30] LABS: Base Excess 3.1 mmol/L (-2.0-2.0)
[2022-10-29 23:42] LABS: INR 1.25 (0.9-1.15); Partial Thromboplastin Time 39.6 SEC (24.5-34.5); Prothrombin Time 12.9 sec (9.3-11.8)
[2022-10-29] MEDS: PIPERACILLIN-TAZOB 3.375GM 100 ML IV SCH (23:57)
[2022-10-30 00:22] LABS: % Iron Saturation 6.3 % (20-55)
[2022-10-30] MEDS ORDERED: MORPHINE SULFATE INJ 2 MG/ml SYRG IV PRN (03:45)
[2022-10-30] MEDS ORDERED: ONDANSETRON HCL 4 MG/2 ML VIAL IV PRN (03:45)
[2022-10-30] MEDS ORDERED: NITROGLYCERIN 0.4 MG SL TAB SL PRN (03:45)
[2022-10-30] MEDS: PIPERACILLIN-TAZOB 3.375GM 100 ML IV SCH (06:04)
[2022-10-30 07:20] VITALS: PULSE 90; RESP 14; O2SAT 100
[2022-10-30] MEDS: SEVELAMER 800 MG TAB PO SCH ×3 (07:54→21:23)
[2022-10-30] MEDS ORDERED: NIFEdipine ER 30 MG TAB PO SCH (10:00)
[2022-10-30] MEDS: CARVEDILOL 12.5 MG TAB PO SCH ×2 (10:13→21:53)
[2022-10-30] MEDS: ASPirin 81 mg TAB PO SCH (10:13)
[2022-10-30] MEDS: CLOPIDOGREL BISULFATE 75 MG TAB PO SCH (10:13)
[2022-10-30] MEDS: PANTOPRAZOLE 40 MG TAB PO SCH (10:13)
[2022-10-30 10:47] LABS: Folate (Folic Acid) > 24.00 ng/mL (>5.38)
[2022-10-30] MEDS ORDERED: cefTRIAXone 1GM/50ML D5W 50 ML IV ONE (11:30)
[2022-10-30] MEDS: CEFEPIME 1GM/ 50ML 50 ML IV SCH (13:49)
[2022-10-30] MEDS ORDERED: SODIUM ZIRCONIUM CYCL 10 GM PAK PO SCH (14:15)
[2022-10-30] MEDS ORDERED: SODIUM CHL 0.9% 1000 ML BAG XX ONE (14:45)
[2022-10-30] MEDS ORDERED: ALBUMIN 25% 100 ML IV ONE (15:15)
[2022-10-30] MEDS ORDERED: MIDODRINE HCL 10 MG TAB PO ONE (15:15)
[2022-10-30 16:55] LABS: Hepatitis B Surface Antigen Negative (Negative)
[2022-10-30 17:00] VITALS: PULSE 60; RESP 18; O2SAT 95
[2022-10-30 17:15] LABS: Hepatitis A Ab IgM Negative
[2022-10-30 17:16] LABS: Hepatitis B Core IgM Negative
[2022-10-30 17:36] LABS: Hepatitis C Antibody Reactive (Negative)
[2022-10-30] MEDS ORDERED: VANCOMYCIN 1GM/250ML 250 ML IV ONE (18:00)
[2022-10-30 20:30] VITALS: BP 102/48; PULSE 63; PULSE 67; RESP 22; TEMP 97.6; O2SAT 100
[2022-10-30] MEDS ORDERED: EPOETIN ALFA-EPBX 10,000 UNIT/1ML VIAL SC ONE (21:00)
[2022-10-30] MEDS: ATORVASTATIN 20 MG TAB PO SCH (21:24)
[2022-10-30] MEDS: ACETAMINOPHEN 325 MG TAB PO PRN (21:45)
[2022-10-30 22:00] VITALS: BP 102/48; PULSE 67; RESP 22; TEMP 97.6; O2SAT 100
[2022-10-30] MEDS ORDERED: HYDROcodone-ACET 5/325MG TAB PO ONE (23:00)
[2022-10-31 05:00] VITALS: BP 88/47; PULSE 62; RESP 22; TEMP 97.6; O2SAT 100
[2022-10-31] MEDS ORDERED: HYDROcodone-ACET 5/325MG TAB PO ONE (07:00)
[2022-10-31 08:00] VITALS: BP 102/48; PULSE 63; PULSE 67; RESP 20; RESP 22; TEMP 97.6; O2SAT 98
[2022-10-31] MEDS: SEVELAMER 800 MG TAB PO SCH ×3 (08:12→18:00)
[2022-10-31] MEDS ORDERED: cefTRIAXone 1GM/50ML D5W 50 ML IV SCH (09:00)
[2022-10-31 09:34] VITALS: BP 102/49; PULSE 60; RESP 17; TEMP 98.6; O2SAT 99
[2022-10-31] MEDS: CARVEDILOL 12.5 MG TAB PO SCH ×2 (10:00→21:58)
[2022-10-31] MEDS: NIFEdipine ER 30 MG TAB PO SCH (10:00)
[2022-10-31] MEDS: ASPirin 81 mg TAB PO SCH (10:56)
[2022-10-31] MEDS: PANTOPRAZOLE 40 MG TAB PO SCH (10:56)
[2022-10-31] MEDS: CEFEPIME 1GM/ 50ML 50 ML IV SCH (10:57)
[2022-10-31 11:07] LABS: Albumin 2.6 g/dL (3.2-4.8); Alkaline Phosphatase 56 U/L (46-116); Anion Gap 8 (5-15); Aspartate Aminotransferase 14 U/L (13-40); BUN/Creatinine Ratio 5.8 (10.0-20.0); Blood Urea Nitrogen 48 mg/dL (9-23); Calcium 8.6 mg/dL (8.5-10.1); Carbon Dioxide 27 mmol/L (20-30); Chloride 98 mmol/L (98-107); Glucose 180 mg/dL (74-106)
[2022-10-31 11:08] LABS: Bilirubin, Total 0.5 mg/dL (0.2-1.0); Total Protein 5.8 g/dL (5.7-8.2)
[2022-10-31] MEDS: CLOPIDOGREL BISULFATE 75 MG TAB PO SCH (11:11)
[2022-10-31 11:20] LABS: Alanine Aminotransferase < 9 U/L (7-40); Sodium 133 mmol/L (136-145)
[2022-10-31 11:21] LABS: Hematocrit 23.2 % (41.0-53.0); Hemoglobin 7.8 g/dL (13.5-17.5); Mean Corpuscular Hemoglobin 28.6 pg (28.0-32.0); Mean Corpuscular Hgb Conc. 33.5 g/dL (32.0-36.0); Mean Corpuscular Volume 85.5 fL (80.0-100.0); Red Blood Cells 2.71 10^6/uL (4.5-5.90); Red Cell Distribution Width 17.4 % (11.8-14.3); White Blood Cell 13.8 10^3/uL (4.4-10.8)
[2022-10-31 11:23] LABS: Basophils % (manual) 0 (0.0-2.0); Blast Cells 0; Myelocytes % 0; Promyelocytes % 0; Reactive Lymphocytes 0
[2022-10-31 12:37] LABS: Band Neutrophils % (manual) 7; Eosinophils % (manual) 1 (0-7); Lymphocytes % (manual) 13 (10.0-50.0); Metamyelocytes % 1; Monocytes % (manual) 9 (0-12); Platelet Estimate Decreased
[2022-10-31 12:55] VITALS: BP 99/49; PULSE 64; RESP 17; TEMP 98.4; O2SAT 98
[2022-10-31] MEDS: SODIUM ZIRCONIUM CYCL 10 GM PAK PO SCH (15:58)
[2022-10-31] MEDS ORDERED: SEVE800T8 PO (16:17)
[2022-10-31] MEDS ORDERED: MULT-964 PO (16:17)
[2022-10-31] MEDS ORDERED: CARV12.544 PO (16:17)
[2022-10-31] MEDS ORDERED: CLOP75TA70 PO (16:17)
[2022-10-31] MEDS ORDERED: SIMV20TA20 PO (16:17)
[2022-10-31] MEDS ORDERED: ASPI-543 PO (16:17)
[2022-10-31] MEDS ORDERED: PANT40TA2 PO (16:17)
[2022-10-31] MEDS ORDERED: NIFE90TA75 PO (16:17)
[2022-10-31] MEDS ORDERED: CLON0.1T PO (16:17)
[2022-10-31] MEDS ORDERED: DOCU-94 PO (16:17)
[2022-10-31 16:37] VITALS: BP 104/46; PULSE 61; RESP 17; TEMP 98.6; O2SAT 100
[2022-10-31 20:00] VITALS: BP 118/53; PULSE 65; PULSE 72; RESP 18; TEMP 97.4; O2SAT 100
[2022-10-31] MEDS: ACETAMINOPHEN 325 MG TAB PO PRN (20:40)
[2022-10-31] MEDS: ATORVASTATIN 20 MG TAB PO SCH (21:57)
[2022-11-01 06:15] LABS: Anion Gap 8 (5-15); Carbon Dioxide 26 mmol/L (20-30); Chloride 97 mmol/L (98-107); Potassium 3.9 mmol/L (3.5-5.1); Sodium 131 mmol/L (136-145)
[2022-11-01 06:21] LABS: BUN/Creatinine Ratio 5.6 (10.0-20.0); Blood Urea Nitrogen 53 mg/dL (9-23); Glucose 107 mg/dL (74-106)
[2022-11-01] MEDS ORDERED: SODIUM CHL 0.9% 1000 ML BAG XX ONE (07:00)
[2022-11-01 08:00] VITALS: PULSE 67
[2022-11-01] MEDS: SEVELAMER 800 MG TAB PO SCH ×3 (08:00→18:15)
[2022-11-01] MEDS ORDERED: LIDOCAINE 2%HCL (LOCAL ANESTH.) INJ 10ml MDV ONE (08:37)
[2022-11-01 10:08] VITALS: BP 119/59; PULSE 72; RESP 16; TEMP 98.2; O2SAT 97
[2022-11-01] MEDS: CEFEPIME 1GM/ 50ML 50 ML IV SCH (12:35)
[2022-11-01] MEDS: PANTOPRAZOLE 40 MG TAB PO SCH (12:35)
[2022-11-01] MEDS: CARVEDILOL 12.5 MG TAB PO SCH ×2 (12:36→22:09)
[2022-11-01] MEDS: CLOPIDOGREL BISULFATE 75 MG TAB PO SCH (12:36)
[2022-11-01] MEDS: NIFEdipine ER 30 MG TAB PO SCH (12:36)
[2022-11-01] MEDS: ASPirin 81 mg TAB PO SCH (12:36)
[2022-11-01 13:16] VITALS: BP 131/54; PULSE 74; RESP 17; TEMP 98.7; O2SAT 96
[2022-11-01] MEDS: SODIUM ZIRCONIUM CYCL 10 GM PAK PO SCH (14:00)
[2022-11-01 17:06] VITALS: BP 116/46; PULSE 70; RESP 16; TEMP 97.6; O2SAT 93
[2022-11-01 20:00] VITALS: BP 124/49; PULSE 69; PULSE 72; RESP 18; TEMP 97.9; O2SAT 99
[2022-11-01] MEDS ORDERED: EPOETIN ALFA-EPBX 10,000 UNIT/1ML VIAL SC ONE (21:00)
[2022-11-01 22:00] VITALS: BP 124/49; PULSE 69; RESP 20; TEMP 97.9; O2SAT 99
[2022-11-01] MEDS: ATORVASTATIN 20 MG TAB PO SCH (22:08)
[2022-11-02] VITALS (9 sets, daily range): BP systolic 103–140; BP diastolic 44–71; PULSE 62–76; RESP 18; TEMP 97.5–98.9; O2SAT 91–100
[2022-11-02 07:21] LABS: Basophils # (auto) 0 10 ^3/uL (0-0.2); Basophils % (auto) 0.3 % (0.0-2.0); Eosinophils # (auto) 0.1 10 ^3/uL (0-0.8)
[2022-11-02 07:22] LABS: Eosinophils % (auto) 0.9 % (0.0-7.0); Hematocrit 21.5 % (41.0-53.0); Lymphocytes # (auto) 1.4 10 ^3/uL (0.4-5.4); Lymphocytes % (auto) 10.9 % (10.0-50.0); Mean Corpuscular Hemoglobin 28.5 pg (28.0-32.0); Mean Corpuscular Hgb Conc. 32.7 g/dL (32.0-36.0); Mean Corpuscular Volume 87.4 fL (80.0-100.0); Monocytes % (auto) 15.2 % (0.0-12.0); Neutrophils # (auto) 9.7 10 ^3/uL (1.6-8.6); Neutrophils % (auto) 72.7 % (37.0-80.0); Red Blood Cells 2.46 10^6/uL (4.5-5.90); Red Cell Distribution Width 17.6 % (11.8-14.3); White Blood Cell 13.3 10^3/uL (4.4-10.8)
[2022-11-02 07:33] LABS: Chloride 97 mmol/L (98-107); Potassium 3.7 mmol/L (3.5-5.1)
[2022-11-02 07:34] LABS: Sodium 133 mmol/L (136-145)
[2022-11-02 07:35] LABS: Anion Gap 12 (5-15); Calcium 9.1 mg/dL (8.7-10.4); Carbon Dioxide 24 mmol/L (20-30)
[2022-11-02 07:40] LABS: BUN/Creatinine Ratio 4.8 (10.0-20.0); Blood Urea Nitrogen 52 mg/dL (9-23); Glucose 108 mg/dL (74-106)
[2022-11-02] MEDS: CEFEPIME 1GM/ 50ML 50 ML IV SCH (08:33)
[2022-11-02] MEDS: PANTOPRAZOLE 40 MG TAB PO SCH (08:33)
[2022-11-02] MEDS: SEVELAMER 800 MG TAB PO SCH ×3 (08:34→18:01)
[2022-11-02] MEDS: ASPirin 81 mg TAB PO SCH (08:34)
[2022-11-02] MEDS: CLOPIDOGREL BISULFATE 75 MG TAB PO SCH (08:34)
[2022-11-02] MEDS ORDERED: SODIUM CHL 0.9% 1000 ML BAG XX ONE (09:30)
[2022-11-02] MEDS ORDERED: LIDOCAINE HCL 5 % TOP OINT 35 GM TOP ONE (09:30)
[2022-11-02] MEDS: CARVEDILOL 12.5 MG TAB PO SCH ×2 (09:36→22:06)
[2022-11-02] MEDS: NIFEdipine ER 30 MG TAB PO SCH (09:36)
[2022-11-02] MEDS ORDERED: ENOXAPARIN SOD 30 MG/0.3 ML SYRINGE SC SCH (11:00)
[2022-11-02] MEDS: SODIUM ZIRCONIUM CYCL 10 GM PAK PO SCH (14:00)
[2022-11-02] MEDS: MEROPENEM 500MG IVPB 50 ML IV SCH (16:28)
[2022-11-02] MEDS: DOCUSATE SOD 100 MG CAP PO SCH ×2 (16:28→22:05)
[2022-11-02] MEDS: ENOXAPARIN SOD 60 MG/0.6 ML SYRINGE SC SCH (16:28)
[2022-11-02] MEDS: HYDROcodone-ACET 5/325MG TAB PO PRN (18:01)
[2022-11-02] MEDS ORDERED: EPOETIN ALFA-EPBX 10,000 UNIT/1ML VIAL SC ONE ×2 (21:00)
[2022-11-02] MEDS: ATORVASTATIN 20 MG TAB PO SCH (22:05)
[2022-11-03] VITALS (8 sets, daily range): BP systolic 114–158; BP diastolic 50–67; PULSE 68–73; RESP 14–18; TEMP 97.7–98.8; O2SAT 95–99
[2022-11-03] MEDS: ACETAMINOPHEN 325 MG TAB PO PRN (04:32)
[2022-11-03 07:01] LABS: Calcium 9.2 mg/dL (8.5-10.1); Chloride 102 mmol/L (98-107); Potassium 3.9 mmol/L (3.5-5.1); Sodium 138 mmol/L (136-145)
[2022-11-03 07:02] LABS: Anion Gap 8 (5-15); Carbon Dioxide 28 mmol/L (20-30)
[2022-11-03 07:07] LABS: BUN/Creatinine Ratio 4.1 (10.0-20.0); Glucose 92 mg/dL (74-106)
[2022-11-03 07:13] LABS: Basophils # (auto) 0.1 10 ^3/uL (0-0.2); Eosinophils # (auto) 0.1 10 ^3/uL (0-0.8); Hemoglobin 7.9 g/dL (13.5-17.5); Lymphocytes # (auto) 1.5 10 ^3/uL (0.4-5.4); Monocytes # (auto) 2.1 10 ^3/uL (0-1.3); Neutrophils # (auto) 10.2 10 ^3/uL (1.6-8.6)
[2022-11-03 07:14] LABS: Basophils % (auto) 0.6 % (0.0-2.0); Eosinophils % (auto) 0.7 % (0.0-7.0); Hematocrit 23.8 % (41.0-53.0); Lymphocytes % (auto) 10.8 % (10.0-50.0); Mean Corpuscular Hemoglobin 28.8 pg (28.0-32.0); Mean Corpuscular Hgb Conc. 33.3 g/dL (32.0-36.0); Mean Corpuscular Volume 86.3 fL (80.0-100.0); Neutrophils % (auto) 72.9 % (37.0-80.0); Nucleated Red Blood Cells % 0.1 %; Red Blood Cells 2.76 10^6/uL (4.5-5.90)
[2022-11-03 07:16] LABS: Blood Urea Nitrogen 29 mg/dL (9-23)
[2022-11-03] MEDS: HYDROcodone-ACET 5/325MG TAB PO PRN (08:56)
[2022-11-03] MEDS: NIFEdipine ER 30 MG TAB PO SCH (08:56)
[2022-11-03] MEDS: PANTOPRAZOLE 40 MG TAB PO SCH (08:57)
[2022-11-03] MEDS: ASPirin 81 mg TAB PO SCH (08:57)
[2022-11-03] MEDS: CLOPIDOGREL BISULFATE 75 MG TAB PO SCH (08:57)
[2022-11-03] MEDS: DOCUSATE SOD 100 MG CAP PO SCH ×2 (08:57→22:29)
[2022-11-03] MEDS: ENOXAPARIN SOD 60 MG/0.6 ML SYRINGE SC SCH (08:58)
[2022-11-03] MEDS: SEVELAMER 800 MG TAB PO SCH ×3 (08:58→17:45)
[2022-11-03] MEDS: MEROPENEM 500MG IVPB 50 ML IV SCH (09:58)
[2022-11-03] MEDS: CARVEDILOL 12.5 MG TAB PO SCH ×2 (09:59→22:00)
[2022-11-03] MEDS ORDERED: MELATONIN 5 MG TAB PO ONE (22:00)
[2022-11-03] MEDS: ATORVASTATIN 20 MG TAB PO SCH (22:29)
[2022-11-04] VITALS (8 sets, daily range): BP systolic 125–171; BP diastolic 54–71; PULSE 67–81; RESP 14–20; TEMP 36.7; O2SAT 94–99
[2022-11-04 06:14] LABS: Anion Gap 8 (5-15); Carbon Dioxide 28 mmol/L (20-30); Chloride 100 mmol/L (98-107); Potassium 4.4 mmol/L (3.5-5.1); Sodium 136 mmol/L (136-145)
[2022-11-04 06:16] LABS: Calcium 9.1 mg/dL (8.7-10.4)
[2022-11-04 06:20] LABS: BUN/Creatinine Ratio 4.1 (10.0-20.0); Blood Urea Nitrogen 36 mg/dL (9-23); Glucose 95 mg/dL (74-106)
[2022-11-04 06:23] LABS: Basophils % (auto) 0.4 % (0.0-2.0); Eosinophils # (auto) 0.2 10 ^3/uL (0-0.8); Eosinophils % (auto) 1.6 % (0.0-7.0)
[2022-11-04 06:25] LABS: Basophils # (auto) 0.1 10 ^3/uL (0-0.2); Hematocrit 25.3 % (41.0-53.0); Hemoglobin 8.4 g/dL (13.5-17.5); Lymphocytes # (auto) 1.6 10 ^3/uL (0.4-5.4); Lymphocytes % (auto) 12.1 % (10.0-50.0); Mean Corpuscular Hemoglobin 28.7 pg (28.0-32.0); Mean Corpuscular Hgb Conc. 33.4 g/dL (32.0-36.0); Monocytes # (auto) 1.9 10 ^3/uL (0-1.3); Monocytes % (auto) 14.1 % (0.0-12.0); Neutrophils # (auto) 9.7 10 ^3/uL (1.6-8.6); Neutrophils % (auto) 71.8 % (37.0-80.0); Nucleated Red Blood Cells % 0.1 %; Red Blood Cells 2.94 10^6/uL (4.5-5.90); Red Cell Distribution Width 17.1 % (11.8-14.3); White Blood Cell 13.5 10^3/uL (4.4-10.8)
[2022-11-04] MEDS: MEROPENEM 500MG IVPB 50 ML IV SCH (11:03)
[2022-11-04] MEDS: ASPirin 81 mg TAB PO SCH (11:04)
[2022-11-04] MEDS: SEVELAMER 800 MG TAB PO SCH ×3 (11:04→16:57)
[2022-11-04] MEDS: ENOXAPARIN SOD 60 MG/0.6 ML SYRINGE SC SCH (11:04)
[2022-11-04] MEDS: PANTOPRAZOLE 40 MG TAB PO SCH (11:06)
[2022-11-04] MEDS: DOCUSATE SOD 100 MG CAP PO SCH ×2 (11:06→21:41)
[2022-11-04] MEDS: CARVEDILOL 12.5 MG TAB PO SCH ×2 (11:06→21:40)
[2022-11-04] MEDS: NIFEdipine ER 30 MG TAB PO SCH (11:07)
[2022-11-04] MEDS: CLOPIDOGREL BISULFATE 75 MG TAB PO SCH (11:07)
[2022-11-04] MEDS ORDERED: MILK OF MAGNESIA 30ML SUSP PO ONE (13:00)
[2022-11-04] MEDS: hydrALAZINE HCL 20 MG/ML VL IV PRN (14:03)
[2022-11-04] MEDS: HYDROcodone-ACET 5/325MG TAB PO PRN ×2 (14:22→21:39)
[2022-11-04] MEDS ORDERED: EPOETIN ALFA-EPBX 10,000 UNIT/1ML VIAL SC ONE (21:00)
[2022-11-04] MEDS: ATORVASTATIN 20 MG TAB PO SCH (21:41)
[2022-11-05] VITALS (8 sets, daily range): BP systolic 147–164; BP diastolic 54–97; PULSE 63–79; RESP 14–20; TEMP 98–98.4; O2SAT 95–98
[2022-11-05] MEDS: hydrALAZINE HCL 20 MG/ML VL IV PRN (04:51)
[2022-11-05 06:26] LABS: Basophils # (auto) 0.1 10 ^3/uL (0-0.2); Basophils % (auto) 0.6 % (0.0-2.0); Hemoglobin 7.9 g/dL (13.5-17.5); Nucleated Red Blood Cells % 0.1 %
[2022-11-05 06:29] LABS: Eosinophils # (auto) 0.1 10 ^3/uL (0-0.8); Eosinophils % (auto) 1.2 % (0.0-7.0); Hematocrit 24.1 % (41.0-53.0); Lymphocytes # (auto) 1.5 10 ^3/uL (0.4-5.4); Lymphocytes % (auto) 13.5 % (10.0-50.0); Mean Corpuscular Hemoglobin 28.4 pg (28.0-32.0); Mean Corpuscular Hgb Conc. 32.6 g/dL (32.0-36.0); Mean Corpuscular Volume 87.2 fL (80.0-100.0); Monocytes # (auto) 1.5 10 ^3/uL (0-1.3); Monocytes % (auto) 13.4 % (0.0-12.0); Neutrophils # (auto) 8.1 10 ^3/uL (1.6-8.6); Neutrophils % (auto) 71.3 % (37.0-80.0); Red Blood Cells 2.76 10^6/uL (4.5-5.90); Red Cell Distribution Width 17.8 % (11.8-14.3); White Blood Cell 11.3 10^3/uL (4.4-10.8)
[2022-11-05] MEDS: CLOPIDOGREL BISULFATE 75 MG TAB PO SCH (10:00)
[2022-11-05] MEDS: HYDROcodone-ACET 5/325MG TAB PO PRN (10:10)
[2022-11-05] MEDS: SEVELAMER 800 MG TAB PO SCH ×3 (10:10→18:01)
[2022-11-05] MEDS: MEROPENEM 500MG IVPB 50 ML IV SCH (10:10)
[2022-11-05] MEDS: PANTOPRAZOLE 40 MG TAB PO SCH (10:11)
[2022-11-05] MEDS: ASPirin 81 mg TAB PO SCH (10:11)
[2022-11-05] MEDS: DOCUSATE SOD 100 MG CAP PO SCH ×2 (10:11→21:42)
[2022-11-05] MEDS: NIFEdipine ER 30 MG TAB PO SCH (10:11)
[2022-11-05] MEDS: CARVEDILOL 12.5 MG TAB PO SCH ×2 (10:12→21:42)
[2022-11-05] MEDS: ENOXAPARIN SOD 60 MG/0.6 ML SYRINGE SC SCH (10:12)
[2022-11-05] MEDS ORDERED: DOCUSATE SOD 100 MG CAP PO PRN (13:15)
[2022-11-05] MEDS: ATORVASTATIN 20 MG TAB PO SCH (21:42)
[2022-11-06] VITALS (7 sets, daily range): BP systolic 149–158; BP diastolic 60–75; PULSE 69–77; RESP 14–19; TEMP 97.3–98.5; O2SAT 97–98
[2022-11-06] MEDS: hydrALAZINE HCL 20 MG/ML VL IV PRN ×2 (06:26→12:47)
[2022-11-06] MEDS: SEVELAMER 800 MG TAB PO SCH ×3 (09:00→18:07)
[2022-11-06] MEDS: CLOPIDOGREL BISULFATE 75 MG TAB PO SCH (10:00)
[2022-11-06] MEDS: MEROPENEM 500MG IVPB 50 ML IV SCH (10:09)
[2022-11-06] MEDS: ASPirin 81 mg TAB PO SCH (10:11)
[2022-11-06] MEDS: PANTOPRAZOLE 40 MG TAB PO SCH (10:11)
[2022-11-06] MEDS: NIFEdipine ER 30 MG TAB PO SCH (10:11)
[2022-11-06] MEDS: DOCUSATE SOD 100 MG CAP PO SCH ×2 (10:11→21:28)
[2022-11-06] MEDS: CARVEDILOL 12.5 MG TAB PO SCH ×2 (10:12→21:28)
[2022-11-06] MEDS: ENOXAPARIN SOD 60 MG/0.6 ML SYRINGE SC SCH (10:12)
[2022-11-06 12:18] LABS: INR 1.29 (0.9-1.15); Partial Thromboplastin Time 53.2 SEC (24.5-34.5); Prothrombin Time 13.3 sec (9.3-11.8)
[2022-11-06] MEDS: ACETAMINOPHEN 325 MG TAB PO PRN (18:07)
[2022-11-06] MEDS: ATORVASTATIN 20 MG TAB PO SCH (21:28)
[2022-11-06] MEDS ORDERED: MELATONIN 5 MG TAB PO ONE (22:00)
[2022-11-07] VITALS (7 sets, daily range): BP systolic 130–170; BP diastolic 66–87; PULSE 66–77; RESP 18–21; TEMP 97.3–98.2; O2SAT 95–100
[2022-11-07 06:03] LABS: Eosinophils # (auto) 0.1 10 ^3/uL (0-0.8); Hematocrit 23.2 % (41.0-53.0); Lymphocytes # (auto) 1.9 10 ^3/uL (0.4-5.4); Neutrophils % (auto) 73.3 % (37.0-80.0)
[2022-11-07 06:06] LABS: Anion Gap 11 (5-15); Carbon Dioxide 25 mmol/L (20-30); Chloride 98 mmol/L (98-107); Potassium 4.5 mmol/L (3.5-5.1); Sodium 134 mmol/L (136-145)
[2022-11-07 06:07] LABS: Basophils # (auto) 0.1 10 ^3/uL (0-0.2); Basophils % (auto) 0.6 % (0.0-2.0); Eosinophils % (auto) 1.2 % (0.0-7.0); Hemoglobin 7.6 g/dL (13.5-17.5); Lymphocytes % (auto) 15.7 % (10.0-50.0); Mean Corpuscular Hemoglobin 28.3 pg (28.0-32.0); Mean Corpuscular Hgb Conc. 32.7 g/dL (32.0-36.0); Mean Corpuscular Volume 86.3 fL (80.0-100.0); Monocytes # (auto) 1.1 10 ^3/uL (0-1.3); Monocytes % (auto) 9.2 % (0.0-12.0); Neutrophils # (auto) 9.1 10 ^3/uL (1.6-8.6); Nucleated Red Blood Cells % 0.1 %; Red Blood Cells 2.69 10^6/uL (4.5-5.90); Red Cell Distribution Width 17.3 % (11.8-14.3); White Blood Cell 12.3 10^3/uL (4.4-10.8)
[2022-11-07 06:13] LABS: BUN/Creatinine Ratio 3.6 (10.0-20.0); Blood Urea Nitrogen 37 mg/dL (9-23); Glucose 80 mg/dL (74-106)
[2022-11-07] MEDS ORDERED: SODIUM CHL 0.9% 1000 ML BAG XX ONE (07:00)
[2022-11-07] MEDS: SEVELAMER 800 MG TAB PO SCH ×3 (08:22→18:17)
[2022-11-07] MEDS: MEROPENEM 500MG IVPB 50 ML IV SCH (11:03)
[2022-11-07] MEDS: CLOPIDOGREL BISULFATE 75 MG TAB PO SCH (11:03)
[2022-11-07] MEDS: PANTOPRAZOLE 40 MG TAB PO SCH (11:04)
[2022-11-07] MEDS: ASPirin 81 mg TAB PO SCH (11:04)
[2022-11-07] MEDS: CARVEDILOL 12.5 MG TAB PO SCH ×2 (11:04→21:52)
[2022-11-07] MEDS: DOCUSATE SOD 100 MG CAP PO SCH ×2 (11:04→21:52)
[2022-11-07] MEDS: NIFEdipine ER 30 MG TAB PO SCH (11:05)
[2022-11-07] MEDS: ENOXAPARIN SOD 60 MG/0.6 ML SYRINGE SC SCH (11:06)
[2022-11-07] MEDS ORDERED: EPOETIN ALFA-EPBX 10,000 UNIT/1ML VIAL SC ONE (21:00)
[2022-11-07] MEDS: ATORVASTATIN 20 MG TAB PO SCH (21:52)
[2022-11-07] MEDS ORDERED: MELATONIN 5 MG TAB PO ONE (22:00)
[2022-11-08] VITALS (17 sets, daily range): BP systolic 124–207; BP diastolic 69–85; PULSE 60–119; RESP 12–26; TEMP 97.7; O2SAT 90–100
[2022-11-08 06:00] LABS: Basophils # (auto) 0.1 10 ^3/uL (0-0.2); Hemoglobin 7.9 g/dL (13.5-17.5); Lymphocytes # (auto) 1.9 10 ^3/uL (0.4-5.4); Monocytes # (auto) 1.1 10 ^3/uL (0-1.3)
[2022-11-08] MEDS: hydrALAZINE HCL 20 MG/ML VL IV PRN ×3 (06:00→23:02)
[2022-11-08 06:03] LABS: Basophils % (auto) 0.8 % (0.0-2.0); Eosinophils # (auto) 0.1 10 ^3/uL (0-0.8); Hematocrit 24.2 % (41.0-53.0); Lymphocytes % (auto) 13.3 % (10.0-50.0); Mean Corpuscular Hemoglobin 28.5 pg (28.0-32.0); Mean Corpuscular Hgb Conc. 32.7 g/dL (32.0-36.0); Mean Corpuscular Volume 87.3 fL (80.0-100.0); Neutrophils # (auto) 10.8 10 ^3/uL (1.6-8.6); Neutrophils % (auto) 76.9 % (37.0-80.0); Nucleated Red Blood Cells % 0.2 %; Red Blood Cells 2.78 10^6/uL (4.5-5.90); Red Cell Distribution Width 17.7 % (11.8-14.3); White Blood Cell 14.1 10^3/uL (4.4-10.8)
[2022-11-08 06:18] LABS: Albumin 3.4 g/dL (3.2-4.8); Alkaline Phosphatase 66 U/L (46-116); Anion Gap 9 (5-15); Aspartate Aminotransferase 11 U/L (13-40); BUN/Creatinine Ratio 3.4 (10.0-20.0); Bilirubin, Total 0.3 mg/dL (0.2-1.0); Blood Urea Nitrogen 40 mg/dL (9-23); Calcium 9.2 mg/dL (8.7-10.4); Carbon Dioxide 25 mmol/L (20-30); Chloride 98 mmol/L (98-107); Glucose 78 mg/dL (74-106); Sodium 132 mmol/L (136-145); Total Protein 7.7 g/dL (5.7-8.2)
[2022-11-08 06:24] LABS: Alanine Aminotransferase < 9 U/L (7-40)
[2022-11-08 07:17] LABS: Platelet Estimate Adequate
[2022-11-08 07:20] LABS: Giant Platelets Few
[2022-11-08] MEDS ORDERED: fentaNYL CITRATE 100 MCG/2 ML VL IV ONE ×2 (08:30→10:00)
[2022-11-08] MEDS ORDERED: MIDAZOLAM HCL 2MG/2ML 2ml VIAL (1mg/ml) IV ONE (08:30)
[2022-11-08] MEDS ORDERED: LIDOCAINE VISCOUS 2% 15ML UD PO ONE (08:30)
[2022-11-08] MEDS ORDERED: FLUMAZENIL 0.1 MG/ML INJ 10ML MDV IV ONE (08:45)
[2022-11-08] MEDS ORDERED: NALOXONE HCL 0.4 MG/ML VIAL ONE (08:45)
[2022-11-08 08:48] LABS: INR 1.16 (0.9-1.15); Partial Thromboplastin Time 41.6 SEC (24.5-34.5); Prothrombin Time 12.1 sec (9.3-11.8)
[2022-11-08] MEDS ORDERED: fentaNYL CITRATE 100 MCG/2 ML VL ONE ×2 (09:24→15:14)
[2022-11-08] MEDS ORDERED: NITROGLYCERIN 50MG/250ML 0 ML IV ONE (14:09)
[2022-11-08] MEDS ORDERED: IODIXANOL 320MG/ML 100ML BTL IV ONE (15:08)
[2022-11-08] MEDS ORDERED: LIDOCAINE 2%HCL (LOCAL ANESTH.) INJ 20ML MDV ONE (15:08)
[2022-11-08] MEDS: SEVELAMER 800 MG TAB PO SCH ×3 (15:12→18:50)
[2022-11-08] MEDS: DOCUSATE SOD 100 MG CAP PO SCH ×2 (15:13→21:34)
[2022-11-08] MEDS: ASPirin 81 mg TAB PO SCH (15:13)
[2022-11-08] MEDS: CARVEDILOL 12.5 MG TAB PO SCH ×2 (15:14→21:34)
[2022-11-08] MEDS: CLOPIDOGREL BISULFATE 75 MG TAB PO SCH (15:14)
[2022-11-08] MEDS: NIFEdipine ER 30 MG TAB PO SCH (15:14)
[2022-11-08] MEDS: PANTOPRAZOLE 40 MG TAB PO SCH (15:14)
[2022-11-08] MEDS ORDERED: MIDAZOLAM HCL 2MG/2ML 2ml VIAL (1mg/ml) ONE (15:15)
[2022-11-08] MEDS: MEROPENEM 500MG IVPB 50 ML IV SCH (15:15)
[2022-11-08] MEDS ORDERED: HEPARIN SODIUM (PORCINE) 5000 UNITS/ML 1ML VIAL ONE (15:47)
[2022-11-08] MEDS ORDERED: ceFAZolin 1GM/50ML 50 ML IV ONE (16:00)
[2022-11-08] MEDS: HYDROcodone-ACET 5/325MG TAB PO PRN (18:54)
[2022-11-08] MEDS: ATORVASTATIN 20 MG TAB PO SCH (21:33)
[2022-11-08] MEDS ORDERED: TEMAZEPAM 15 MG CAP PO ONE (22:00)
[2022-11-09] VITALS (9 sets, daily range): BP systolic 141–193; BP diastolic 63–84; PULSE 66–75; RESP 15–18; TEMP 97.9–98.3; O2SAT 94–98
[2022-11-09] MEDS: HYDROcodone-ACET 5/325MG TAB PO PRN (03:29)
[2022-11-09 06:06] LABS: Basophils # (auto) 0.1 10 ^3/uL (0-0.2); Basophils % (auto) 0.8 % (0.0-2.0); Eosinophils # (auto) 0.1 10 ^3/uL (0-0.8); Monocytes # (auto) 1.2 10 ^3/uL (0-1.3); Nucleated Red Blood Cells % 0.1 %; Red Blood Cells 2.87 10^6/uL (4.5-5.90)
[2022-11-09 06:09] LABS: Eosinophils % (auto) 0.8 % (0.0-7.0); Lymphocytes # (auto) 1.7 10 ^3/uL (0.4-5.4); Mean Corpuscular Hemoglobin 27.9 pg (28.0-32.0); Mean Corpuscular Hgb Conc. 32.1 g/dL (32.0-36.0); Mean Corpuscular Volume 86.9 fL (80.0-100.0); Monocytes % (auto) 9.5 % (0.0-12.0); Neutrophils # (auto) 9.8 10 ^3/uL (1.6-8.6); Neutrophils % (auto) 75.9 % (37.0-80.0); Red Cell Distribution Width 17.4 % (11.8-14.3); White Blood Cell 12.9 10^3/uL (4.4-10.8)
[2022-11-09] MEDS: ASPirin 81 mg TAB PO SCH (08:21)
[2022-11-09] MEDS: CLOPIDOGREL BISULFATE 75 MG TAB PO SCH (08:21)
[2022-11-09] MEDS ORDERED: LABETALOL HCL 5 MG/ML 4ML SYRINGE IV ONE (08:30)
[2022-11-09] MEDS: DOCUSATE SOD 100 MG CAP PO SCH (10:00)
[2022-11-09] MEDS ORDERED: SODIUM CHL 0.9% 1000 ML BAG XX ONE (10:00)
[2022-11-09] MEDS ORDERED: MEROPENEM 500MG IVPB 50 ML IV SCH (11:00)
[2022-11-09] MEDS: SEVELAMER 800 MG TAB PO SCH ×2 (12:00→14:02)
[2022-11-09] MEDS: PANTOPRAZOLE 40 MG TAB PO SCH (14:00)
[2022-11-09] MEDS: NIFEdipine ER 30 MG TAB PO SCH (14:01)
[2022-11-09] MEDS: CARVEDILOL 12.5 MG TAB PO SCH (14:01)
[2022-11-09] MEDS ORDERED: LIDOCAINE 1% HCL (LOCAL ANESTH.) INJ 20ML MDV ID ONE (18:00)
[2022-11-09] MEDS ORDERED: EPOETIN ALFA-EPBX 10,000 UNIT/1ML VIAL SC ONE (21:00)
[2022-11-10] MEDS ORDERED: LEVO500T91 PO (06:57)
== END 2022-11-09 21:10 | disposition home or self-care (01) | DRG 314 ==
LOC: ER 20:05 → EDBD 20:05 → TELE 10-30 03:46 → TELE-CENTR 10-30 16:51 → CENTRAL 11-04 10:36 → TELE-CENTR 11-09 08:38
PROVIDERS: ADMIT Nurse Practitioner; ATTEND Nurse Practitioner Acute Care
PROC: 5A1D70Z Performance of Urinary Filtration, Intermittent, Less than 6 Hours Per Day (ICD-10-PCS; 2022-10-30)
PROC: 0JPV3XZ Removal of Tunneled Vascular Access Device from Upper Extremity Subcutaneous Tissue and Fascia, Percutaneous Approach (ICD-10-PCS; 2022-11-01)
PROC: 5A1D70Z Performance of Urinary Filtration, Intermittent, Less than 6 Hours Per Day (ICD-10-PCS; 2022-11-02)
PROC: 30233N1 Transfusion of Nonautologous Red Blood Cells into Peripheral Vein, Percutaneous Approach (ICD-10-PCS; 2022-11-02)
PROC: 5A1D70Z Performance of Urinary Filtration, Intermittent, Less than 6 Hours Per Day (ICD-10-PCS; 2022-11-04)
PROC: 5A1D70Z Performance of Urinary Filtration, Intermittent, Less than 6 Hours Per Day (ICD-10-PCS; 2022-11-07)
PROC: 0JH63XZ Insertion of Tunneled Vascular Access Device into Chest Subcutaneous Tissue and Fascia, Percutaneous Approach (ICD-10-PCS; principal; 2022-11-08)
PROC: 02H633Z Insertion of Infusion Device into Right Atrium, Percutaneous Approach (ICD-10-PCS; 2022-11-08)
PROC: B548ZZA Ultrasonography of Superior Vena Cava, Guidance (ICD-10-PCS; 2022-11-08)
PROC: B5181ZA Fluoroscopy of Superior Vena Cava using Low Osmolar Contrast, Guidance (ICD-10-PCS; 2022-11-08)
PROC: B24BZZ4 Ultrasonography of Heart with Aorta, Transesophageal (ICD-10-PCS; 2022-11-08)
PROC: 5A1D70Z Performance of Urinary Filtration, Intermittent, Less than 6 Hours Per Day (ICD-10-PCS; 2022-11-09)
DX: T82.838A Hemorrhage due to vascular prosthetic devices, implants and grafts, initial encounter (principal); A41.52 Sepsis due to Pseudomonas; J96.01 Acute respiratory failure with hypoxia; N18.6 End stage renal disease; R65.20 Severe sepsis without septic shock; I13.2 Hypertensive heart and chronic kidney disease with heart failure and with stage 5 chronic kidney disease, or end stage renal disease; I50.32 Chronic diastolic (congestive) heart failure; D63.8 Anemia in other chronic diseases classified elsewhere; Z20.822 Contact with and (suspected) exposure to COVID-19; Y83.8 Other surgical procedures as the cause of abnormal reaction of the patient, or of later complication, without mention of misadventure at the time of the procedure; I25.10 Atherosclerotic heart disease of native coronary artery without angina pectoris; I35.0 Nonrheumatic aortic (valve) stenosis; Z82.0 Family history of epilepsy and other diseases of the nervous system; Z95.2 Presence of prosthetic heart valve; Z99.2 Dependence on renal dialysis; Y92.89 Other specified places as the place of occurrence of the external cause; Z82.3 Family history of stroke; Z82.49 Family history of ischemic heart disease and other diseases of the circulatory system; Z88.1 Allergy status to other antibiotic agents; Z88.3 Allergy status to other anti-infective agents; Z95.1 Presence of aortocoronary bypass graft; Z95.5 Presence of coronary angioplasty implant and graft; Z88.8 Allergy status to other drugs, medicaments and biological substances
CPT/HCPCS: 36415; 36558; 36600; 71045; 76942; 77001; 80048; 80053; 80074; 80202; 82607; 82728; 82746; 82805; 83540; 83550; 83605; 83735; 83880; 84484; 85007; 85025; 85027; 85045; 85610; 85730; 86850; 86900; 86901; 86920; 86922; 87040; 87070; 87077; 87081; 87186; 87426; 87804; 90935; 93005; 93306; 96365; 97163; 99152; 99291; C1769; C1894; C9113; G0378; J0690; J0696; J1642; J2001; J2185; J2250; J2543; J3490; P9047; Q9967

== ENCOUNTER 2022-11-10 14:44 | Inpatient (IN) | payer MEDICARE, MEDICAID ==
[~2022-11-10] VITALS: Ht 172.7 cm; Wt 60.9 kg
[~2022-11-10 14:44] MED LIST changes: -ASPI-498 PO; +ASPI-543 PO; -CLON0.2T PO; +LEVO500T91 PO; -MULT-647 PO; +MULT-964 PO
[2022-11-10 14:50] VITALS: PULSE 86; RESP 17; O2SAT 97
[2022-11-10 16:06] LABS: Basophils # (auto) 0.1 10 ^3/uL (0-0.2); Basophils % (auto) 0.6 % (0.0-2.0)
[2022-11-10 16:08] LABS: Eosinophils # (auto) 0.1 10 ^3/uL (0-0.8); Eosinophils % (auto) 0.6 % (0.0-7.0); Hematocrit 23.5 % (41.0-53.0); Hemoglobin 7.7 g/dL (13.5-17.5); Lymphocytes # (auto) 1.2 10 ^3/uL (0.4-5.4); Mean Corpuscular Hemoglobin 28.2 pg (28.0-32.0); Mean Corpuscular Hgb Conc. 32.9 g/dL (32.0-36.0); Mean Corpuscular Volume 85.8 fL (80.0-100.0); Monocytes # (auto) 1.3 10 ^3/uL (0-1.3); Monocytes % (auto) 12.7 % (0.0-12.0); Neutrophils # (auto) 7.4 10 ^3/uL (1.6-8.6); Neutrophils % (auto) 74.1 % (37.0-80.0); Red Blood Cells 2.73 10^6/uL (4.5-5.90); Red Cell Distribution Width 16.8 % (11.8-14.3)
[2022-11-10 16:25] LABS: INR 1.23 (0.9-1.15); Prothrombin Time 12.7 sec (9.3-11.8)
[2022-11-10 16:32] LABS: Albumin 3.4 g/dL (3.2-4.8); Alkaline Phosphatase 72 U/L (46-116); Anion Gap 8 (5-15); Aspartate Aminotransferase 15 U/L (13-40); BUN/Creatinine Ratio 3.5 (10.0-20.0); Bilirubin, Total 0.3 mg/dL (0.2-1.0); Blood Urea Nitrogen 23 mg/dL (9-23); Calcium 8.9 mg/dL (8.5-10.1); Carbon Dioxide 29 mmol/L (20-30); Chloride 103 mmol/L (98-107); Glucose 80 mg/dL (74-106); Sodium 140 mmol/L (136-145); Total Protein 7.5 g/dL (5.7-8.2)
[2022-11-10 16:35] LABS: Alanine Aminotransferase < 9 U/L (7-40)
[2022-11-10 19:22] LABS: Hematocrit 22.7 % (41.0-53.0); Hemoglobin 7.5 g/dL (13.5-17.5)
[2022-11-10 19:30] VITALS: PULSE 79; RESP 12; O2SAT 98
[2022-11-10] MEDS ORDERED: hydrALAZINE HCL 20 MG/ML VL IV ONE (21:15)
[2022-11-10] MEDS ORDERED: hydrALAZINE HCL 20 MG/ML VL IV PRN (22:00)
[2022-11-10] MEDS: InsuLIN REG 1unit/0.01ml Soln (100units/ml) SC SCH (22:00)
[2022-11-10] MEDS ORDERED: ONDANSETRON HCL 4 MG/2 ML VIAL IV PRN (22:00)
[2022-11-10] MEDS ORDERED: ACETAMINOPHEN 325 MG TAB PO PRN (22:00)
[2022-11-10] MEDS ORDERED: DEXTROSE (50%) 50ML SYRG IV PRN (22:00)
[2022-11-10] MEDS ORDERED: DOCUSATE SOD 100 MG CAP PO PRN (22:00)
[2022-11-10] MEDS ORDERED: HYDROcodone-ACET 5/325MG TAB PO PRN (22:00)
[2022-11-10] MEDS: SODIUM CHLOR 0.9% PF (SALINE LOCK) 10ML VIAL/SYR IV SCH (22:26)
[2022-11-10] MEDS: CARVEDILOL 12.5 MG TAB PO SCH (22:28)
[2022-11-10] MEDS: ACCU-CHEK COMFORT CURVE STRIP VI SCH (22:29)
[2022-11-10] MEDS ORDERED: MORPHINE SULFATE INJ 2 MG/ml SYRG IV PRN (23:30)
[2022-11-10] MEDS ORDERED: NITROGLYCERIN 0.4 MG SL TAB SL PRN (23:30)
[2022-11-11 05:07] LABS: Eosinophils # (auto) 0.1 10 ^3/uL (0-0.8); Hemoglobin 7.7 g/dL (13.5-17.5); Lymphocytes # (auto) 1.5 10 ^3/uL (0.4-5.4); Monocytes # (auto) 1.3 10 ^3/uL (0-1.3)
[2022-11-11 05:08] LABS: Basophils # (auto) 0.1 10 ^3/uL (0-0.2); Basophils % (auto) 1.5 % (0.0-2.0); Eosinophils % (auto) 0.9 % (0.0-7.0); Hematocrit 23.3 % (41.0-53.0); Lymphocytes % (auto) 17.8 % (10.0-50.0); Mean Corpuscular Hemoglobin 28.8 pg (28.0-32.0); Mean Corpuscular Hgb Conc. 33.3 g/dL (32.0-36.0); Mean Corpuscular Volume 86.5 fL (80.0-100.0); Monocytes % (auto) 15.4 % (0.0-12.0); Neutrophils # (auto) 5.6 10 ^3/uL (1.6-8.6); Neutrophils % (auto) 64.4 % (37.0-80.0); Red Blood Cells 2.69 10^6/uL (4.5-5.90); Red Cell Distribution Width 16.9 % (11.8-14.3); White Blood Cell 8.7 10^3/uL (4.4-10.8)
[2022-11-11 05:32] LABS: Albumin 3.3 g/dL (3.2-4.8); Alkaline Phosphatase 66 U/L (46-116); Anion Gap 7 (5-15); Aspartate Aminotransferase 11 U/L (13-40); Blood Urea Nitrogen 24 mg/dL (9-23); Calcium 8.8 mg/dL (8.7-10.4); Carbon Dioxide 28 mmol/L (20-30); Chloride 103 mmol/L (98-107); Glucose 91 mg/dL (74-106); Potassium 4.4 mmol/L (3.5-5.1); Sodium 138 mmol/L (136-145)
[2022-11-11 05:33] LABS: Alanine Aminotransferase < 9 U/L (7-40); Bilirubin, Total 0.3 mg/dL (0.2-1.0); Total Protein 7.6 g/dL (5.7-8.2)
[2022-11-11] MEDS: SODIUM CHLOR 0.9% PF (SALINE LOCK) 10ML VIAL/SYR IV SCH ×2 (06:04→14:10)
[2022-11-11] MEDS: InsuLIN REG 1unit/0.01ml Soln (100units/ml) SC SCH ×2 (07:00→11:30)
[2022-11-11] MEDS: ACCU-CHEK COMFORT CURVE STRIP VI SCH ×2 (07:12→11:30)
[2022-11-11 07:30] VITALS: PULSE 70; RESP 20; O2SAT 100
[2022-11-11] MEDS: SEVELAMER 800 MG TAB PO SCH ×2 (08:00→12:00)
[2022-11-11] MEDS ORDERED: FAMOTIDINE (10MG/ML) 2ML VL IV SCH (10:00)
[2022-11-11] MEDS ORDERED: ASPirin 81 mg TAB PO SCH (10:00)
[2022-11-11] MEDS ORDERED: CLOPIDOGREL BISULFATE 75 MG TAB PO SCH (10:00)
[2022-11-11] MEDS ORDERED: B-COMPLEX W/ C & FOLIC ACID(NEPHROVITE TAB) PO SCH (10:00)
[2022-11-11 10:02] VITALS: PULSE 69; RESP 18; O2SAT 99
[2022-11-11] MEDS: CARVEDILOL 12.5 MG TAB PO SCH (10:16)
[2022-11-11 13:00] VITALS: BP 167/70; PULSE 66; RESP 19; TEMP 98.3; O2SAT 99
[2022-11-11 13:45] VITALS: BP 168/75; PULSE 70; TEMP 36.7
[2022-11-11] MEDS ORDERED: cloNIDine HCL 0.1 MG TAB PO ONE (16:00)
[2022-11-11 17:00] VITALS: BP 179/66; PULSE 69; RESP 17; TEMP 98; O2SAT 97
== END 2022-11-11 17:26 | disposition home or self-care (01) | DRG 314 ==
LOC: ER 14:44 → TELE 23:24 → TELE-WESTW 11-11 09:57
PROVIDERS: ADMIT Nurse Practitioner Family; ATTEND Nurse Practitioner Family
DX: T82.838A Hemorrhage due to vascular prosthetic devices, implants and grafts, initial encounter (principal); A41.9 Sepsis, unspecified organism; J96.01 Acute respiratory failure with hypoxia; N18.6 End stage renal disease; I13.2 Hypertensive heart and chronic kidney disease with heart failure and with stage 5 chronic kidney disease, or end stage renal disease; Z94.0 Kidney transplant status; I50.30 Unspecified diastolic (congestive) heart failure; D63.8 Anemia in other chronic diseases classified elsewhere; E11.22 Type 2 diabetes mellitus with diabetic chronic kidney disease; E78.5 Hyperlipidemia, unspecified; I16.0 Hypertensive urgency; I25.10 Atherosclerotic heart disease of native coronary artery without angina pectoris; M10.9 Gout, unspecified; Y84.1 Kidney dialysis as the cause of abnormal reaction of the patient, or of later complication, without mention of misadventure at the time of the procedure; Y92.89 Other specified places as the place of occurrence of the external cause; Z82.0 Family history of epilepsy and other diseases of the nervous system; Z82.3 Family history of stroke; Z82.49 Family history of ischemic heart disease and other diseases of the circulatory system; Z86.73 Personal history of transient ischemic attack (TIA), and cerebral infarction without residual deficits; Z88.1 Allergy status to other antibiotic agents; Z88.3 Allergy status to other anti-infective agents; Z95.1 Presence of aortocoronary bypass graft; Z95.2 Presence of prosthetic heart valve; Z95.5 Presence of coronary angioplasty implant and graft; Z99.2 Dependence on renal dialysis; Z88.8 Allergy status to other drugs, medicaments and biological substances
CPT/HCPCS: 36415; 71045; 80053; 82962; 83880; 84484; 85014; 85018; 85025; 85610; 85730; 96374; G0378; J3490